=== PATIENT | female | born 1995 | race Caucasian/White ===

== ENCOUNTER 2016-06-20 08:19 | Outpatient (CLI) | payer OTHER ==
[2016-06-20 09:00] VITALS: BP 124/77; PULSE 93; RESP 18; TEMP 98
[2016-06-20 09:07] VITALS: BMI 24.0
--- NOTE | 2016-06-20 10:40 | US ---
EXAMINATION TYPE: US OB >= 14 wk fetus DATE OF EXAM: 06/20/2016 10:01 AM COMPARISON: None CLINICAL HISTORY: patient fell on her abdomen this morning at 6:30am TECHNIQUE: Transabdominal (TA) GESTATIONAL AGE / DATING Physician Established: (26 weeks/6 days) EDC: 09/20/2016 Dates by LMP: unknown Dates by First Scan: not available Dates by Current Scan: (23 weeks/6 days) EDC: 10/11/16 SURVEY IUP: Single PLACENTA: Posterior PREVIA: No Previa SANDEEP: 12.0 cm CERVICAL LENGTH (transabdominal: norm > 3.0cm): 3.2 cm Not well visualized, ok per Jannette DODD not to d o a transvag cervix BIOMETRY PRESENTATION: Vertex BPD: 5.9 cm 24weeks / 2 days HC: 22.3 cm 24 weeks / 2 days AC: 19.4 cm 24. weeks / 0 days FL: 4.4 cm 24 weeks / 2 days ESTIMATED WEIGHT IN GRAMS: 670 grams ESTIMATED WEIGHT IN LBS/OZS: 1 lbs. 8 oz. WEIGHT PERCENTAGE BASED ON ESTABLISHED DATES: 3% HC/AC: 1.2 FL/AC: 22.5 HEART RATE: 150 bpm RHYTHM: Normal TECHNOLOGIST IMPRESSION: the anterior portion of the placenta appears somewhat heterogenous, probabl e placental lakes. Dates 3 weeks behind, notified Jannette DODD of these preliminary findings. IMPRESSION: 1. Single intrauterine gestation estimated at 23 weeks 6 days gestation based on the current ultrasou nd measurements. This would have a calculated EDC of 10/11/2016. Correlate this with her physician est ablish EDC of 09/20/2016. There is a discrepancy between expected age and current estimates. 2. Cardiac activity measures 150 bpm. 3. No acute changes evident
== END 2016-06-20 10:40 | disposition home or self-care (01) ==
LOC: FBPOP 08:19
PROVIDERS: ATTEND Obstetrics & Gynecology
DX: O20.9 Hemorrhage in early pregnancy, unspecified (principal); M25.531 Pain in right wrist; Z3A.23 23 weeks gestation of pregnancy
CPT/HCPCS: 76805; G0463; 99213

== ENCOUNTER 2016-06-20 10:51 | Emergency (ER) | payer OTHER ==
--- NOTE | 2016-06-20 11:14 | ED ---
Upper Extremity HPI - General Chief Complaint: Extremity Injury, Upper Stated Complaint: wrist pain, cleared by mother/baby Time Seen by Provider: 06/20/16 11:07 Source: patient, RN notes reviewed Mode of arrival: ambulatory Limitations: no limitations - History of Present Illness Initial Comments: 20-year-old female who is currently presents to the emergency Department chief complaint of right wrist pain. Patient states she's been falling onto her right wrist. Patient points to the ulnar area of the wrist for pain. Patient states pain is moderate worsening movement. Patient states she has a history of breaking her wrist in the past. Patient states started with that mother baby and was down here. Patient states it hurts bad enough that she bruises is broken and she believes that she needs an x-ray. Patient denies any other injuries from the incident. Patient denies any abdominal pain at this time. Patient denies any recent fever, chills, shortness of breath, chest pain, back pain, abdominal pain, nausea vomiting, numbness or tingling, dysuria or hematuria, constipation or diarrhea, headaches or visual changes, or any other current symptoms. - Related Data Home Medications Medication Instructions Recorded Confirmed Acetaminophen Tab [Tylenol Tab] 1,000 mg PO Q6HR PRN 03/07/16 06/20/16 Pnv with Ca,No.72/Iron/FA 1 tab PO DAILY 06/20/16 06/20/16 [ Plus Tablet] Allergies Allergy/AdvReac Type Severity Reaction Status Date / Time No Known Allergies Allergy Verified 06/20/16 11:14 Review of Systems ROS Statement: Those systems with pertinent positive or pertinent negative responses have been documented in the HPI. ROS Other: All systems not noted in ROS Statement are negative. Past Medical History Past Medical History: No Reported History Additional Past Medical History / Comment(s): Obstetric history: She has had 2 previous vaginal deliveries. This is her third and she has had care with me since 10 weeks. O+, abs neg, Rub Imm, RPR NR, Hep B neg, HIV NR. This started as twins but there was a vanishing twin who passed at 8 weeks. Neg quad screen, normal anatomy US and normal echo. normal 1hr GTT and GBS neg. History of Any Multi-Drug Resistant Organisms: None Reported Past Surgical History: No Surgical Hx Reported Additional Past Anesthesia/Blood Transfusion Reaction / Comment(s): n o hx. Past Psychological History: No Psychological Hx Reported Smoking Status: Current every day smoker Past Alcohol Use History: None Reported Past Drug Use History: None Reported - Past Family History Brother(s) Additional Family Medical History / Comment(s): hemophilia Father Family Medical History: No Reported History General Exam - General Exam Comments Initial Comments: General: The patient is awake and alert, in no distress, and does not appear acutely ill. Neck: The neck is supple, there is no tenderness. Cardiovascular: There is a regular rate and rhythm. No murmur, rub or gallop is appreciated. Respiratory: Lungs are clear to auscultation, respirations are non-labored, breath sounds are equal. No wheezes, stridor, rales, or rhonchi. Musculoskeletal: Patient has 2+ pulses at the right lower extremity. Full range of motion of the right elbow on the right wrist with tenderness on full extension and flexion. Tenderness to palpation of the distal aspect of the ulna. No tenderness to palpation throughout the hand or digits. No anatomical snuffbox tenderness. No tenderness to palpation of the right elbow. Neurological: CN II-XII intact, There are no obvious motor or sensory deficits. Coordination appears grossly intact. Speech is normal. Skin: Skin is warm and dry and no rashes or lesions are noted. Psychiatric: Normal mood and affect. Limitations: no limitations Course Vital Signs 06/20/16 11:03 Temperature 98.6 F Pulse Rate 85 Respiratory 20 Rate Blood Pressure 141/64 O2 Sat by Pulse 99 Oximetry Medical Decision Making - Medical Decision Making 20-year-old female presents emergency Department chief complaint of right wrist pain. At this time we did discuss risk of getting an x-ray. We did discuss that she does have point tenderness however. Patient states she would like an x -ray she does believe that it is broken and is causing her some discomfort. Patient will undergo the x-ray the patient does state that she understands the risk. X-ray of the wrist is reviewed and does show a wrist contusion. We discussed Follow-Up. Discussed Return Parameters. We Discussed Tylenol for Pain Control. Patient States That She Understood All Questions Have Been Answered. Discharged Home. - Radiology Data Radiology results: report reviewed, image reviewed Disposition Clinical Impression: Contusion of right wrist, initial encounter Disposition: HOME SELF-CARE Condition: Stable Instructions: Contusion in Adults (ED) Additional Instructions: Please use medication as discussed. Please follow up with family doctor if symptoms have not improved over the next two days. Please return to the emergency room if your symptoms increase or worsen or for any other concerns. Referrals: Anjel El MD [Primary Care Provider] - 1-2 days Time of Disposition: 11:34
--- NOTE | 2016-06-20 11:26 | XR ---
EXAMINATION TYPE: XR wrist complete RT DATE OF EXAM: 06/20/2016 11:19 AM COMPARISON: NONE HISTORY: Pain, fall TECHNIQUE: 4 view right wrist FINDINGS: No acute fractures are evident. Joint spaces are preserved. Soft tissues are normal. If there is pain at the anatomic snuff box, nuclear medicine bone scan can be performed for additiona l evaluation. Follow-up examinations can be performed 7-10 days from acute trauma for continued pain. IMPRESSION: 1. Normal 4 view right wrist
[2016-06-20 12:06] VITALS: BP 126/62; PULSE 104; RESP 16; TEMP 98.1
== END 2016-06-20 12:05 | disposition home or self-care (01) ==
LOC: EC 10:51
DX: O26.899 Other specified pregnancy related conditions, unspecified trimester (principal); O99.330 Smoking (tobacco) complicating pregnancy, unspecified trimester; S60.211A Contusion of right wrist, initial encounter; W19.XXXA Unspecified fall, initial encounter
CPT/HCPCS: 76805; 99213; 99283

== ENCOUNTER → 2016-07-24 | Outpatient (CLI) | payer OTHER ==
[2016-07-24 10:43] LABS: CH 31.7; CHCM 33.6; HDW 2.77; HGB 11.1 gm/dL (11.4-16.0); MCHC 32.7 g/dL (31.0-37.0); MCV 94.7 fL (80.0-100.0); RBC 3.59 m/uL (3.80-5.40); RDW 12.7 % (11.5-15.5); WBC 7.8 k/uL (3.8-10.6)
[2016-07-24 10:59] LABS: Non-African American GFR(MDRD) >60 (>60 ml/min/1.73 sqM)
[2016-07-24 11:29] LABS: Hepatitis B Surface Ag Index 0.06
[2016-07-25 06:48] LABS: HIV-1/HIV-2 Ab Screen NONREAC (NON REAC)
== END | disposition home or self-care (01) ==
LOC: LABWHC1 09:24
PROVIDERS: ATTEND Obstetrics & Gynecology
DX: O26.812 Pregnancy related exhaustion and fatigue, second trimester (principal); Z3A.00 Weeks of gestation of pregnancy not specified
CPT/HCPCS: 36415; 82565; 82950; 85027; 86762; 86780; 86850; 86900; 86901; 87340; 87389

== ENCOUNTER → 2016-09-11 | Outpatient (CLI) | payer OTHER ==
--- NOTE | 2016-09-11 15:41 | US ---
EXAMINATION TYPE: US OB anatomy transabd DATE OF EXAM: 09/11/2016 2:49 PM COMPARISON: earlier scans in pacs HISTORY: lga, no complaints per pt TECHNIQUE: Transabdominal (TA) EXAM MEASUREMENTS: GESTATIONAL AGE / DATING Physician Established: (35 weeks/6 days) EDC: 10/10/16 Dates by LMP: uncertain lmp Dates by First Scan: (35 weeks/6 days) EDC: 10/10/16 Dates by Current Scan for: (36 weeks/4 days) EDC: 10/05/16 SURVEY IUP: Single PLACENTA: Fundal PREVIA: No previa SANDEEP: 11.3 cm Normal CERVICAL LENGTH (transabdominal: norm > 3.0cm): 4.8 cm BIOMETRY PRESENTATION: Vertex LIE: Longitudinal BPD: 8.9 cm 36 weeks / 1 days HC: 32.8 cm 37 weeks / 2 days AC: 32.5 cm 36 weeks / 3 days FL: 7.1 cm 36 weeks / 2 days ESTIMATED WEIGHT IN GRAMS: 2939 grams ESTIMATED WEIGHT IN LBS/OZS: 6 lbs. 8 oz. WEIGHT PERCENTAGE BASED ON ESTABLISHED DATE: 67 % HC/AC: 1.01 FL/AC: 21 HEART RATE: 129 bpm RHYTHM: Normal ANATOMY SEEN (within normal limits): * Lateral Vent (< 1 cm) 0.7 cm * Midline Falx Four Chamber Heart Stomach Situs Nose / Lips Diaphragm Kidneys (bilateral) Bladder Cord Insert Three Vessel Cord Longitudinal Spine Transverse Spine ANATOMY NOT SEEN: Arms (bilateral) Legs (bilateral) Outflow tracts: LVOT/RVOT Cavus Septi Pellucidi Choroid Plexus (bilateral) Cisterna Magna (< 1.1 cm) cm * Cerebellum (varies with age) cm Viable iup, growth congruent with established dates, no abnormality seen by ultrasound, exam limitati ons due to advanced age and lie. IMPRESSION: DEL RIO FETUS PRESENT IN A VERTEX LIE WITH A GESTATIONAL AGE OF 36 WEEKS 4 DAYS +/- 3 WEEKS. ESTIMA DONOVAN DATE OF CONFINEMENT BASED ON THIS EXAMINATION IS 10/05/2016. PLEASE NOTE THAT THE MORPHOLOGIC EXAMINATION IS QUITE LIMITED.
== END | disposition home or self-care (01) ==
LOC: RADUSWWP 14:07
PROVIDERS: ATTEND Obstetrics & Gynecology
DX: O36.63X0 Maternal care for excessive fetal growth, third trimester, not applicable or unspecified (principal); Z3A.36 36 weeks gestation of pregnancy
CPT/HCPCS: 76811

== ENCOUNTER 2016-09-24 00:22 | Outpatient (CLI) | payer OTHER ==
[2016-09-24 12:26] VITALS: BP 131/70; RESP 18; TEMP 97.6
[2016-09-24 12:31] LABS: Appearance,Urine Clear (Clear); Bilirubin,Urine Negative (Negative); Glucose,Urine (UA) Negative (Negative); Ketones,Urine Negative (Negative); Leukocyte Esterase,Urine Negative (Negative); Nitrite,Urine Negative (Negative); PH, Urine 6.5 (5.0-8.0); Protein,Urine Trace (Negative); Specific Gravity,Urine 1.021 (1.001-1.035); UA Billing (MACRO vs. MICRO) CHEM
[2016-09-24] MEDS ORDERED: ONDANSETRON 4 MG TAB PO ONE (13:00)
[2016-09-24 13:47] VITALS: PULSE 86
--- NOTE | 2016-09-24 20:18 | P.MSEPDOC ---
Presenting Problems - Arrival Data Date of Arrival on Unit: 09/24/16 Time of Arrival on Unit: 00:23 Mode of Transport: Wheelchair - Complaint OB-Reason for Admission/Chief Complaint: Possible Onset of Labor, Acute Nausea/ Vomiting Comment: n/v onset 4 hrs ago. multiple occasions. states unable to keep fluids down. Medical History - Information : 4 Para: 3 Term: 3 : 0 Abortions: Spontaneous or Elective: 0 Number of Living Children: 3 - Gestational Age Expected Date of Delivery: 10/10/16 Gestational Age by KELLY (wks/days): 37 Weeks and 5 Days - History Complications: Smoker Review of Systems - Review of Systems Constitutional: No problems Breast: No problems ENT: No problems Cardiovascular: No problems Respiratory: No problems Genitourinary: No problems Musculoskeletal: No problems Neurological: No problems Skin: No problems Comment: n/v Vital Signs - Temperature Temperature: 97.6 F Temperature Source: Oral - Pulse Right Pulse Rate: 86 Pulse Assessment Method: Automatic Cuff - Respirations Respiratory Rate: 18 Oxygen Delivery Method: Room Air - Blood Pressure Right Arm Blood Pressure: 131/70 Blood Pressure Mean: 90 Blood Pressure Source: Automatic Cuff Medical Screen Scoring (Pre) - Cervical Exam Dilation: 1-3 cm = 1 Membranes: Intact - Uterine Contractions Frequency: N/A Duration: N/A Intensity: N/A - Maternal Vital Signs Maternal Temperature: N/A Maternal Blood Pressure: N/A Signs of Preeclampsia: N/A Maternal Respirations: N/A - Maternal Trauma Maternal Trauma: N/A - Assessment Baseline FHR: 135 Heart Rate - NICHD Category: Category I (Normal) = 0 NST: Reactive Position: N/A Station: N/A - Total Score Total Score (Pre): 1 - Level of Risk Level of Risk: Low (0-5) Physician Notification (Pre) - Physician Notified Physician/Practitioner Notifed:: yes Spoke With: ezekiel - Notification Comment Comment: zofran 4 mg po. disch home. push fluids. advance diet slowly. keep appt with dr worrell on . if any worsening of symptoms call Medical Screen Scoring (Post) - Cervical Exam Dilation: Exam Deferred Effacement: Exam Deferred Membranes: Intact - Uterine Contractions Frequency: N/A Duration: N/A Intensity: N/A - Maternal Vital Signs Maternal Temperature: N/A Maternal Blood Pressure: N/A Signs of Preeclampsia: N/A Maternal Respirations: N/A - Maternal Trauma Maternal Trauma: N/A - Assessment Heart Rate: 135 Heart Rate - NICHD Category: Category I (Normal) = 0 NST: Reactive Position: N/A Station: N/A - Total Score Total Score (Post): 0 - Post Treatment Level of Risk Post Treatment Level of Risk: N/A Physician Notification (Post) - Physician Notified Physician Notified Date: 09/24/16 Physician Notified Time: 13:15 Physician/Practitioner Notified:: ezekiel Spoke With: ezekiel New Order Received: Yes - Notification Comment Comment: discharge home Disposition - Disposition OB Disposition: Discharge to home Discharge Date: 09/24/16 Discharge Time: 13:45 I agree with the RN Medical Screening Exam: Yes Risk & Benefit of care provided described in d/c instruction: Yes Diagnosis: LATE VOMITING OF
== END 2016-09-24 02:40 | disposition home or self-care (01) ==
LOC: FBPOP 00:22
PROVIDERS: ATTEND Obstetrics & Gynecology
DX: O21.2 Late vomiting of pregnancy (principal); Z3A.37 37 weeks gestation of pregnancy
CPT/HCPCS: 59025; 81003; G0463; 99213; 99214

== ENCOUNTER 2016-09-24 11:31 | Outpatient (CLI) | payer OTHER ==
[2016-09-24] MEDS ORDERED: ONDANSETRON 4 MG TAB PO ONE ×2 (13:24→13:33)
[2016-09-24 15:00] VITALS: BP 131/70; PULSE 90; RESP 18
[2016-09-24 15:29] VITALS: TEMP 97.6
--- NOTE | 2016-09-24 20:19 | P.MSEPDOC ---
Presenting Problems - Arrival Data Date of Arrival on Unit: 09/24/16 Time of Arrival on Unit: 11:40 Mode of Transport: Ambulatory - Complaint OB-Reason for Admission/Chief Complaint: Possible Onset of Labor, Acute Nausea/ Vomiting Medical History - Information : 4 Para: 3 Term: 3 : 0 Abortions: Spontaneous or Elective: 0 Number of Living Children: 0 - Gestational Age Expected Date of Delivery: 10/10/16 Gestational Age by KELLY (wks/days): 37 Weeks and 5 Days Review of Systems - Review of Systems Constitutional: No problems Breast: No problems ENT: No problems Cardiovascular: No problems Respiratory: No problems Genitourinary: No problems Musculoskeletal: No problems Neurological: No problems Skin: No problems Comment: n/v x 4 hrs Vital Signs - Temperature Temperature: 97.6 F Temperature Source: Oral - Pulse Right Brachial Pulse Rate: 90 Pulse Assessment Method: Automatic Cuff - Respirations Respiratory Rate: 18 Oxygen Delivery Method: Room Air O2 Sat by Pulse Oximetry: 98 - Blood Pressure Right Arm Blood Pressure: 131/70 Blood Pressure Mean: 90 Blood Pressure Source: Automatic Cuff Medical Screen Scoring (Pre) - Cervical Exam Dilation: 1-3 cm = 1 Effacement: Exam Deferred Membranes: Intact - Uterine Contractions Frequency: N/A Duration: N/A Intensity: N/A - Maternal Vital Signs Maternal Temperature: N/A Maternal Blood Pressure: N/A Signs of Preeclampsia: N/A Maternal Respirations: N/A - Maternal Trauma Maternal Trauma: N/A - Assessment Baseline FHR: 135 Heart Rate - NICHD Category: Category I (Normal) = 0 NST: Reactive Position: N/A Station: N/A - Total Score Total Score (Pre): 1 - Level of Risk Level of Risk: Low (0-5) Physician Notification (Pre) - Physician Notified Spoke With: ezekiel - Notification Comment Comment: zofran 4 mg po x 1 and dis ch home. to keep next sched appt Medical Screen Scoring (Post) - Cervical Exam Dilation: 1-3 cm = 1 Effacement: Exam Deferred Membranes: Intact - Uterine Contractions Frequency: N/A Duration: N/A Intensity: N/A - Maternal Vital Signs Maternal Temperature: N/A Maternal Blood Pressure: N/A Signs of Preeclampsia: N/A Maternal Respirations: N/A - Maternal Trauma Maternal Trauma: N/A - Assessment Heart Rate: 135 Heart Rate - NICHD Category: Category I (Normal) = 0 NST: Reactive Position: N/A Station: N/A - Total Score Total Score (Post): 1 - Post Treatment Level of Risk Post Treatment Level of Risk: Low (0-5) Physician Notification (Post) - Physician Notified Physician Notified Date: 09/24/16 Physician Notified Time: 13:15 Physician/Practitioner Notified:: ezekiel New Order Received: Yes - Notification Comment Comment: disch prder received Disposition - Disposition OB Disposition: Discharge to home Discharge Date: 09/24/16 Discharge Time: 13:45 I agree with the RN Medical Screening Exam: Yes Risk & Benefit of care provided described in d/c instruction: Yes Diagnosis: LATE VOMITING OF
== END 2016-09-24 13:45 | disposition home or self-care (01) ==
LOC: FBPOP 11:31
PROVIDERS: ATTEND Obstetrics & Gynecology
DX: O21.2 Late vomiting of pregnancy (principal); Z3A.37 37 weeks gestation of pregnancy
CPT/HCPCS: 59025; G0463; 99214

== ENCOUNTER 2016-10-02 14:43 | Inpatient (IN) | payer OTHER ==
[2016-10-02] MEDS ORDERED: TERBUTALINE 1 MG/ML VIAL SQ PRN (17:16)
[2016-10-02] MEDS ORDERED: OXYTOCIN 10 UNIT/ML 1 ML VIAL IM PRN (17:16)
[2016-10-02] MEDS ORDERED: LIDOCAINE 1% (PF) 10 MG/ML (30 ML SDV) SQ PRN (17:16)
[2016-10-02] MEDS ORDERED: METHYLERGONOVINE 0.2 MG/ML 1 ML AMP IM PRN (17:16)
[2016-10-02] MEDS ORDERED: CARBOPROST TROMETHAMINE 250 MCG/ML 1 ML AMP IM PRN (17:16)
[2016-10-02] MEDS ORDERED: AMPICILLIN 2,000 MG in SODIUM CHLORIDE 0.9% 100 ML IVPB STA (17:19)
[2016-10-02] MEDS: LACTATED RINGERS 1,000 ML IV SCH ×2 (17:28→19:07)
[2016-10-02 17:43] LABS: Basophils % (A) 0 %; CHCM 33.3; Eosinophils # (A) 0.1 k/uL (0-0.7); Eosinophils % (A) 1 %; HCT 34.9 % (34.0-46.0); HDW 3.29; HGB 11.4 gm/dL (11.4-16.0); Luc # (Auto) 0.21; Luc % (Auto) 2; Lymphocytes # (A) 1.8 k/uL (1.0-4.8); Lymphocytes % (A) 15 %; MCH 29.7 pg (25.0-35.0); MCHC 32.8 g/dL (31.0-37.0); MCV 90.7 fL (80.0-100.0); Mean Platelet Volume 8.7; Monocytes # (A) 0.6 k/uL (0-1.0); Monocytes % (A) 5 %; Neutrophils # (A) 9.4 k/uL (1.3-7.7); Neutrophils % (A) 78 %; RBC 3.85 m/uL (3.80-5.40); RDW 14.3 % (11.5-15.5); WBC 12.2 k/uL (3.8-10.6); WBC (Perox) 12.39
[2016-10-02 17:47] VITALS: BMI 29.1
--- NOTE | 2016-10-02 18:24 | P.HPOB ---
History of Present Illness H&P Date: 10/02/16 Chief Complaint: Contractions This patient is a 21-year-old 4 para 3 female estimated date of confinement 10/10/2016 estimated gestational age 38-6/7 weeks who presents to labor and delivery with regular painful contractions. Patient most recently was seen in the office per Dr. Alejandro and was 2 cm dilated and is now 4 cm dilated thought to be in active labor. care is per Dr. Alejandro appears to be uncomplicated although she did have a urine culture positive for group B strep. Vaginal culture was negative. Review of Systems Constitutional: Denies chills, Denies fever Ears, nose, mouth and throat: Denies headache, Denies sore throat Cardiovascular: Denies chest pain, Denies shortness of breath Respiratory: Denies cough Gastrointestinal: Reports heartburn Genitourinary: Reports Menstruation: Reports amenorrhea Past Medical History Past Medical History: No Reported History Additional Past Medical History / Comment(s): Patient has had 3 spontaneous vaginal deliveries ranging from 8 lbs. 9 oz.-9 lbs. 6 oz. History of Any Multi-Drug Resistant Organisms: None Reported Past Surgical History: No Surgical Hx Reported Past Anesthesia/Blood Transfusion Reactions: No Reported Reaction Additional Past Anesthesia/Blood Transfusion Reaction / Comment(s): n o hx. Past Psychological History: No Psychological Hx Reported Smoking Status: Current every day smoker Past Alcohol Use History: None Reported Past Drug Use History: None Reported - Past Family History Brother(s) Additional Family Medical History / Comment(s): hemophilia Father Family Medical History: No Reported History Medications and Allergies Home Medications Medication Instructions Recorded Confirmed Type Acetaminophen Tab [Tylenol Tab] 650 mg PO DIRECTED PRN 03/07/16 09/24/16 History Allergies Allergy/AdvReac Type Severity Reaction Status Date / Time No Known Allergies Allergy Verified 10/02/16 14:55 Exam - Vital Signs Vital signs: Vital Signs Temp Pulse Resp BP 10/02/16 17:34 97.6 F 93 16 129/71 10/02/16 16:50 97.6 F 93 16 129/71 Intake and Output 10/02/16 10/02/16 10/02/16 06:59 14:59 22:59 Other: Weight 97.522 kg 97.522 kg Patient Weight 10/03/16 06:59 Weight 97.522 kg - OBG Physical Exam Abdomen: bowel sounds normal, no diffuse tenderness, no bruit present, no guarding noted, no hepatomegaly, no splenomegaly, no mass Vulva: both: normal Vagina: normal moisture, no discharge Cervix: no lesion (Cervix is 4 cm dilated and 50% effaced.), no discharge Uterus: enlarged (Fundal height is consistent with a term .) Results blood work shows she is O positive, rubella nonimmune, RPR nonreactive , HIV nonreactive, hepatitis B negative, group B strep vaginal culture was negative, ultrasounds have been normal. Result Diagrams: 10/02/16 17:26 Abnormal Lab Results - Last 24 Hours (Table) 10/02/16 Range/Units 17:26 WBC 12.2 H (3.8-10.6) k/uL Neutrophils # 9.4 H (1.3-7.7) k/uL Assessment and Plan (1) Normal labor Narrative/Plan: This is a pleasant 21-year-old 4 para 3 female 38-6/7 weeks' gestation in early active labor. Patient has a history of positive group B strep urine culture. Plan is antibiotic prophylaxis due to suspected colonization and anticipate vaginal delivery. Status: Acute (2) H/O group B Streptococcus urinary tract infection, currently Status: Acute
[2016-10-02] MEDS ORDERED: fentaNYL (PF) 50 MCG/ML 5 ML AMP ONE (18:45)
[2016-10-02] MEDS ORDERED: SODIUM CHLORIDE 0.9% 100 ML BAG ONE (18:45)
[2016-10-02] MEDS ORDERED: OXYTOCIN 30 UNITS/500 ML NS 30 UNIT in SALINE 1 500ML.BAG IV SCH (18:45)
[2016-10-02] MEDS ORDERED: BUPIVACAINE (PF) 0.25% 30 ML VIAL ONE (18:45)
[2016-10-02] MEDS ORDERED: BUPIVACAINE (PF) 0.25% 25 ML, fentaNYL (PF) 200 MCG in SODIUM CHLORIDE 0.9% 71 ML EPIDURAL ONE (21:27)
[2016-10-02] MEDS ORDERED: AMPICILLIN 1,000 MG in SODIUM CHLORIDE 0.9% 50 ML IVPB SCH (21:30)
[2016-10-02] MEDS ORDERED: WITCH HAZEL 1 EACH MED..PAD TOPICAL PRN (21:56)
[2016-10-02] MEDS ORDERED: Acetaminophen-Codeine 300-30mg TAB PO PRN (21:56)
[2016-10-02] MEDS ORDERED: LANOLIN CREAM 5 GM TUBE TOPICAL PRN (21:56)
[2016-10-02] MEDS ORDERED: diphenhydrAMINE 25 MG CAP PO PRN (21:56)
[2016-10-02] MEDS ORDERED: ACETAMINOPHEN TAB 325 MG TAB PO PRN (21:56)
[2016-10-02] MEDS ORDERED: ZOLPIDEM 5 MG TAB PO PRN (21:56)
[2016-10-02] MEDS ORDERED: BENZOCAINE/MENTHOL SPRAY 1 GM/SPRAY AEROSOL TOPICAL PRN (21:56)
[2016-10-02] MEDS ORDERED: diphenhydrAMINE 50 MG/ML 1 ML VIAL IVP PRN (21:56)
[2016-10-02] MEDS ORDERED: HYDROCORTISONE 2.5% RECTAL CREAM 30 GM TUBE RECTAL PRN (21:56)
[2016-10-02] MEDS ORDERED: SIMETHICONE 80 MG CHEWABLE PO PRN (21:56)
[2016-10-02] MEDS ORDERED: MEASLES-MUMPS-RUBELLA VACC/PF 12,500 UNIT/0.5 ML VIAL SQ ONE (21:56)
[2016-10-02] MEDS ORDERED: BISACODYL 10 MG SUPP RECTAL PRN (21:56)
--- NOTE | 2016-10-02 22:02 | P.PROBDLV ---
Vaginal Delivery Note - . Vaginal Delivery Note: Normal vaginal delivery viable male Apgars 9 and 9 delivery time is 2144 hrs. Please see dictated H&P for intimate details of this patient's admission. Brief summary this is a 21-year-old 4 para 3 female 38-6/7 weeks gestation admitted to labor and delivery in early labor patient has artificial rupture membranes for clear fluid at 4 cm. Labor progresses and she does get an epidural for pain control. Patient progresses quickly thereafter to complete pushes the head to the perineum. The posterior perineum was supported and we have controlled delivery of 's head over the intact perineum. Mouth and nares are bulb suctioned. With gentle downward traction we have delivery the anterior and posterior shoulder and rest this infant's body. This is a vigorous viable male Apgars are 9 and 9 delivery time is 2144 hrs. After delivery of the the umbilical cords doubly clamped and cut the infant is laid on the mother's abdomen. The placenta is then spontaneously delivered intact. Estimated blood loss is 150 mL. There are no lacerations and no repair is necessary. and mother are stable in delivery room. All counts are correct 3. There are no complications.
[2016-10-02] MEDS: IBUPROFEN 600 MG TAB PO PRN (22:15)
[2016-10-03] MEDS: NICOTINE 14MG/24HR PATCH TRANSDERM SCH ×2 (00:32→02:04)
[2016-10-03] MEDS: Acetaminophen-Codeine 300-30mg TAB PO PRN ×4 (00:33→18:09)
[2016-10-03] MEDS: IBUPROFEN 600 MG TAB PO PRN ×4 (04:09→22:50)
--- NOTE | 2016-10-03 06:21 | P.PNOBGVD ---
Subjective - Subjective Patient reports: Reports appetite normal, Reports voiding normally, Reports pain well controlled, Reports ambulating normally : doing well Objective - Latest Vital Signs Latest vital signs: Vital Signs Temp Pulse Resp BP 10/03/16 04:00 98.2 F 79 16 124/76 10/02/16 23:56 98.6 F 81 16 123/62 10/02/16 23:26 76 16 130/62 10/02/16 22:56 78 16 140/70 10/02/16 22:41 73 16 119/64 10/02/16 22:26 78 16 131/70 10/02/16 22:12 73 16 132/72 10/02/16 21:57 97.5 F L 78 16 140/67 10/02/16 17:34 97.6 F 93 16 129/71 10/02/16 16:50 97.6 F 93 16 129/71 Intake and Output 10/02/16 10/02/16 10/03/16 14:59 22:59 06:59 Intake Total 1003.317 Output Total 150 Balance 853.317 Intake: Intake, IV Titration 1003.317 Amount Lactated Ringers 1,000 ml 1000 @ 125 mls/hr IV .Q8H BREEZY Rx#:[id number] Oxytocin 30 Units/500 ml 3.317 Ns 30 unit In Saline 1 500ml.bag @ 1 MILLIUNIT/ MIN 1 mls/hr IV .Q24H BREEZY Rx#:[id number] Output: Estimated Blood Loss 150 Other: # Voids 1 Weight 97.522 kg 97.522 kg Patient Weight 10/03/16 06:59 Weight 97.522 kg - Exam Lungs: bilateral: normal Chest: Normal S1, Normal S2 Extremities: Present: normal Abdomen: Present: normal appearance, soft Uterus: Present: normal, firm - Labs Labs: Abnormal Lab Results - Last 24 Hours (Table) 10/02/16 Range/Units 17:26 WBC 12.2 H (3.8-10.6) k/uL Neutrophils # 9.4 H (1.3-7.7) k/uL Assessment and Plan (1) Normal labor Narrative/Plan: day #1. Patient is resting without complaints. Vital signs are stable she is afebrile. Uterus is firm nontender she's having normal lochia. My impression is this is a normal course. Plan is to continue routine care discharge home tomorrow. Current Visit: Yes Status: Acute Code(s): O80 - ENCOUNTER FOR FULL-TERM UNCOMPLICATED DELIVERY; Z37.9 - OUTCOME OF DELIVERY, UNSPECIFIED SNOMED Code(s ): 04493117 (2) H/O group B Streptococcus urinary tract infection, currently Current Visit: Yes Status: Acute Code(s): O09.899 - SUPERVISION OF OTHER HIGH RISK PREGNANCIES, UNSP TRIMESTER; Z87.440 - PERSONAL HISTORY OF URINARY ( TRACT) INFECTIONS SNOMED Code(s): 56296800
[2016-10-03] MEDS: SENNOSIDES-DOCUSATE SODIUM 1 EACH TAB PO SCH ×2 (07:48→20:17)
[2016-10-03] MEDS ORDERED: NICOTINE 14MG/24HR PATCH TRANSDERM SCH (09:00)
[2016-10-04] MEDS: Acetaminophen-Codeine 300-30mg TAB PO PRN (03:02)
--- NOTE | 2016-10-04 06:08 | P.PNOBGVD ---
Subjective - Subjective Patient reports: Reports appetite normal, Reports voiding normally, Reports pain well controlled, Reports ambulating normally : doing well Objective - Latest Vital Signs Latest vital signs: Vital Signs Temp Pulse Resp BP 10/04/16 00:00 97.6 F 76 16 136/80 10/03/16 16:00 98.3 F 77 16 129/72 10/03/16 08:00 98.2 F 87 18 128/73 Intake and Output 10/03/16 10/03/16 10/04/16 14:59 22:59 06:59 Other: # Voids 1 - Exam Lungs: bilateral: normal Chest: Normal S1, Normal S2 Extremities: Present: normal Abdomen: Present: normal appearance, soft Uterus: Present: normal, firm Assessment and Plan (1) Normal labor Narrative/Plan: day #2. Patient is resting without complaints. Vital signs are stable she is afebrile. Uterus is firm nontender she's having normal lochia. My impression this is a normal course. Plan is to continue routine care discharge home today. Current Visit: Yes Status: Acute Code(s): O80 - ENCOUNTER FOR FULL-TERM UNCOMPLICATED DELIVERY; Z37.9 - OUTCOME OF DELIVERY, UNSPECIFIED SNOMED Code(s ): 44177877 (2) H/O group B Streptococcus urinary tract infection, currently Current Visit: Yes Status: Acute Code(s): O09.899 - SUPERVISION OF OTHER HIGH RISK PREGNANCIES, UNSP TRIMESTER; Z87.440 - PERSONAL HISTORY OF URINARY ( TRACT) INFECTIONS SNOMED Code(s): 59994247
--- NOTE | 2016-10-04 06:14 | P.DS ---
Providers Date of admission: 10/02/16 17:13 Expected date of discharge: 10/04/16 Attending physician: Oliver Eastman Primary care physician: Glory Alejandro - Discharge Diagnosis(es) (1) Normal labor Current Visit: Yes Status: Acute (2) H/O group B Streptococcus urinary tract infection, currently Current Visit: Yes Status: Acute Hospital Course: Please see dictated H&P for intimate details of this patient's admission. Brief summary this is a 21-year-old 4 para 3 female 38-6/7 weeks gestation who is admitted to labor and delivery in active labor. Patient goes on to have a vaginal delivery viable male . Please see dictated delivery note. day #2 patient is without complaints and wishes to go home. Patient's felt be stable for discharge home follow up with Dr. Alejandro and 6 weeks. Procedures: Normal vaginal delivery. Patient Condition at Discharge: Good Plan - Discharge Summary New Discharge Prescriptions: Acetaminophen-Codeine 300-30mg [Tylenol w/codeine #3] 1 - 2 each PO Q4HR PRN # 30 tab PRN Reason: Mild Pain exceeding Tylenol Ibuprofen [Motrin] 600 mg PO Q6HR PRN #40 tab PRN Reason: Mild Pain Or Fever >= 100.5 Discharge Medication List Acetaminophen Tab [Tylenol Tab] 650 mg PO DIRECTED PRN 03/07/16 [History] Acetaminophen-Codeine 300-30mg [Tylenol w/codeine #3] 1 - 2 each PO Q4HR PRN # 30 tab 10/04/16 [Rx] Ibuprofen [Motrin] 600 mg PO Q6HR PRN #40 tab 10/04/16 [Rx] Follow up Appointment(s)/Referral(s): Glory Alejandro DO [Primary Care Provider] - 11/09/16 11:15 am Patient Instructions/Handouts: Vaginal Delivery (DC) Activity/Diet/Wound Care/Special Instructions: No intercourse or anything per vagina for 6 weeks. Please call if any fever, chills, excessive vaginal bleeding, and/or abdominal pain. Discharge Disposition: HOME SELF-CARE
[2016-10-04] MEDS: IBUPROFEN 600 MG TAB PO PRN (07:44)
[2016-10-04] MEDS: SENNOSIDES-DOCUSATE SODIUM 1 EACH TAB PO SCH (07:54)
[2016-10-04 08:09] VITALS: BP 125/80; PULSE 69; RESP 18; TEMP 98.3
== END 2016-10-04 09:27 | disposition home or self-care (01) | DRG 775 ==
LOC: FBPOP 14:43 → 4FBP 17:13
PROVIDERS: ADMIT Obstetrics & Gynecology; ATTEND Obstetrics & Gynecology
PROC: 10E0XZZ Delivery of Products of Conception, External Approach (ICD-10-PCS; principal; 2016-10-02)
PROC: 10907ZC Drainage of Amniotic Fluid, Therapeutic from Products of Conception, Via Natural or Artificial Opening (ICD-10-PCS; 2016-10-02)
PROC: 3E0134Z Introduction of Serum, Toxoid and Vaccine into Subcutaneous Tissue, Percutaneous Approach (ICD-10-PCS; 2016-10-02)
PROC: 3E0S3NZ Introduction of Analgesics, Hypnotics, Sedatives into Epidural Space, Percutaneous Approach (ICD-10-PCS; 2016-10-02)
DX: O99.334 Smoking (tobacco) complicating childbirth (principal); B95.1 Streptococcus, group B, as the cause of diseases classified elsewhere; O23.40 Unspecified infection of urinary tract in pregnancy, unspecified trimester; F17.200 Nicotine dependence, unspecified, uncomplicated; Z87.440 Personal history of urinary (tract) infections; Z37.0 Single live birth; Z3A.38 38 weeks gestation of pregnancy; Z23 Encounter for immunization; Z83.2 Family history of diseases of the blood and blood-forming organs and certain disorders involving the immune mechanism
CPT/HCPCS: 59025; 84112; 85025; 88307; 90471; 90707; 99213

== ENCOUNTER 2016-11-12 14:22 | Emergency (ER) | payer OTHER ==
[2016-11-12 14:43] VITALS: BP 136/69; PULSE 68; RESP 20; TEMP 98.4
[2016-11-12] MEDS ORDERED: IBUPROFEN 800 MG TAB PO STA (14:51)
--- NOTE | 2016-11-12 15:27 | XR ---
EXAMINATION TYPE: XR elbow complete LT DATE OF EXAM: 11/12/2016 3:21 PM COMPARISON: NONE HISTORY: Pain TECHNIQUE: 3 views FINDINGS: I see no fracture nor dislocation. Joint spaces are normal. There is no sign of elbow joint effusion. IMPRESSION: Negative left elbow exam.
--- NOTE | 2016-11-12 15:28 | XR ---
EXAMINATION TYPE: XR lumbosacral spine min 4V DATE OF EXAM: 11/12/2016 3:21 PM COMPARISON: NONE HISTORY: Back pain TECHNIQUE: 5 views FINDINGS: Vertebra have normal spacing and alignment. Posterior elements are intact. Sacroiliac joint s are normal. There is no evidence of a compression fracture. IMPRESSION: Negative lumbar spine exam.
--- NOTE | 2016-11-12 15:41 | ED ---
Upper Extremity HPI - General Chief Complaint: Extremity Injury, Upper Stated Complaint: L arm injury Time Seen by Provider: 11/12/16 14:45 Source: patient Mode of arrival: ambulatory Limitations: no limitations - History of Present Illness Initial Comments: Patient is 21-year-old female presenting to the emergency department with complaints of left elbow pain and left lumbar sacral back pain. Patient states she was sitting on a camping chair last night when she fell off and hit a bench. Patient states when she woke up this morning her left elbow and left lower back was aching. Patient denies recent illness, chills, fevers, nausea, vomiting, shortness of breath, chest pain, abdominal pain, numbness or tingling. Patient denies dysuria, hematuria, or urgency. Patient denies constipation or diarrhea. Patient states she took some Tylenol at 8 AM this morning. Patient currently rates pain 6 out of 10, described as aching. Exacerbated with movement, relieved with rest. - Related Data Home Medications Medication Instructions Recorded Confirmed Acetaminophen Tab [Tylenol Tab] 650 mg PO DIRECTED PRN 03/07/16 09/24/16 Previous Rx's Medication Instructions Recorded Acetaminophen-Codeine 300-30mg 1 - 2 each PO Q4HR PRN #30 tab 10/04/16 [Tylenol w/codeine #3] Ibuprofen [Motrin] 600 mg PO Q6HR PRN #40 tab 10/04/16 Ibuprofen [Motrin] 800 mg PO Q8H PRN #20 tab 11/12/16 Allergies Allergy/AdvReac Type Severity Reaction Status Date / Time No Known Allergies Allergy Verified 11/12/16 14:43 Review of Systems ROS Statement: Those systems with pertinent positive or pertinent negative responses have been documented in the HPI. ROS Other: All systems not noted in ROS Statement are negative. Past Medical History Past Medical History: No Reported History Additional Past Medical History / Comment(s): Patient has had 3 spontaneous vaginal deliveries ranging from 8 lbs. 9 oz.-9 lbs. 6 oz. History of Any Multi-Drug Resistant Organisms: None Reported Past Surgical History: No Surgical Hx Reported Past Anesthesia/Blood Transfusion Reactions: No Reported Reaction Additional Past Anesthesia/Blood Transfusion Reaction / Comment(s): n o hx. Past Psychological History: No Psychological Hx Reported Smoking Status: Current every day smoker Past Alcohol Use History: None Reported Past Drug Use History: None Reported - Past Family History Brother(s) Additional Family Medical History / Comment(s): hemophilia Father Family Medical History: No Reported History General Exam - General Exam Comments Initial Comments: GENERAL: Pt awake and alert, well-appearing, well-nourished, and in no acute distress. HEAD: Atraumatic, normocephalic. EYES: Pupils equal, round, and reactive to light, sclera anicteric, conjunctiva are normal. ENT: Moist mucous membranes. NECK:Normal range of motion, supple without lymphadenopathy. LUNGS: Breath sounds clear to auscultation bilaterally. No wheezes, rales, or rhonchi. HEART: Heart S1, S2, no S3 or S4. Regular rate and rhythm. No murmurs, rubs or gallops. ABDOMEN: Soft, nontender, nondistended, normoactive bowel sounds. No guarding, no rebound. No masses or organomegaly appreciated. EXTREMITIES: 2+ peripheral pulses. No edema. No calf tenderness. Full range of motion of all extremities. Tenderness to palpation of lateral left elbow. Tenderness to palpation of lumbar sacral region of left back. NEUROLOGICAL: Pt oriented x 3. No focal deficits noted. Strength and sensation grossly intact. PSYCH: Normal mood, normal affect. SKIN: Warm, dry, intact. No rashes or lesions. Limitations: no limitations Course Vital Signs 11/12/16 14:41 Temperature 98.4 F Pulse Rate 68 Respiratory 20 Rate Blood Pressure 136/69 O2 Sat by Pulse 100 Oximetry Medical Decision Making - Medical Decision Making Left lumbar sacral back pain and left lateral elbow pain status post fall without evidence of fracture or dislocation. Patient instructed to continue Motrin and Tylenol for pain as needed. Apply warm compresses and ice. Patient instructed to follow-up with orthopedic services if pain persists. Patient instructed to return to the emergency department with any new or worsening symptoms. Discharge instructions and return parameters reviewed. - Radiology Data Radiology results: report reviewed No acute fracture or dislocation of left elbow or lumbosacral spine. Disposition Clinical Impression: Back pain due to injury, Pain in left elbow Disposition: HOME SELF-CARE Condition: Good Instructions: Arthralgia (ED) Additional Instructions: Continue Motrin or Tylenol for pain. May apply ice or heat as needed. Follow- up with orthopedic service if pain persist. Please return to the emergency department if symptoms do not improve or get worse. Prescriptions: Ibuprofen [Motrin] 800 mg PO Q8H PRN #20 tab PRN Reason: Pain Referrals: Anjel El MD [Primary Care Provider] - 1-2 days Clark Newton PAC [PHYSICIAN [employer]] - 1-2 days Time of Disposition: 15:40
== END 2016-11-12 15:50 | disposition home or self-care (01) ==
LOC: EC 14:22
DX: S39.92XA Unspecified injury of lower back, initial encounter (principal); M25.522 Pain in left elbow; F17.200 Nicotine dependence, unspecified, uncomplicated; W07.XXXA Fall from chair, initial encounter
CPT/HCPCS: 72110; 99283

== ENCOUNTER → 2016-11-21 | Outpatient (CLI) | payer OTHER ==
[2016-11-21 12:17] LABS: Basophils % (A) 0 %; CH 29.3; CHCM 33.1; Eosinophils # (A) 0.1 k/uL (0-0.7); Eosinophils % (A) 2 %; HCT 38.4 % (34.0-46.0); HDW 2.52; HGB 12.8 gm/dL (11.4-16.0); Luc # (Auto) 0.13; Luc % (Auto) 2; Lymphocytes # (A) 1.7 k/uL (1.0-4.8); Lymphocytes % (A) 29 %; MCH 29.5 pg (25.0-35.0); MCHC 33.3 g/dL (31.0-37.0); MCV 88.7 fL (80.0-100.0); Mean Platelet Volume 8.1; Monocytes # (A) 0.3 k/uL (0-1.0); Monocytes % (A) 5 %; Neutrophils # (A) 3.7 k/uL (1.3-7.7); Neutrophils % (A) 62 %; RBC 4.34 m/uL (3.80-5.40); RDW 14.2 % (11.5-15.5); WBC (Perox) 6.26
== END | disposition home or self-care (01) ==
LOC: LABPAT 11:46
PROVIDERS: ATTEND Obstetrics & Gynecology
DX: Z01.812 Encounter for preprocedural laboratory examination (principal)
CPT/HCPCS: 85025

== ENCOUNTER 2016-11-24 11:03 | Day surgery (SDC) | payer OTHER ==
[2016-11-21 08:47] VITALS: BMI 23.0
--- NOTE | 2016-11-24 08:47 | P.HPOB ---
History of Present Illness H&P Date: 11/24/16 Chief Complaint: Family planning 21-year-old presents for laparoscopic tubal ligation. All risks, benefits , alternatives were discussed with the patient including that this is not a reversible procedure. Review of Systems All systems: negative Constitutional: Denies chills, Denies fever Eyes: denies blurred vision, denies pain Ears, nose, mouth and throat: Denies headache, Denies sore throat Cardiovascular: Denies chest pain, Denies shortness of breath Respiratory: Denies cough Gastrointestinal: Denies abdominal pain, Denies diarrhea, Denies nausea, Denies vomiting Genitourinary: Denies dysuria, Denies hematuria Musculoskeletal: Denies myalgias Integumentary: Denies pruritus, Denies rash Neurological: Denies numbness, Denies weakness Psychiatric: Denies anxiety, Denies depression Endocrine: Denies fatigue, Denies weight change Past Medical History Past Medical History: No Reported History Additional Past Medical History / Comment(s): Patient has had 4 spontaneous vaginal deliveries ranging from 8 lbs. 9 oz.-9 lbs. 6 oz. History of Any Multi-Drug Resistant Organisms: None Reported Past Surgical History: No Surgical Hx Reported Past Anesthesia/Blood Transfusion Reactions: No Reported Reaction Additional Past Anesthesia/Blood Transfusion Reaction / Comment(s): no hx of anesthesia other than epidurals for pain control during childbirth Past Psychological History: No Psychological Hx Reported Smoking Status: Current every day smoker Past Alcohol Use History: None Reported Additional Past Alcohol Use History / Comment(s): has smoked 6 years, 10 cigarettes/day Past Drug Use History: None Reported - Past Family History Brother(s) Additional Family Medical History / Comment(s): hemophilia Father Family Medical History: No Reported History Medications and Allergies Home Medications Medication Instructions Recorded Confirmed Type Acetaminophen Tab [Tylenol Tab] 650 mg PO DIRECTED PRN 03/07/16 11/21/16 History Allergies Allergy/AdvReac Type Severity Reaction Status Date / Time No Known Allergies Allergy Verified 11/21/16 08:20 Exam Osteopathic Statement: *. No significant issues noted on an osteopathic structural exam other than those noted in the History and Physical/Consult. Heart: Regular rate and rhythm Lungs: Clear to auscultation bilaterally Abdomen: Soft, nontender Extremities: Negative Homans sign Assessment and Plan (1) Family planning Status: Acute Plan: 1. Laparoscopic tubal ligation
[~2016-11-24 11:03] MED LIST: DEXAMETHASONE SOD PHOSPHATE 10 MG/ML 1 ML VIAL IV ONE; LACTATED RINGERS 1,000 ML IV SCH; LIDOCAINE 1% 20 ML VIAL (10MG/ML) FOR IV START INTRADERMA PRN; MIDAZOLAM 2 MG/2 ML VIAL IV PRN; Pre Op ABX Message 1 EACH MISC MISCELLANE ONE; SCOPOLAMINE 1.5MG/72HR PATCH TRANSDERM ONE
[2016-11-24] MEDS: ONDANSETRON 4 MG/2 ML VIAL IVP ONE ×2 (12:01→13:27)
[2016-11-24] MEDS ORDERED: KETOROLAC 30 MG/ML 1 ML VIAL ONE (12:27)
[2016-11-24] MEDS ORDERED: LIDOCAINE 1% INJ 10MG/ML (20 ML MDV) ONE (12:27)
[2016-11-24] MEDS ORDERED: NEOSTIGMINE 1 MG/ML 10 ML VIAL ONE (12:27)
[2016-11-24] MEDS ORDERED: PROPOFOL 10 MG/ML 20 ML VIAL IV ONE (12:27)
[2016-11-24] MEDS ORDERED: fentaNYL (PF) 50 MCG/ML 2 ML AMP ONE (12:27)
[2016-11-24] MEDS ORDERED: MIDAZOLAM 2 MG/2 ML VIAL ONE (12:27)
[2016-11-24] MEDS ORDERED: GLYCOPYRROLATE 0.2 MG/ML 2 ML VIAL ONE (12:27)
[2016-11-24] MEDS ORDERED: SUCCINYLCHOLINE CHLORIDE 100 MG/5 ML SYR IV ONE (12:27)
[2016-11-24] MEDS ORDERED: ROCURONIUM BROMIDE 10 MG/ML 10 ML VIAL IV ONE (12:27)
[2016-11-24] MEDS ORDERED: BUPIVACAINE (PF) 0.25% 30 ML VIAL SQ ONE ×2 (12:44)
--- NOTE | 2016-11-24 12:56 | P.OP ---
Date of Procedure: 11/24/16 Preoperative Diagnosis: 1. family planning Postoperative Diagnosis: 1. family planning Procedure(s) Performed: laparoscopic tubal ligation Implants: Anesthesia: BIJALA Surgeon: Glory Alejandro Estimated Blood Loss (ml): 5 IV fluids (ml): 400 Urine output (ml): 10 Pathology: none sent Condition: stable Disposition: PACU Indications for Procedure: Operative Findings: Uterus, tubes, ovaries Description of Procedure: Patient was taken to the operating room where general anesthesia was obtained without difficulty. She was prepped and draped in normal sterile fashion in the dorsal lithotomy position, legs placed in the Jake stirrups. Bladder drained of all urine. [place] speculum placed in the vagina and the anterior lip the cervix was grasped with single-tooth tenaculum. The uterus is sounded to 10 cm and the kroner manipulator was placed. Attention was then turned to the abdomen and gloves were changed. A 10 mm infraumbilical incision was made the scalpel and 10 mm optical trocar was placed under direct visualization. A 5 mm suprapubic Incision was made and a 5 mm optical trocar was placed under direct visualization. Survey of the pelvis revealed normal uterus tubes and ovaries. The left fallopian tube was grasped with a Kleppinger and fulgurated 2 -3 cm on this side in the ampullar portion. The right fallopian tube was grasped with a Kleppinger and fulgurated 2-3 cm in the ampullar portion. All instruments were then removed from the abdomen and vagina. The 10 mm infraumbilical incision was closed with 0 Vicryl and the fascial layer and then 4-0 Vicryl in a subcuticular fashion. The 5 mm incision was closed with 4-0 Vicryl in a subcuticular fashion. Patient tolerated procedure well, sponge and instrument counts correct 2 and she was taken to recovery room in stable condition.
[2016-11-24 13:10] VITALS: TEMP 97
[2016-11-24] MEDS: HYDROmorphone 1 MG/ML 1 ML SYRINGE IVP PRN ×4 (13:13→13:22)
[2016-11-24] MEDS: MEPERIDINE 50 MG/ML SYRINGE IVP ONE ×2 (13:27→13:37)
[2016-11-24] MEDS: fentaNYL (PF) 50 MCG/ML 2 ML AMP IV ONE ×2 (13:43→13:56)
[2016-11-24 15:01] VITALS: RESP 18
[2016-11-24 15:21] VITALS: BP 148/91; PULSE 59
== END 2016-11-24 15:58 | disposition home or self-care (01) ==
LOC: OR 11:03
PROVIDERS: ATTEND Obstetrics & Gynecology
DX: Z30.2 Encounter for sterilization (principal); F17.210 Nicotine dependence, cigarettes, uncomplicated; Z79.1 Long term (current) use of non-steroidal anti-inflammatories (NSAID)
CPT/HCPCS: 58670; 81025; J1100; J2175; J2405; J3010; J1170

== ENCOUNTER 2016-12-03 11:14 | Emergency (ER) | payer OTHER ==
[2016-12-03] MEDS ORDERED: KETOROLAC 30 MG/ML 1 ML VIAL IM STA (12:50)
[2016-12-03] MEDS ORDERED: MORPHINE SULFATE 4 MG/ML SYRINGE IM STA (12:50)
[2016-12-03] MEDS ORDERED: METHOCARBAMOL 500 MG TAB PO STA (12:50)
--- NOTE | 2016-12-03 12:54 | ED ---
Back Pain HPI - General Chief Complaint: Back Pain/Injury Stated Complaint: back pain Time Seen by Provider: 12/03/16 12:30 Source: patient Limitations: no limitations - History of Present Illness Initial Comments: Patient's a 21-year-old 2 months presenting with right flank pain. Patient states this started this morning and worse with movement. Right flank is better when she is completely still. Patient had tried Tylenol No. 3 and Motrin without relief. Last dosed at midnight. Patient denies trauma, saddle numbness, dysuria, hematuria, fever, chills. Patient has a 3-year-old and a 2- month-old she is taking care of now. - Related Data Previous Rx's Medication Instructions Recorded Acetaminophen-Codeine 300-30mg 2 tab PO Q6H PRN #30 tablet 11/24/16 [Tylenol #3] Ibuprofen [Motrin] 600 mg PO Q6HR PRN #30 tab 11/24/16 HYDROcodone/APAP 5-325MG [[place] 5] 1 each PO Q6HR PRN #12 tab 12/03/16 Ibuprofen [Motrin] 600 mg PO Q6H PRN #20 tab 12/03/16 Methocarbamol [Robaxin] 1,000 mg PO TID #21 tab 12/03/16 Allergies Allergy/AdvReac Type Severity Reaction Status Date / Time No Known Allergies Allergy Verified 12/03/16 12:28 Review of Systems ROS Statement: Those systems with pertinent positive or pertinent negative responses have been documented in the HPI. Constitutional: No fever and no chills. HENT: No congestion, no rhinorrhea and no sore throat. Eyes: No discharge and no redness. Respiratory: No cough and no shortness of breath. Cardiovascular: No chest pain and no palpitations. Gastrointestinal: No nausea, no vomiting, no abdominal pain and no diarrhea. Genitourinary: No dysuria and no hematuria. Musculoskeletal: +back pain and no arthralgias. Skin: No pallor and no rash. Neurological: No dizziness and No headaches. ROS Other: All systems not noted in ROS Statement are negative. Past Medical History Past Medical History: No Reported History Additional Past Medical History / Comment(s): Patient has had 3 spontaneous vaginal deliveries ranging from 8 lbs. 9 oz.-9 lbs. 6 oz. History of Any Multi-Drug Resistant Organisms: None Reported Past Surgical History: Tubal Ligation Past Anesthesia/Blood Transfusion Reactions: No Reported Reaction Additional Past Anesthesia/Blood Transfusion Reaction / Comment(s): n o hx. Past Psychological History: No Psychological Hx Reported Smoking Status: Current every day smoker Past Alcohol Use History: None Reported Past Drug Use History: None Reported - Past Family History Brother(s) Additional Family Medical History / Comment(s): hemophilia Father Family Medical History: No Reported History General Exam - General Exam Comments Initial Comments: Constitutional: Patient appears well-developed and well-nourished. No distress sitting still. Uncomfortable appearing with movement. Head: Normocephalic and atraumatic. Eyes: Conjunctivae and EOM are normal. Right eye exhibits no discharge. Left eye exhibits no discharge. No scleral icterus. Neck: Normal range of motion. Neck supple. Cardiovascular: Normal rate and regular rhythm. No murmur heard. Pulmonary/Chest: Effort normal and breath sounds normal. No respiratory distress. No wheezes. Abdominal: Soft. No distension. There is no tenderness. There is no rebound and no guarding. Musculoskeletal: Normal range of motion. Superficial muscular tenderness of right back. No midline tenderness. No CVA tenderness. Neurological: Patient alert and oriented to person, place, and time. Skin: Skin is warm and dry. Not diaphoretic. Nursing notes and vitals reviewed. Limitations: no limitations Course Vital Signs 12/03/16 12/03/16 11:34 15:14 Temperature 98.2 F 98.3 F Pulse Rate 74 62 Respiratory 20 18 Rate Blood Pressure 142/84 148/90 O2 Sat by Pulse 99 100 Oximetry - Reevaluation(s) Reevaluation #1: 12/03/16 15:53 Patient with mild improvement of symptoms after morphine, Toradol, Robaxin. Patient is not breast feeding. Lidocaine patch ordered. Medical Decision Making - Medical Decision Making Patient is a 21-year-old female presenting with right back myalgias. Physical exam reproduces back pain with light palpation of muscles. UA without concern for hematuria. No concern for trauma. Patient was given morphine, Toradol, Robaxin and lidocaine patch. She was educated to use heat. Patient was given prescription for home including [place], Robaxin and Motrin. Prior to discharge, patient was resting comfortably in bed. Course of stay improved and stable for outpatient management. Tolerable pain. Discussed physical exam and diagnostic tests with patient. Questions answered and patient is agreeable to discharge with close follow up with Primary Care Physician. Instructed to return to Emergency Department if symptoms worsen. - Lab Data Lab Results 12/03/16 Range/Units 13:14 Urine Color Yellow Urine Appearance Cloudy H (Clear) Urine pH 7.5 (5.0-8.0) Ur Specific [place] 1.018 (1.001-1.035) Urine Protein Trace H (Negative) Urine Glucose (UA) Negative (Negative) Urine Ketones Negative (Negative) Urine Blood Negative (Negative) Urine Nitrite Negative (Negative) Urine Bilirubin Negative (Negative) Urine Urobilinogen <2.0 (<2.0) mg/dL Ur Leukocyte Esterase Negative (Negative) Urine RBC <1 (0-5) /hpf Urine WBC 2 (0-5) /hpf Ur Squamous Epith Cells 11 H (0-4) /hpf Urine Mucus Rare H (None) /hpf Disposition Clinical Impression: Myalgia, Mechanical back pain Disposition: HOME SELF-CARE Condition: Good Instructions: Musculoskeletal Pain (ED) Prescriptions: HYDROcodone/APAP 5-325MG [[place] 5] 1 each PO Q6HR PRN #12 tab PRN Reason: Severe Pain Ibuprofen [Motrin] 600 mg PO Q6H PRN #20 tab PRN Reason: Pain Methocarbamol [Robaxin] 1,000 mg PO TID #21 tab Referrals: Anjel El MD [Primary Care Provider] - 1-2 days
[2016-12-03 13:27] LABS: Appearance,Urine Cloudy (Clear); Bilirubin,Urine Negative (Negative); Glucose,Urine (UA) Negative (Negative); Ketones,Urine Negative (Negative); Leukocyte Esterase,Urine Negative (Negative); Mucus,Urine Rare /hpf; Nitrite,Urine Negative (Negative); PH, Urine 7.5 (5.0-8.0); Particle Count 6139; Protein,Urine Trace (Negative); RBC,Urine <1 /hpf (0-5); Specific Gravity,Urine 1.018 (1.001-1.035); Squamous Epithelial Cell,Urine 11 /hpf (0-4); UA Billing (MACRO vs. MICRO) MICRO; Urobilinogen,Urine <2.0 mg/dL (<2.0); WBC,Urine 2 /hpf (0-5)
[2016-12-03] MEDS ORDERED: LIDOCAINE 5% PATCH TOPICAL STA (14:41)
[2016-12-03 15:15] VITALS: BP 148/90; PULSE 62; RESP 18; TEMP 98.3
== END 2016-12-03 15:15 | disposition home or self-care (01) ==
LOC: EC 11:14
DX: M79.1 Myalgia (principal); M54.9 Dorsalgia, unspecified; R10.9 Unspecified abdominal pain; F17.200 Nicotine dependence, unspecified, uncomplicated
CPT/HCPCS: 81001; 87086; 99283; 96372 ×2; J2270; J1885

== ENCOUNTER 2016-12-31 16:12 | Emergency (ER) | payer OTHER ==
--- NOTE | 2016-12-31 16:55 | XR ---
EXAMINATION TYPE: XR foot complete RT DATE OF EXAM: 12/31/2016 COMPARISON: NONE HISTORY: Pain TECHNIQUE: 3 views FINDINGS: I see no fracture nor dislocation. Joint spaces are normal. Metatarsals are intact. IMPRESSION: Normal right foot
--- NOTE | 2016-12-31 17:00 | ED ---
Lower Extremity Injury HPI - General Chief Complaint: Extremity Injury, Lower Stated Complaint: Right Foot Injury Time Seen by Provider: 12/31/16 16:17 Source: patient, RN notes reviewed Mode of arrival: ambulatory Limitations: no limitations - History of Present Illness Initial Comments: Patient is a 21-year-old female presents to the emergency room for evaluation of right ankle/foot pain. Patient states yesterday she twisted her ankle. Patient states when having pain in the lateral portion of her foot and ankle. Patient states having 10 out of 10 pain every time she walks. Patient denies taking anything for her symptoms. Patient states she has been icing and elevating her foot. Patient states she noticed swelling and bruising on the lateral side of her foot. Patient denies numbness or tingling in her toes. Patient denies any previous injuries to her ankle/foot. Patient denies any other injuries or complaints at this time. - Related Data Previous Rx's Medication Instructions Recorded Ibuprofen [Motrin] 600 mg PO Q6HR PRN #20 tab 12/31/16 Allergies Allergy/AdvReac Type Severity Reaction Status Date / Time No Known Allergies Allergy Verified 12/31/16 16:27 Review of Systems ROS Statement: Those systems with pertinent positive or pertinent negative responses have been documented in the HPI. ROS Other: All systems not noted in ROS Statement are negative. Past Medical History Past Medical History: No Reported History Additional Past Medical History / Comment(s): Patient has had 3 spontaneous vaginal deliveries ranging from 8 lbs. 9 oz.-9 lbs. 6 oz. History of Any Multi-Drug Resistant Organisms: None Reported Past Surgical History: Tubal Ligation Past Anesthesia/Blood Transfusion Reactions: No Reported Reaction Additional Past Anesthesia/Blood Transfusion Reaction / Comment(s): n o hx. Past Psychological History: No Psychological Hx Reported Smoking Status: Current every day smoker Past Alcohol Use History: None Reported Past Drug Use History: None Reported - Past Family History Brother(s) Additional Family Medical History / Comment(s): hemophilia Father Family Medical History: No Reported History General Exam - General Exam Comments Initial Comments: sitting in exam room, no acute distress. Limitations: no limitations General appearance: alert, in no apparent distress Head exam: Present: atraumatic, normocephalic, normal inspection Eye exam: Present: normal appearance ENT exam: Present: normal exam Neck exam: Present: normal inspection Respiratory exam: Present: normal lung sounds bilaterally. Absent: respiratory distress Cardiovascular Exam: Present: regular rate, normal rhythm, normal heart sounds Right Ankle exam: Present: full ROM, tenderness (lateral malleolus) Foot/Toe exam: Present: tenderness (tenderness on palpating over the distal and mid fifth metatarsal area) Neurovascular tendon exam: Present: no vascular compromise. Absent: pulse deficit (2+ dorsal pedal and posterior tibial pulses), abnormal cap refill ( capillary refill less than 2 seconds) Back exam: Present: normal inspection Neurological exam: Present: alert, oriented X3, CN II-XII intact Psychiatric exam: Present: normal affect, normal mood Skin exam: Present: warm, dry, intact, normal color. Absent: rash Course Vital Signs 12/31/16 16:15 Temperature 97.6 F Pulse Rate 93 Respiratory 20 Rate Blood Pressure 147/92 O2 Sat by Pulse 100 Oximetry Medical Decision Making - Medical Decision Making patient is a 18-year-old female presents emergency room for reevaluation of her ankle/foot pain. Ankle/foot x-ray is negative for any acute fractures or dislocations. Patient placed in an [place]yer wrap and ankle stirrup advised to follow -up with primary care provider symptoms are improving in 7-10 days. Patient states she understands everything that was discussed with her. Return parameters discussed. Case discussed Dr. Wall. - Radiology Data Radiology results: report reviewed, image reviewed Disposition Clinical Impression: Right ankle sprain Disposition: HOME SELF-CARE Condition: Good Instructions: Ankle Sprain (ED) Additional Instructions: Rest, elevate and ice on and off for 10-15 minutes for the next 24-48 hours. Take Tylenol or Motrin as needed for pain. Nonweightbearing for the next 1-2 days. Please follow-up with primary care provider if symptoms do not improve in 7-10 days. If new symptoms develop or symptoms worsen, please return to the ER. Prescriptions: Ibuprofen [Motrin] 600 mg PO Q6HR PRN #20 tab PRN Reason: Pain Referrals: Anjel El MD [Primary Care Provider] - 1-2 days Time of Disposition: 17:27
--- NOTE | 2016-12-31 17:23 | XR ---
EXAMINATION TYPE: XR ankle complete RT DATE OF EXAM: 12/31/2016 COMPARISON: NONE HISTORY: Pain TECHNIQUE: 3 views FINDINGS: Ankle mortise is anatomic. I see no fracture nor dislocation. Joint spaces are normal. IMPRESSION: No fracture.
[2016-12-31] MEDS ORDERED: IBUPROFEN 600 MG TAB PO STA (17:29)
[2016-12-31 18:05] VITALS: BP 136/86; PULSE 72; RESP 18; TEMP 97.8
== END 2016-12-31 18:05 | disposition home or self-care (01) ==
LOC: EC 16:12
DX: S93.401A Sprain of unspecified ligament of right ankle, initial encounter (principal); F17.200 Nicotine dependence, unspecified, uncomplicated; X50.0XXA Overexertion from strenuous movement or load, initial encounter
CPT/HCPCS: 99283; 73610; 73630; L4350

== ENCOUNTER 2017-01-26 09:13 | Emergency (ER) | payer OTHER ==
[2017-01-26] MEDS ORDERED: methylPREDNISolone SOD SUCCI 125 MG/2 ML VIAL IV STA (09:22)
[2017-01-26] MEDS ORDERED: FAMOTIDINE 20 MG/2 ML VIAL IV STA (09:22)
--- NOTE | 2017-01-26 09:31 | ED ---
General Adult HPI - General Chief complaint: Allergic Reaction Stated complaint: allergic reaction Time Seen by Provider: 01/26/17 09:19 Source: patient, RN notes reviewed Mode of arrival: ambulatory Limitations: no limitations - History of Present Illness Initial comments: Patient 21-year-old female who presents emergency room today with a chief complaint of ALLERGIC reaction. Patient does admit that symptoms started approximately an hour ago. She states she began having some swelling to her hands and face round. Lips. She states she drank a bottle of half bottle of liquid Benadryl. Does admit that symptoms have improved. States still feeling some itching and scratching-type symptoms. She denies any other complaints or symptoms at this time. Patient denies any recent fever, chills, shortness of breath, chest pain, back pain, abdominal pain, nausea or vomiting, numbness or tingling, dysuria or hematuria, constipation or diarrhea, headaches or visual changes, or any other complaints. - Related Data Previous Rx's Medication Instructions Recorded predniSONE 50 mg PO DAILY #5 tab 01/26/17 Allergies Allergy/AdvReac Type Severity Reaction Status Date / Time No Known Allergies Allergy Verified 01/26/17 09:30 Review of Systems ROS Statement: Those systems with pertinent positive or pertinent negative responses have been documented in the HPI. ROS Other: All systems not noted in ROS Statement are negative. Past Medical History Past Medical History: No Reported History Additional Past Medical History / Comment(s): Patient has had 3 spontaneous vaginal deliveries ranging from 8 lbs. 9 oz.-9 lbs. 6 oz. History of Any Multi-Drug Resistant Organisms: None Reported Past Surgical History: Tubal Ligation Past Anesthesia/Blood Transfusion Reactions: No Reported Reaction Additional Past Anesthesia/Blood Transfusion Reaction / Comment(s): n o hx. Past Psychological History: No Psychological Hx Reported Smoking Status: Current every day smoker Past Alcohol Use History: None Reported Past Drug Use History: None Reported - Past Family History Brother(s) Additional Family Medical History / Comment(s): hemophilia Father Family Medical History: No Reported History General Exam - General Exam Comments Initial Comments: General: The patient is awake and alert, in no distress, and does not appear acutely ill. Eye: Pupils are equal, round and reactive to light, extra-ocular movements are intact. No nystagmus. There is normal conjunctiva bilaterally. No signs of icterus. Ears, nose, mouth and throat: There are moist mucous membranes and no oral lesions. Neck: The neck is supple, there is no tenderness or JVD. Cardiovascular: There is a regular rate and rhythm. No murmur, rub or gallop is appreciated. Respiratory: Lungs are clear to auscultation, respirations are non-labored, breath sounds are equal. No wheezes, stridor, rales, or rhonchi. Musculoskeletal: Normal ROM, no tenderness. Strength 5/5. Sensation intact. Pulses equal bilaterally 2+. Neurological: A&O x 3. CN II-XII intact, There are no obvious motor or sensory deficits. Coordination appears grossly intact. Speech is normal. Skin: Skin is warm and dry and no rashes or lesions are noted. Psychiatric: Cooperative, appropriate mood & affect, normal judgment. Limitations: no limitations Course Vital Signs 01/26/17 09:15 Temperature 98.5 F Pulse Rate 65 Respiratory 18 Rate Blood Pressure 153/87 O2 Sat by Pulse 100 Oximetry Medical Decision Making - Medical Decision Making Patient reexamined at this time shows no signs of distress. Does admit to feeling better. She was given IV Pepcid and steroids here in the emergency room. Patient took Benadryl prior to arrival. At this time vital signs stable. Patient doing well. Will be discharged home advised continue Benadryl one to 2 tabs every 6 hours. Advised to use steroids if any symptoms return. respiratory the emergency room for any other concerns. Disposition Clinical Impression: Allergic reaction Disposition: HOME SELF-CARE Condition: Good Instructions: Urticaria (ED) Additional Instructions: Please use Benadryl one to 2 tabs every 6 hours as discussed. Please use steroids as prescribed. Please return to emergency room if any symptoms increase or worsen or for any other concerns. Prescriptions: predniSONE 50 mg PO DAILY #5 tab Referrals: Anjel El MD [Primary Care Provider] - 1-2 days Time of Disposition: 10:22
[2017-01-26 10:30] VITALS: BP 129/87; PULSE 56; RESP 16; TEMP 98.1
== END 2017-01-26 10:32 | disposition home or self-care (01) ==
LOC: EC 09:13
DX: T78.40XA Allergy, unspecified, initial encounter (principal); F17.200 Nicotine dependence, unspecified, uncomplicated
CPT/HCPCS: 99283; 96374; 96375; J2930

== ENCOUNTER 2017-07-18 11:26 | Emergency (ER) | payer OTHER ==
[2017-07-18 11:57] VITALS: PULSE 78
[2017-07-18] MEDS ORDERED: ACETAMINOPHEN IV (For NPO) 1,000 MG in EMPTY BAG 1 BAG IVPB STA (12:37)
--- NOTE | 2017-07-18 12:39 | ED ---
General Adult HPI - General Chief complaint: Abdominal Pain Stated complaint: Right side pain Time Seen by Provider: 07/18/17 12:32 Source: patient, RN notes reviewed Mode of arrival: ambulatory Limitations: no limitations - History of Present Illness Initial comments: Patient 21-year-old female who presents emergency room today with chief complaint of abdominal pain that started yesterday. She does admit that she began feeling some pain in the right side and lower abdomen last night. She does describe pain as being sharp at times it's worse with certain movements. Patient denies any other associated symptoms or complaints. Denies any similar symptoms in the past. Patient denies any recent fever, chills, shortness of breath, chest pain, back pain, nausea or vomiting, numbness or tingling, dysuria or hematuria, constipation or diarrhea, headaches or visual changes, or any other complaints. - Related Data Previous Rx's Medication Instructions Recorded Ibuprofen [Motrin] 600 mg PO Q6HR PRN #40 day 07/18/17 traMADol HCl [Ultram] 50 mg PO Q6H PRN #15 tab 07/18/17 Allergies Allergy/AdvReac Type Severity Reaction Status Date / Time No Known Allergies Allergy Verified 07/18/17 13:10 Review of Systems ROS Statement: Those systems with pertinent positive or pertinent negative responses have been documented in the HPI. ROS Other: All systems not noted in ROS Statement are negative. Past Medical History Past Medical History: No Reported History Additional Past Medical History / Comment(s): Patient has had 4 spontaneous vaginal deliveries ranging from 8 lbs. 9 oz.-9 lbs. 6 oz. History of Any Multi-Drug Resistant Organisms: None Reported Past Surgical History: Tubal Ligation Past Anesthesia/Blood Transfusion Reactions: No Reported Reaction Additional Past Anesthesia/Blood Transfusion Reaction / Comment(s): n o hx. Past Psychological History: No Psychological Hx Reported Smoking Status: Current every day smoker Past Alcohol Use History: None Reported Past Drug Use History: None Reported - Past Family History Brother(s) Additional Family Medical History / Comment(s): hemophilia Father Family Medical History: No Reported History General Exam - General Exam Comments Initial Comments: General: The patient is awake and alert, in no distress, and does not appear acutely ill. Eye: Pupils are equal, round and reactive to light, extra-ocular movements are intact. No nystagmus. There is normal conjunctiva bilaterally. No signs of icterus. Ears, nose, mouth and throat: There are moist mucous membranes and no oral lesions. Neck: The neck is supple, there is no tenderness or JVD. Cardiovascular: There is a regular rate and rhythm. No murmur, rub or gallop is appreciated. Respiratory: Lungs are clear to auscultation, respirations are non-labored, breath sounds are equal. No wheezes, stridor, rales, or rhonchi. Gastrointestinal: Soft, non-distended. Mild tenderness right lower quadrant. There is no rebound or guarding present. No CVA tenderness. Bowel sounds are unremarkable. Musculoskeletal: Normal ROM, no tenderness. Strength 5/5. Sensation intact. Pulses equal bilaterally 2+. Neurological: A&O x 3. CN II-XII intact, There are no obvious motor or sensory deficits. Coordination appears grossly intact. Speech is normal. Skin: Skin is warm and dry and no rashes or lesions are noted. Psychiatric: Cooperative, appropriate mood & affect, normal judgment. Limitations: no limitations Course Vital Signs 07/18/17 11:54 Temperature 98.2 F Pulse Rate 78 Respiratory 18 Rate Blood Pressure 122/72 O2 Sat by Pulse 100 Oximetry Medical Decision Making - Medical Decision Making Case discussed in detail with attending physician Dr. Blackwood. Patient reexamined at this time shows no signs of distress resting comfortably. Patient did well at this time. Labs been reviewed and are unremarkable. Negative Yohana test. No elevated white count. No fever. Vital stable. Patient's CT abdomen pelvis reviewed show no evidence of appendicitis. Does show possible small right-sided tiny calculus. Patient will be discharged home with a short prescription for pain medication. Otherwise follow-up the family doctor tomorrow. Advised return here to the emergency room symptoms increase or worsen or for new concerns. Patient states her stated and is in agreement. - Lab Data Result diagrams: 07/18/17 12:45 07/18/17 12:45 Lab Results 07/18/17 07/18/17 07/18/17 Range/Units 12:45 12:45 12:45 WBC 7.9 (3.8-10.6) k/uL RBC 4.60 (3.80-5.40) m/uL Hgb 14.0 (11.4-16.0) gm/dL Hct 42.6 (34.0-46.0) % MCV 92.6 (80.0-100.0) fL MCH 30.3 (25.0-35.0) pg MCHC 32.8 (31.0-37.0) g/dL RDW 12.9 (11.5-15.5) % Plt Count 183 (150-450) k/uL Neutrophils % 76 % Lymphocytes % 17 % Monocytes % 4 % Eosinophils % 1 % Basophils % 0 % Neutrophils # 6.0 (1.3-7.7) k/uL Lymphocytes # 1.3 (1.0-4.8) k/uL Monocytes # 0.3 (0-1.0) k/uL Eosinophils # 0.1 (0-0.7) k/uL Basophils # 0.0 (0-0.2) k/uL Sodium 145 (137-145) mmol/L Potassium 4.8 (3.5-5.1) mmol/L Chloride 106 (98-107) mmol/L Carbon Dioxide 26 (22-30) mmol/L Anion Gap 13 mmol/L BUN 14 (7-17) mg/dL Creatinine 0.90 (0.52-1.04) mg/dL Est GFR (MDRD) Af Amer >60 (>60 ml/min/1.73 sqM) Est GFR (MDRD) Non-Af >60 (>60 ml/min/1.73 sqM) Glucose 76 (74-99) mg/dL Plasma Lactic Acid Bob (0.7-2.0) mmol/L Calcium 10.2 (8.4-10.2) mg/dL Total Bilirubin 0.5 (0.2-1.3) mg/dL AST 20 (14-36) U/L ALT 25 (9-52) U/L Alkaline Phosphatase 67 (38-126) U/L Total Protein 7.8 (6.3-8.2) g/dL Albumin 4.7 (3.5-5.0) g/dL Amylase 47 (30-110) U/L Lipase 63 (23-300) U/L Urine Color Urine Appearance (Clear) Urine pH (5.0-8.0) Ur Specific [place] (1.001-1.035) Urine Protein (Negative) Urine Glucose (UA) (Negative) Urine Ketones (Negative) Urine Blood (Negative) Urine Nitrite (Negative) Urine Bilirubin (Negative) Urine Urobilinogen (<2.0) mg/dL Ur Leukocyte Esterase (Negative) Ur Squamous Epith Cells (0-4) /hpf Amorphous Sediment (None) /hpf Urine Mucus (None) /hpf Urine HCG, Qual Not Detected (Not Detectd) 07/18/17 07/18/17 Range/Units 12:45 12:45 WBC (3.8-10.6) k/uL RBC (3.80-5.40) m/uL Hgb (11.4-16.0) gm/dL Hct (34.0-46.0) % MCV (80.0-100.0) fL MCH (25.0-35.0) pg MCHC (31.0-37.0) g/dL RDW (11.5-15.5) % Plt Count (150-450) k/uL Neutrophils % % Lymphocytes % % Monocytes % % Eosinophils % % Basophils % % Neutrophils # (1.3-7.7) k/uL Lymphocytes # (1.0-4.8) k/uL Monocytes # (0-1.0) k/uL Eosinophils # (0-0.7) k/uL Basophils # (0-0.2) k/uL Sodium (137-145) mmol/L Potassium (3.5-5.1) mmol/L Chloride (98-107) mmol/L Carbon Dioxide (22-30) mmol/L Anion Gap mmol/L BUN (7-17) mg/dL Creatinine (0.52-1.04) mg/dL Est GFR (MDRD) Af Amer (>60 ml/min/1.73 sqM) Est GFR (MDRD) Non-Af (>60 ml/min/1.73 sqM) Glucose (74-99) mg/dL Plasma Lactic Acid Bob 1.1 (0.7-2.0) mmol/L Calcium (8.4-10.2) mg/dL Total Bilirubin (0.2-1.3) mg/dL AST (14-36) U/L ALT (9-52) U/L Alkaline Phosphatase (38-126) U/L Total Protein (6.3-8.2) g/dL Albumin (3.5-5.0) g/dL Amylase (30-110) U/L Lipase (23-300) U/L Urine Color Yellow Urine Appearance Turbid H (Clear) Urine pH 8.0 (5.0-8.0) Ur Specific [place] 1.022 (1.001-1.035) Urine Protein Trace H (Negative) Urine Glucose (UA) Negative (Negative) Urine Ketones Negative (Negative) Urine Blood Negative (Negative) Urine Nitrite Negative (Negative) Urine Bilirubin Negative (Negative) Urine Urobilinogen <2.0 (<2.0) mg/dL Ur Leukocyte Esterase Small H (Negative) Ur Squamous Epith Cells 18 H (0-4) /hpf Amorphous Sediment Rare H (None) /hpf Urine Mucus Rare H (None) /hpf Urine HCG, Qual (Not Detectd) Disposition Clinical Impression: Abdominal pain Disposition: HOME SELF-CARE Condition: Good Instructions: Abdominal Pain (ED) Additional Instructions: Please use medication as discussed. Please follow-up with family doctor in the next 1-2 days. Please return to emergency room if the symptoms increase or worsen or for any other concerns. Prescriptions: Ibuprofen [Motrin] 600 mg PO Q6HR PRN #40 day PRN Reason: Pain traMADol HCl [Ultram] 50 mg PO Q6H PRN #15 tab PRN Reason: Pain Referrals: Anjel El MD [Primary Care Provider] - 1-2 days Time of Disposition: 15:28
--- NOTE | 2017-07-18 13:36 | XR ---
EXAMINATION TYPE: XR KUB DATE OF EXAM: 07/18/2017 1:12 PM CLINICAL HISTORY: Right lower quadrant pain TECHNIQUE: Two Upright KUB images of the abdomen are obtained. COMPARISON: Abdominal x-ray and CT abdomen and pelvis January 25, 2010 FINDINGS: Scattered gas is seen in non-distended stomach and small bowel loops. Gas and fecal materia l is seen in non-distended colon. There is no pneumoperitoneum or suspicious calcification appreciate d. The lung bases are clear and the osseous structures are intact. IMPRESSION: Overall nonobstructive bowel gas pattern.
[2017-07-18 13:45] LABS: Basophils % (A) 0 %; Eosinophils # (A) 0.1 k/uL (0-0.7); Eosinophils % (A) 1 %; HCT 42.6 % (34.0-46.0); Lymphocytes # (A) 1.3 k/uL (1.0-4.8); Lymphocytes % (A) 17 %; MCH 30.3 pg (25.0-35.0); MCHC 32.8 g/dL (31.0-37.0); MCV 92.6 fL (80.0-100.0); Mean Platelet Volume 8.2; Monocytes # (A) 0.3 k/uL (0-1.0); Monocytes % (A) 4 %; Neutrophils % (A) 76 %; Platelet Count 183 k/uL (150-450); RDW 12.9 % (11.5-15.5); WBC 7.9 k/uL (3.8-10.6)
[2017-07-18 13:51] LABS: Amorphous Sediment,Urine Rare /hpf; Appearance,Urine Turbid (Clear); Bilirubin,Urine Negative (Negative); Blood,Urine Negative (Negative); Color,Urine Yellow; Glucose,Urine (UA) Negative (Negative); Ketones,Urine Negative (Negative); Leukocyte Esterase,Urine Small (Negative); Mucus,Urine Rare /hpf; Nitrite,Urine Negative (Negative); Protein,Urine Trace (Negative); Specific Gravity,Urine 1.022 (1.001-1.035); Squamous Epithelial Cell,Urine 18 /hpf (0-4); Urobilinogen,Urine <2.0 mg/dL (<2.0)
[2017-07-18 13:56] LABS: Albumin 4.7 g/dL (3.5-5.0); Amylase 47 U/L (30-110); Anion Gap 13 mmol/L; Calcium 10.2 mg/dL (8.4-10.2); Carbon Dioxide 26 mmol/L (22-30); Chloride 106 mmol/L (98-107); Glucose 76 mg/dL (74-99); Lipase 63 U/L (23-300); Sodium 145 mmol/L (137-145); Total Bilirubin 0.5 mg/dL (0.2-1.3); Total Protein 7.8 g/dL (6.3-8.2)
[2017-07-18 13:57] LABS: ALT 25 U/L (9-52); AST 20 U/L (14-36); Alkaline Phosphatase 67 U/L (38-126); Blood Urea Nitrogen 14 mg/dL (7-17); Potassium 4.8 mmol/L (3.5-5.1)
[2017-07-18] MEDS ORDERED: RX INFO: IV CONTRAST WAS GIVEN 1 EACH MISC MISCELLANE PRN (13:57)
[2017-07-18] MEDS ORDERED: ONDANSETRON 4 MG/2 ML VIAL IVP STA (13:57)
[2017-07-18] MEDS ORDERED: HYDROmorphone 2 MG/ML 1 ML SYRINGE IVP STA (13:58)
--- NOTE | 2017-07-18 15:04 | CT ---
EXAMINATION TYPE: CT abdomen pelvis w con DATE OF EXAM: 07/18/2017 HISTORY: RLQ pain since yesterday. CT DLP: 1008mGycm Automated Exposure Control for Dose Reduction was Utilized. CONTRAST: CT scan of the abdomen and pelvis is performed without oral but with IV Contrast, patient injected wi th 100ml mL of Omnipaque 300. COMPARISON: CT abdomen pelvis January 25, 2010. FINDINGS: LUNG BASES: No significant abnormality is appreciated. LIVER/GB: No significant abnormality is appreciated. PANCREAS: No significant abnormality is seen. SPLEEN: There is 1.3 cm splenule in the splenic hilum axial image 23. ADRENALS: No significant abnormality is seen. KIDNEYS: There is 2 mm calculus lower pole level left kidney seen on axial image 35. BOWEL: Evaluation bowel is slightly suboptimal as patient has very little intra-abdominal fat and due to lack of enteric contrast. There is no suspicious small or large bowel dilatation identified. Ther e is low lying cecum into the right pelvis. Appendix is not definitively seen with certainty but I peralta spect there is portions of normal-appearing appendix in the right pelvis is noted on coronal images 2 6 through 33. No suspicious dilatation or inflammatory changes seen. No inflammatory change at base o f cecum is noted. Terminal ileum is not well visualized. UTERUS/ADNEXA: There is retroverted uterus seen. There is tiny amount of free fluid in pelvic cul-de- sac right of midline axial image 71. There is 1.2 cm rounded low dense lesion right adnexa or ovary l ikely reflecting prominent follicle axial image 73. There are pelvic phleboliths bilaterally noted. I ncreased in number from prior. LYMPH NODES: No greater than 1cm abdominal or pelvic lymph nodes are appreciated. OSSEOUS STRUCTURES: Small posterior disc herniations L3-L4 and L4-L5 levels are noted on sagittal tamar ge 32 confirmed on axial images 43 and more prominent on axial image 50. OTHER: No significant additional abnormality is seen. IMPRESSION: No convincing CT evidence for acute appendicitis as detailed above. There is 2 mm left re nal nonobstructing calculus noted. Rounded densities in pelvis favor bilateral pelvic phleboliths as there is symmetric excretion from both kidneys without hydronephrosis. Cannot entirely exclude nonobs tructing small distal ureter calculus, correlate with urine lab values and clinically.
[2017-07-18 15:43] VITALS: BP 118/80; RESP 17; TEMP 98.3
== END 2017-07-18 15:42 | disposition home or self-care (01) ==
LOC: EC 11:26
DX: R10.31 Right lower quadrant pain (principal); F17.200 Nicotine dependence, unspecified, uncomplicated; Z98.51 Tubal ligation status
CPT/HCPCS: 36415; 80053; 82150; 83605; 83690; 85025; 81001; 81025; 74018; 74177; 99284; 96365; 96375 ×2; J1170; J2405; Q9967; J0131

== ENCOUNTER 2017-08-14 08:18 | Emergency (ER) | payer OTHER ==
[2017-08-14 08:32] VITALS: BP 142/93; PULSE 83; RESP 18; TEMP 97.5
[2017-08-14] MEDS ORDERED: HYDROcodone/APAP 5-325MG 1 EACH TAB PO STA (08:44)
[2017-08-14] MEDS ORDERED: PENICILLIN V POTASSIUM 250 MG TAB PO STA (08:46)
--- NOTE | 2017-08-14 08:49 | ED ---
General Adult HPI - General Chief complaint: Dental/Oral Stated complaint: Dental pain Time Seen by Provider: 08/14/17 08:34 Source: patient, RN notes reviewed Mode of arrival: ambulatory Limitations: no limitations - History of Present Illness Initial comments: 21-year-old female presents emergency Department with chief complaint of dental pain. She states that she woke up with pain on the right upper side. She has a known broken tooth but states it's ever bother her up until today. She's tried some hoqj-oht-hummacm benzocaine with no relief. Patient denies fever, chills, headache, dizziness, difficulty swallowing or any neck discomfort. Patient states that she has not seen a dentist recently. - Related Data Previous Rx's Medication Instructions Recorded Ibuprofen [Motrin] 600 mg PO Q6HR PRN #40 day 07/18/17 traMADol HCl [Ultram] 50 mg PO Q6H PRN #15 tab 07/18/17 Hydrocodone/Acetaminophen [[place] 1 tab PO Q6HR PRN #15 tab 08/14/17 5-325] Penicillin V Potassium [Pen Vee K] 500 mg PO QID #40 tablet 08/14/17 Allergies Allergy/AdvReac Type Severity Reaction Status Date / Time No Known Allergies Allergy Verified 08/14/17 08:32 Review of Systems ROS Statement: Those systems with pertinent positive or pertinent negative responses have been documented in the HPI. ROS Other: All systems not noted in ROS Statement are negative. Past Medical History Past Medical History: No Reported History Additional Past Medical History / Comment(s): Patient has had 4 spontaneous vaginal deliveries ranging from 8 lbs. 9 oz.-9 lbs. 6 oz. History of Any Multi-Drug Resistant Organisms: None Reported Past Surgical History: Tubal Ligation Past Anesthesia/Blood Transfusion Reactions: No Reported Reaction Additional Past Anesthesia/Blood Transfusion Reaction / Comment(s): n o hx. Past Psychological History: No Psychological Hx Reported Smoking Status: Current every day smoker Past Alcohol Use History: None Reported Past Drug Use History: None Reported - Past Family History Brother(s) Additional Family Medical History / Comment(s): hemophilia Father Family Medical History: No Reported History General Exam Limitations: no limitations General appearance: alert, in no apparent distress Head exam: Present: atraumatic, normocephalic, normal inspection Eye exam: Present: normal appearance, PERRL, EOMI. Absent: scleral icterus, conjunctival injection, periorbital swelling ENT exam: Present: mucous membranes moist, TM's normal bilaterally, normal external ear exam. Absent: normal oropharynx (Dental fracture #16 no drainable abscess minimal erythema) Neck exam: Present: normal inspection, full ROM. Absent: tenderness, meningismus, lymphadenopathy Respiratory exam: Present: normal lung sounds bilaterally. Absent: respiratory distress, wheezes, rales, rhonchi, stridor Cardiovascular Exam: Present: regular rate, normal rhythm, normal heart sounds. Absent: systolic murmur, diastolic murmur, rubs, gallop, clicks Course Vital Signs 08/14/17 08:29 Temperature 97.5 F L Pulse Rate 83 Respiratory 18 Rate Blood Pressure 142/93 O2 Sat by Pulse 100 Oximetry Medical Decision Making - Medical Decision Making 21-year-old female presented emergency department for right upper dental pain. Patient has a dental fracture of she'll be given antibiotics for suspected infection. She is advised to follow-up with dental clinic, personal tenderness or oral surgeon. Disposition Clinical Impression: Fracture of tooth, Pain, dental Disposition: HOME SELF-CARE Condition: Stable Instructions: Dental Caries (ED) Additional Instructions: Please return to the Emergency Department if symptoms worsen or any other concerns. Prescriptions: Hydrocodone/Acetaminophen [[place]iler 5-325] 1 tab PO Q6HR PRN #15 tab PRN Reason: Pain Penicillin V Potassium [Pen Vee K] 500 mg PO QID #40 tablet Referrals: Adalberto Ruano DO [Primary Care Provider] - 1-2 days Time of Disposition: 08:48
== END 2017-08-14 09:03 | disposition home or self-care (01) ==
LOC: EC 08:18
DX: S02.5XXA Fracture of tooth (traumatic), initial encounter for closed fracture (principal); F17.200 Nicotine dependence, unspecified, uncomplicated; X58.XXXA Exposure to other specified factors, initial encounter
CPT/HCPCS: 99282

== ENCOUNTER 2017-11-22 11:20 | Emergency (ER) | payer OTHER ==
[2017-11-22] MEDS ORDERED: KETOROLAC 30 MG/ML 1 ML VIAL IVP STA (12:14)
--- NOTE | 2017-11-22 12:19 | ED ---
Abdominal Pain HPI - General Chief Complaint: Abdominal Pain Stated Complaint: left side pain Time Seen by Provider: 11/22/17 11:59 Source: patient Mode of arrival: ambulatory Limitations: no limitations - History of Present Illness Initial Comments: This is a 22-year-old female who presents emergent department for left-sided abdominal pain. She states it started this morning. She describes it as a sharp sensation that is worse with movement. She states is located in her left upper quadrant and radiates around to her left flank area and she has no associated nausea, vomiting, or diarrhea. No dysuria hematuria. No vaginal bleeding or discharge. No fevers or chills. No soreness of breath or cough. She states that she has not been overexerting herself over the last few days. He has not had anything like this previously. No other acute complaints. - Related Data Home Medications Medication Instructions Recorded Confirmed Clindamycin [Cleocin] 150 mg PO TID 11/22/17 11/22/17 HYDROcodone/APAP 5-325MG [[place] 1 tab PO TID PRN 11/22/17 11/22/17 5-325] Ibuprofen [Motrin] 800 mg PO Q6H PRN 11/22/17 11/22/17 Previous Rx's Medication Instructions Recorded Sulfamethox-Tmp 800-160Mg [Bactrim 1 tab PO Q12HR 10 Days #20 tab 11/22/17 DS 800-160 mg] Allergies Allergy/AdvReac Type Severity Reaction Status Date / Time No Known Allergies Allergy Verified 11/22/17 11:59 Review of Systems ROS Statement: Those systems with pertinent positive or pertinent negative responses have been documented in the HPI. ROS Other: All systems not noted in ROS Statement are negative. Past Medical History Past Medical History: No Reported History Additional Past Medical History / Comment(s): Patient has had 4 spontaneous vaginal deliveries ranging from 8 lbs. 9 oz.-9 lbs. 6 oz. History of Any Multi-Drug Resistant Organisms: None Reported Past Surgical History: Tubal Ligation Past Anesthesia/Blood Transfusion Reactions: No Reported Reaction Additional Past Anesthesia/Blood Transfusion Reaction / Comment(s): n o hx. Past Psychological History: No Psychological Hx Reported Smoking Status: Current every day smoker Past Alcohol Use History: None Reported Past Drug Use History: None Reported - Past Family History Brother(s) Additional Family Medical History / Comment(s): hemophilia Father Family Medical History: No Reported History General Exam - General Exam Comments Initial Comments: Constitutional: Awake alert Appears comfortable Head: Normocephalic atraumatic Eyes: no conjunctival injection No scleral icterus EOMI Neck: No JVD Supple Heart: Regular rate rhythm normal S1-S2 no murmurs Lungs: Clear to auscultation bilaterally No wheezing No rales Abdomen: Soft nondistended to palpation along the left costal margin, no rebound or guarding, there is tenderness to palpation along the left 10th rib in the left flank Extremities: Non edematous DP pulses intact Radial pulses intact Neuro: A&Ox3 No focal neurologic deficits Psych: Appropriate mood and affect Limitations: no limitations Course Vital Signs 11/22/17 11/22/17 11/22/17 11:24 12:29 13:28 Temperature 98.4 F 97.8 F Pulse Rate 90 65 78 Respiratory 16 18 16 Rate Blood Pressure 152/92 133/60 128/70 O2 Sat by Pulse 100 99 99 Oximetry Medical Decision Making - Medical Decision Making This is a 22-year-old female who came in for left-sided abdominal pain and flank pain. UA did show what appears to be a urinary tract infection. There is concern for possible pyelonephritis however labwork was unremarkable. The patient is afebrile. I do not feel that she needs IV antibiotics at this point. I'm going to start her on Bactrim twice a day for 10 days. Told to follow up closely with her primary doctor. Return if she has any worsening pain or develops fevers, chills, or any worsening symptoms or questions answered. - Lab Data Result diagrams: 11/22/17 12:26 11/22/17 12:26 Lab Results 11/22/17 11/22/17 11/22/17 Range/Units 12:26 12:26 12:26 WBC 10.1 (3.8-10.6) k/uL RBC 4.12 (3.80-5.40) m/uL Hgb 11.6 (11.4-16.0) gm/dL Hct 35.9 (34.0-46.0) % MCV 87.2 (80.0-100.0) fL MCH 28.3 (25.0-35.0) pg MCHC 32.5 (31.0-37.0) g/dL RDW 15.6 H (11.5-15.5) % Plt Count 183 (150-450) k/uL Neutrophils % 78 % Lymphocytes % 14 % Monocytes % 6 % Eosinophils % 1 % Basophils % 0 % Neutrophils # 7.9 H (1.3-7.7) k/uL Lymphocytes # 1.4 (1.0-4.8) k/uL Monocytes # 0.6 (0-1.0) k/uL Eosinophils # 0.1 (0-0.7) k/uL Basophils # 0.0 (0-0.2) k/uL Sodium 144 (137-145) mmol/L Potassium 3.9 (3.5-5.1) mmol/L Chloride 106 (98-107) mmol/L Carbon Dioxide 26 (22-30) mmol/L Anion Gap 12 mmol/L BUN 16 (7-17) mg/dL Creatinine 0.65 (0.52-1.04) mg/dL Est GFR (CKD-EPI)AfAm >90 (>60 ml/min/1.73 sqM) Est GFR (CKD-EPI)NonAf >90 (>60 ml/min/1.73 sqM) Glucose 81 (74-99) mg/dL Calcium 9.5 (8.4-10.2) mg/dL Total Bilirubin 0.4 (0.2-1.3) mg/dL AST 15 (14-36) U/L ALT 30 (9-52) U/L Alkaline Phosphatase 73 (38-126) U/L Total Protein 6.9 (6.3-8.2) g/dL Albumin 4.4 (3.5-5.0) g/dL Urine Color Urine Appearance (Clear) Urine pH (5.0-8.0) Ur Specific [place] (1.001-1.035) Urine Protein (Negative) Urine Glucose (UA) (Negative) Urine Ketones (Negative) Urine Blood (Negative) Urine Nitrite (Negative) Urine Bilirubin (Negative) Urine Urobilinogen (<2.0) mg/dL Ur Leukocyte Esterase (Negative) Urine RBC (0-5) /hpf Urine WBC (0-5) /hpf Urine WBC Clumps (None) /hpf Ur Squamous Epith Cells (0-4) /hpf Urine Bacteria (None) /hpf Urine Mucus (None) /hpf Urine HCG, Qual Not Detected (Not Detectd) 11/22/17 Range/Units 12:26 WBC (3.8-10.6) k/uL RBC (3.80-5.40) m/uL Hgb (11.4-16.0) gm/dL Hct (34.0-46.0) % MCV (80.0-100.0) fL MCH (25.0-35.0) pg MCHC (31.0-37.0) g/dL RDW (11.5-15.5) % Plt Count (150-450) k/uL Neutrophils % % Lymphocytes % % Monocytes % % Eosinophils % % Basophils % % Neutrophils # (1.3-7.7) k/uL Lymphocytes # (1.0-4.8) k/uL Monocytes # (0-1.0) k/uL Eosinophils # (0-0.7) k/uL Basophils # (0-0.2) k/uL Sodium (137-145) mmol/L Potassium (3.5-5.1) mmol/L Chloride (98-107) mmol/L Carbon Dioxide (22-30) mmol/L Anion Gap mmol/L BUN (7-17) mg/dL Creatinine (0.52-1.04) mg/dL Est GFR (CKD-EPI)AfAm (>60 ml/min/1.73 sqM) Est GFR (CKD-EPI)NonAf (>60 ml/min/1.73 sqM) Glucose (74-99) mg/dL Calcium (8.4-10.2) mg/dL Total Bilirubin (0.2-1.3) mg/dL AST (14-36) U/L ALT (9-52) U/L Alkaline Phosphatase (38-126) U/L Total Protein (6.3-8.2) g/dL Albumin (3.5-5.0) g/dL Urine Color Yellow Urine Appearance Cloudy H (Clear) Urine pH 6.5 (5.0-8.0) Ur Specific [place] 1.017 (1.001-1.035) Urine Protein 1+ H (Negative) Urine Glucose (UA) Negative (Negative) Urine Ketones Negative (Negative) Urine Blood Small H (Negative) Urine Nitrite Positive H (Negative) Urine Bilirubin Negative (Negative) Urine Urobilinogen <2.0 (<2.0) mg/dL Ur Leukocyte Esterase Large H (Negative) Urine RBC 11 H (0-5) /hpf Urine WBC 150 H (0-5) /hpf Urine WBC Clumps Occasional H (None) /hpf Ur Squamous Epith Cells 3 (0-4) /hpf Urine Bacteria Occasional H (None) /hpf Urine Mucus Few H (None) /hpf Urine HCG, Qual (Not Detectd) Disposition Clinical Impression: UTI (urinary tract infection) Disposition: HOME SELF-CARE Condition: Stable Instructions: Urinary Tract Infection in Women (ED) Prescriptions: Sulfamethox-Tmp 800-160Mg [Bactrim DS 800-160 mg] 1 tab PO Q12HR 10 Days #20 tab Is patient prescribed a controlled substance at d/c from ED?: No Referrals: Anjel El MD [Primary Care Provider] - 1-2 days
[2017-11-22 12:46] LABS: Basophils % (A) 0 %; Eosinophils # (A) 0.1 k/uL (0-0.7); Eosinophils % (A) 1 %; HCT 35.9 % (34.0-46.0); HGB 11.6 gm/dL (11.4-16.0); Lymphocytes # (A) 1.4 k/uL (1.0-4.8); Lymphocytes % (A) 14 %; MCH 28.3 pg (25.0-35.0); MCHC 32.5 g/dL (31.0-37.0); MCV 87.2 fL (80.0-100.0); Mean Platelet Volume 9.3; Monocytes # (A) 0.6 k/uL (0-1.0); Monocytes % (A) 6 %; Neutrophils # (A) 7.9 k/uL (1.3-7.7); Neutrophils % (A) 78 %; Platelet Count 183 k/uL (150-450); RBC 4.12 m/uL (3.80-5.40); RDW 15.6 % (11.5-15.5); WBC 10.1 k/uL (3.8-10.6)
[2017-11-22 12:58] LABS: Appearance,Urine Cloudy (Clear); Bacteria,Urine Occasional /hpf; Bilirubin,Urine Negative (Negative); Blood,Urine Small (Negative); Color,Urine Yellow; Glucose,Urine (UA) Negative (Negative); Ketones,Urine Negative (Negative); Leukocyte Esterase,Urine Large (Negative); Mucus,Urine Few /hpf; Nitrite,Urine Positive (Negative); PH, Urine 6.5 (5.0-8.0); Protein,Urine 1+ (Negative); RBC,Urine 11 /hpf (0-5); Specific Gravity,Urine 1.017 (1.001-1.035); Squamous Epithelial Cell,Urine 3 /hpf (0-4); Urobilinogen,Urine <2.0 mg/dL (<2.0); WBC,Urine 150 /hpf (0-5)
--- NOTE | 2017-11-22 13:01 | XR ---
EXAMINATION TYPE: XR KUB DATE OF EXAM: 11/22/2017 COMPARISON: NONE HISTORY: Pain TECHNIQUE: Single supine KUB image of the abdomen is obtained FINDINGS: Small bowel demonstrates no evidence for dilatation or air fluid levels. Gas and fecal material is seen in non-distended colon. No convincing evidence for pneumoperitoneum. No unusual calcifications. The lung bases are clear. The osseous structures are intact. IMPRESSION: 1. Overall nonobstructive bowel gas pattern.
[2017-11-22 13:03] LABS: ALT 30 U/L (9-52); AST 15 U/L (14-36); Albumin 4.4 g/dL (3.5-5.0); Alkaline Phosphatase 73 U/L (38-126); Anion Gap 12 mmol/L; Blood Urea Nitrogen 16 mg/dL (7-17); Calcium 9.5 mg/dL (8.4-10.2); Carbon Dioxide 26 mmol/L (22-30); Chloride 106 mmol/L (98-107); Glucose 81 mg/dL (74-99); Potassium 3.9 mmol/L (3.5-5.1); Sodium 144 mmol/L (137-145); Total Bilirubin 0.4 mg/dL (0.2-1.3); Total Protein 6.9 g/dL (6.3-8.2)
[2017-11-22 13:29] VITALS: BP 128/70; PULSE 78; RESP 16; TEMP 97.8
== END 2017-11-22 13:28 | disposition home or self-care (01) ==
LOC: EC 11:20
DX: N39.0 Urinary tract infection, site not specified (principal); F17.200 Nicotine dependence, unspecified, uncomplicated
CPT/HCPCS: 36415; 80053; 85025; 81001; 81025; 74018; 99284; 96374; J1885

== ENCOUNTER 2017-12-30 06:37 | Emergency (ER) | payer OTHER ==
[2017-12-30] MEDS ORDERED: DIPH,PERTUS(ACELL)TETVAC-LF 0.5 ML VIAL IM ONE (06:49)
--- NOTE | 2017-12-30 06:51 | ED ---
General Adult HPI - General Chief complaint: Fall Stated complaint: Fall, head/arm/hand pain Time Seen by Provider: 12/30/17 06:44 Source: patient, RN notes reviewed Mode of arrival: ambulatory Limitations: no limitations - History of Present Illness Initial comments: Patient's 22-year-old female presenting to the emergency room today with a chief complaint of a fall that occurred approximately 2 hours ago. She does admit that she was drinking last night. She states she fell down a hill. She states she struck the right side of her islam. She states she does not believe that she lost consciousness. Does admit to headache some pain locally to the area on the right side. Patient denies any visual changes. She denies any nausea or vomiting. Denies any neck back pain. Patient does admit to pain to the right elbow also to the right index finger. She states she has a laceration over the posterior aspect of the right index finger. She states she' s unsure of tetanus status. Patient denies any other complaints or symptoms at this time. Patient denies any recent fever, chills, shortness of breath, chest pain, back pain, abdominal pain, nausea or vomiting, numbness or tingling, dysuria or hematuria, constipation or diarrhea, visual changes, or any other complaints. - Related Data Home Medications Medication Instructions Recorded Confirmed Clindamycin [Cleocin] 150 mg PO TID 11/22/17 11/22/17 HYDROcodone/APAP 5-325MG [[place] 1 tab PO TID PRN 11/22/17 11/22/17 5-325] Ibuprofen [Motrin] 800 mg PO Q6H PRN 11/22/17 11/22/17 Previous Rx's Medication Instructions Recorded Sulfamethox-Tmp 800-160Mg [Bactrim 1 tab PO Q12HR 10 Days #20 tab 11/22/17 DS 800-160 mg] Allergies Allergy/AdvReac Type Severity Reaction Status Date / Time No Known Allergies Allergy Verified 12/30/17 06:43 Review of Systems ROS Statement: Those systems with pertinent positive or pertinent negative responses have been documented in the HPI. ROS Other: All systems not noted in ROS Statement are negative. Past Medical History Past Medical History: No Reported History Additional Past Medical History / Comment(s): Patient has had 4 spontaneous vaginal deliveries ranging from 8 lbs. 9 oz.-9 lbs. 6 oz. History of Any Multi-Drug Resistant Organisms: None Reported Past Surgical History: Tubal Ligation Past Anesthesia/Blood Transfusion Reactions: No Reported Reaction Additional Past Anesthesia/Blood Transfusion Reaction / Comment(s): n o hx. Past Psychological History: No Psychological Hx Reported Smoking Status: Current every day smoker Past Alcohol Use History: Occasional Past Drug Use History: None Reported - Past Family History Brother(s) Additional Family Medical History / Comment(s): hemophilia Father Family Medical History: No Reported History General Exam - General Exam Comments Initial Comments: General: The patient is awake and alert, in no distress, and does not appear acutely ill. Eye: Pupils are equal, round and reactive to light, extra-ocular movements are intact. No nystagmus. There is normal conjunctiva bilaterally. No signs of icterus. Ears, nose, mouth and throat: There are moist mucous membranes and no oral lesions. Neck: The neck is supple, there is no tenderness or JVD. Cardiovascular: There is a regular rate and rhythm. No murmur, rub or gallop is appreciated. Respiratory: Lungs are clear to auscultation, respirations are non-labored, breath sounds are equal. No wheezes, stridor, rales, or rhonchi. Musculoskeletal: Normal appearance of the cervical, thoracic, lumbar spine. No step-off or deformity. Patient does have tenderness and some mild swelling to the right elbow. Locally tender over the lateral epicondyle and posterior aspect of the right elbow. Shows good range of motion with flexion and extension. Able to supinate and pronate. No tenderness to the right wrist, right shoulder. Mild tenderness down to the right index finger. Strength 5/5. Sensation intact. Pulses equal bilaterally 2+. Neurological: A&O x 3. CN II-XII intact, There are no obvious motor or sensory deficits. Coordination appears grossly intact. Speech is normal. Skin: Approximately 1 cm linear laceration running vertically over the right index finger PIP joint. Psychiatric: Cooperative, appropriate mood & affect, normal judgment. Limitations: no limitations Course Vital Signs 12/30/17 12/30/17 06:40 07:40 Temperature 98.6 F Pulse Rate 107 H 91 Respiratory 19 18 Rate Blood Pressure 143/94 114/77 O2 Sat by Pulse 99 100 Oximetry Procedures - Procedures Initial comment: 1 cm linear laceration to the left index finger.The skin was anesthetized at the head of metacarpal of the second digit of the left hand with 1% lidocaine. The laceration was then cleansed with and irrigated with normal saline. The wound was inspected, and there was no evidence of injury to deep structures. No foreign body was noted in the wound. A total of 1 skin sutures were placed utilizing 4-0 nylon. Patient did have second and third laceration to the proximal phalanx of the fifth digit of the right hand each measuring approximately a half centimeter. Superficial skin flap type laceration. No suturing required was closed with Dermabond after being irrigated with saline. Medical Decision Making - Medical Decision Making Patient's CT of the head and neck negative for any acute abnormality. X-rays of the shoulder and hand are negative for any fracture dislocation. Results were discussed with patient. Sinuses symptoms concussion discussed in detail. Advised patient follow-up in 7-10 days for repeat x-rays of the elbow for repeat x-rays if symptoms persist. Advised Tylenol Motrin for pain and ice elevate affected areas. Advise having suture removed in 7-10 days. Advised watching for any signs of infection. Disposition Clinical Impression: Fall, Elbow contusion, Hand laceration Disposition: HOME SELF-CARE Condition: Good Instructions: Laceration (ED) Additional Instructions: Please have sutures removed in 7-10 days. Please allow the glue to follow up on its own over the next 3-5 days. Please watch presents infection which may include increased pain as well as some redness, fever or chills. Please follow- up in 7-10 days for repeat x-rays if symptoms persist as discussed. Please return for any other concerns. Is patient prescribed a controlled substance at d/c from ED?: No Referrals: Anjel El MD [Primary Care Provider] - 1-2 days Time of Disposition: 08:26
--- NOTE | 2017-12-30 07:35 | CT ---
EXAMINATION TYPE: CT brain swetha wo con DATE OF EXAM: 12/30/2017 COMPARISON: Previous CT scan of the brain dated 11/14/2011 HISTORY: Fall, Head, arm and neck pain CT DLP: Brain (1047.10) and C-spine (314.30) mGycm Automated exposure control for dose reduction was used. TECHNIQUE: CT scan of the head and cervical spine are performed without contrast. FINDINGS: BRAIN: Central structures are midline. There is no evidence of hydrocephalus. No acute focal lesion, mass effect or midline shift is seen. I do not see evidence of intracranial blood. There is metallic jewelry adjacent to the right orbit. Visualized portions of the paranasal sinuses and mastoids are clear. The bony calvarium is intact. IMPRESSION: NORMAL CT SCAN OF THE BRAIN. CERVICAL SPINE: There are emphysematous changes within the lungs. Prevertebral soft tissues are sparkle l. There is a mild reversal of the cervical lordosis. Alignment is maintained. Atlantoaxial relationship s are normal. There is no significant degenerative change. There is no evidence of discal protrusion. No fracture is seen. IMPRESSION: 1. NO ACUTE OSSEOUS LESION. 2. EMPHYSEMATOUS CHANGE.
[2017-12-30 07:42] VITALS: RESP 18
[2017-12-30] MEDS ORDERED: LIDOCAINE 1% INJ 10MG/ML (20 ML MDV) SQ STA (07:49)
[2017-12-30] MEDS ORDERED: TOPICAL SKIN ADHESIVE 1 EACH AMP TOPICAL ONE (07:56)
--- NOTE | 2017-12-30 08:00 | XR ---
EXAMINATION TYPE: XR hand complete RT , 3 VIEWS DATE OF EXAM ORDERED: 12/30/2017 HISTORY: Pain. COMPARISON: None. FINDINGS: No fracture, dislocation or other acute osseous lesion is seen. IMPRESSION: NORMAL RIGHT HAND.
--- NOTE | 2017-12-30 08:00 | XR ---
EXAMINATION TYPE: XR elbow complete RT , 3 VIEWS DATE OF EXAM ORDERED: 12/30/2017 HISTORY: Pain. COMPARISON: None. FINDINGS: No fracture, dislocation or elbow joint effusion is identified. IMPRESSION: NORMAL RIGHT ELBOW.
[2017-12-30 08:42] VITALS: BP 116/65; PULSE 82; TEMP 97.7
== END 2017-12-30 08:44 | disposition home or self-care (01) ==
LOC: EC 06:37
DX: S61.210A Laceration without foreign body of right index finger without damage to nail, initial encounter (principal); S61.216A Laceration without foreign body of right little finger without damage to nail, initial encounter; S50.01XA Contusion of right elbow, initial encounter; R51 Headache; F17.200 Nicotine dependence, unspecified, uncomplicated; Z23 Encounter for immunization; W17.81XA Fall down embankment (hill), initial encounter; Y93.89 Activity, other specified; Y92.832 Beach as the place of occurrence of the external cause
CPT/HCPCS: 73080; 73130; 72125; 70450; 90715; 99284; 12001; 90471; J2001

== ENCOUNTER 2018-06-13 20:10 | Emergency (ER) | payer OTHER ==
[2018-06-13 20:19] VITALS: BP 128/80; PULSE 97; RESP 16; TEMP 98.2
--- NOTE | 2018-06-13 22:02 | ED ---
General Adult HPI - General Chief complaint: Skin/Abscess/Foreign Body Stated complaint: Allergic reaction Source: patient, RN notes reviewed, old records reviewed Mode of arrival: ambulatory Limitations: no limitations - History of Present Illness Initial comments: for approximately 2 days. Patient complains of small 1mm erythematous flat papules that are spread out and no discernible pattern on her arms, abdomen, back. The rash spares the soles. Patient states that they're very pruritic. Patient states that she had a low grade fever one day that has resolved, patient also reports a mild sore throat last 3 days. Patient denies other complaints. Systemic: Pt denies fatigue, myalgia, chills. Pt denies weakness, night sweats, weight loss. Neuro: Pt denies headache, visual disturbances, syncope or pre-syncope. HEENT: Pt denies ocular discharge or irritation, otalgia, rhinorrhea, pharyngitis or notable lymphadenopathy. Cardiopulmonary: Pt denies chest pain, SOB, heart palpitations, dyspnea on exertion. Abdominal/GI: Pt denies abdominal pain, n/v/d. : Pt denies dysuria, burning w/ urination, frequency/urgency. Denies new onset urinary or bowel incontinence. MSK: Pt denies myalgia, loss of strength or function in extremities. Neuro: Pt denies new onset weakness, paresthesias. - Related Data Home Medications Medication Instructions Recorded Confirmed Clindamycin [Cleocin] 150 mg PO TID 11/22/17 11/22/17 HYDROcodone/APAP 5-325MG [[place] 1 tab PO TID PRN 11/22/17 11/22/17 5-325] Ibuprofen [Motrin] 800 mg PO Q6H PRN 11/22/17 11/22/17 Previous Rx's Medication Instructions Recorded Sulfamethox-Tmp 800-160Mg [Bactrim 1 tab PO Q12HR 10 Days #20 tab 11/22/17 DS 800-160 mg] Allergies Allergy/AdvReac Type Severity Reaction Status Date / Time No Known Allergies Allergy Verified 06/13/18 20:19 Review of Systems ROS Statement: Those systems with pertinent positive or pertinent negative responses have been documented in the HPI. ROS Other: All systems not noted in ROS Statement are negative. Past Medical History Past Medical History: No Reported History Additional Past Medical History / Comment(s): Patient has had 4 spontaneous vaginal deliveries ranging from 8 lbs. 9 oz.-9 lbs. 6 oz. History of Any Multi-Drug Resistant Organisms: None Reported Past Surgical History: Tubal Ligation Past Anesthesia/Blood Transfusion Reactions: No Reported Reaction Additional Past Anesthesia/Blood Transfusion Reaction / Comment(s): n o hx. Past Psychological History: No Psychological Hx Reported Smoking Status: Current every day smoker Past Alcohol Use History: Occasional Past Drug Use History: None Reported - Past Family History Brother(s) Additional Family Medical History / Comment(s): hemophilia Father Family Medical History: No Reported History General Exam - General Exam Comments Initial Comments: Constitutional: NAD, AOX3, Pt has pleasant affect. HEENT: NC/AT, trachea midline, neck supple, no lymphadenopathy. Posterior pharynx non erythematous, without exudates. External ears appear normal, without discharge. Mucous membranes moist. Eyes PERRLA, EOM intact. There is no scleral icterus. No pallor noted. Cardiopulmonary: RRR, no murmurs, rubs or gallops, no JVD noted. Lungs CTAB in anterior and posterior morgan. No peripheral edema. Abdominal exam: Abdomen soft and non-distended. Abdomen non-tender to palpation in all 4 quadrants. Bowel sounds active in LLQ. No hepatosplenomegaly. No ecchymosis Neuro: CN II-XII grossly intact. No nuchal rigidity. MSK: No posterior calf tenderness bilaterally, homans sign negative bilaterally. Posterior tibialis and radial pulse +2 bilaterally. Sensation intact in upper and lower extremities. Full active ROM in upper and lower extremities, 5/5 stregnth. Derm: small 1mm erythematous flat papules that are spread out and no discernible pattern on her arms, abdomen, back. The rash spares the soles. Limitations: no limitations Course Vital Signs 06/13/18 20:17 Temperature 98.2 F Pulse Rate 97 Respiratory 16 Rate Blood Pressure 128/80 O2 Sat by Pulse 100 Oximetry Medical Decision Making - Medical Decision Making 22 year old female patient with no pertinent past medical history presents to ED with 2 days of erythematous pruritic Rash. Vital signs stable. Physical exam revealed small 1mm erythematous flat papules that are spread out and no discernible pattern on her arms, abdomen, back. The rash spares the soles. Pt diagnosed with mild dermatitis. Pt to continue using benadryl at home as needed. Patient to continue to monitor sore throat, supportive treatment, follow-up with PCP. Pt to f/u with PCP in 1-2 days. Pt to return to ED if new s /sx develop or if sx worsen in anyway. Case discussed and pt seen by Dr. Alvarez. Disposition Clinical Impression: Dermatitis Disposition: HOME SELF-CARE Condition: Good Instructions: Contact Dermatitis (ED) Additional Instructions: Patient to adhere to previously discussed treatment plan and will take medication(s) as directed. Patient to follow up with PCP in 1-2 days. Patient to return to ED if symptoms do not improve. Is patient prescribed a controlled substance at d/c from ED?: No Referrals: Anjel El MD [Primary Care Provider] - 1-2 days
== END 2018-06-13 22:13 | disposition home or self-care (01) ==
LOC: EC 20:10
DX: L30.9 Dermatitis, unspecified (principal); F17.200 Nicotine dependence, unspecified, uncomplicated
CPT/HCPCS: 99283

== ENCOUNTER 2018-09-07 09:51 | Emergency (ER) | payer OTHER ==
[2018-09-07 09:55] VITALS: TEMP 98.7
[2018-09-07] MEDS ORDERED: KETOROLAC 30 MG/ML 1 ML VIAL IVP STA (10:45)
[2018-09-07] MEDS ORDERED: MAG HYDROX/AL HYDROX/SIMETH 30 ML, HYOSCYAMINE ELIXIR 10 ML, CIMETIDINE HCL 300 MG, LID... PO STA ×4 (10:45)
--- NOTE | 2018-09-07 10:48 | ED ---
General Adult HPI - General Chief complaint: Abdominal Pain Stated complaint: Side pain Time Seen by Provider: 09/07/18 10:25 Source: patient Mode of arrival: ambulatory Limitations: no limitations - History of Present Illness Initial comments: Dictation was produced using [employer] dictation software. please excuse any grammatical, word or spelling errors. Chief Complaint: 23-year-old female presents with left lower chest pain and left upper quadrant abdominal pain one week History of Present Illness: Is a 23-year-old female she reports 1 week of left- sided abdominal pain left-sided lower chest pain. She is in the emergency department today because she feels like her pain is getting slowly worse. She does report worsening symptoms with deep inspiration and coughing. Patient denies any urinary type symptoms today or recently. No nausea vomiting diarrhea. Patient tolerating by mouth. Denies any history of blood clots. Denies any current medications. Patient states that she feels like she is having really bad heartburn. However she denies any worsening symptoms with by mouth intake. She reports not being able to lie left lateral, position secondary to pain. She reports that pain is not reproduced with palpation to the external chest. The ROS documented in this emergency department record has been reviewed and confirmed by me. Those systems with pertinent positive or negative responses have been documented in the HPI. All other systems are other negative and/or noncontributory. PHYSICAL EXAM: General Impression: Alert and oriented x3, not in acute distress HEENT: Normocephalic atraumatic, extra-ocular movements intact, pupils equal and reactive to light bilaterally, mucous membranes moist. Cardiovascular: Heart regular rate and rhythm, S1&S2 audible, no murmurs, rubs or gallops Chest: Lungs clear to auscultation bilaterally, no rhonchi, no wheeze, no rales Abdomen: Bowel sounds present, abdomen soft, non-tender, non-distended, no organomegaly Musculoskeletal: Pulses present and equal in all extremities, no peripheral edema Motor: no focal deficits noted Neurological: CN II-XII grossly intact, no focal motor or sensory deficits noted Skin: Intact with no visualized rashes Psych: Normal affect and mood ED course: 23-year-old female presents with atypical chest pain. Vital signs upon arrival are within normal limits.Laboratory evaluation obtained. CBC, metabolic panel is unremarkable. Urinalysis is negative. Chest and abdominal x-ray shows no acute processes. Patient given GI cocktail with no improvement of symptoms. She is given some Toradol with some improvement of symptoms. Patient denies any cardiac history. Patient has no risk factors. She is not on any oral contraceptive medications. At this point no clinical suspicion of acute emergent cardiopulmonary disease including acute coronary syndrome, pulmonary embolus or acute aortic dissection. Patient reevaluated found to be in stable medical condition. She is smiling and in no acute distress. Patient clear for discharge. Given prescription for by mouth analgesics. Patient told to rest and take pain medications. Patient told to return to the emergency Department with any worsening symptoms especially worsening chest pain, shortness of breath. Patient understandable agreeable to plan. I doubt any serious process at this time however patient does report that her symptoms are severe. Patient is offered definitive testing for acute coronary syndrome, pulmonary embolus and acute aortic dissection. She refuses and would rather come back if symptoms acutely worsen. This is reasonable disposition given that patient's symptoms likely reflect atypical chest pain. Patient satisfied with disposition. EKG interpretation: Ventricular rate 65, normal sinus rhythm,. PT, care is 80, QTc 397. No MO prolongation, no QTC prolongation, no ST or T-wave changes noted. Overall, this EKG is unremarkable - Related Data Home Medications Medication Instructions Recorded Confirmed Acetaminophen Tab [Tylenol Tab] 650 mg PO Q6H PRN 09/07/18 09/07/18 Calcium Carbonate [Tums] 500 mg PO TID PRN 09/07/18 09/07/18 Ibuprofen [Motrin Ib] 400 mg PO Q6HR PRN 09/07/18 09/07/18 Previous Rx's Medication Instructions Recorded Ketorolac [Toradol] 10 mg PO Q6HR PRN #12 tab 09/07/18 Allergies Allergy/AdvReac Type Severity Reaction Status Date / Time No Known Allergies Allergy Verified 09/07/18 11:09 Review of Systems ROS Statement: Those systems with pertinent positive or pertinent negative responses have been documented in the HPI. ROS Other: All systems not noted in ROS Statement are negative. Past Medical History Past Medical History: No Reported History Additional Past Medical History / Comment(s): Patient has had 4 spontaneous va ginal deliveries ranging from 8 lbs. 9 oz.-9 lbs. 6 oz. History of Any Multi-Drug Resistant Organisms: None Reported Past Surgical History: Tubal Ligation Past Anesthesia/Blood Transfusion Reactions: No Reported Reaction Additional Past Anesthesia/Blood Transfusion Reaction / Comment(s): n o hx. Past Psychological History: No Psychological Hx Reported Smoking Status: Current every day smoker Past Alcohol Use History: Occasional Past Drug Use History: None Reported - Past Family History Brother(s) Additional Family Medical History / Comment(s): hemophilia Father Family Medical History: No Reported History General Exam Limitations: no limitations Course Vital Signs 09/07/18 09:53 Temperature 98.7 F Pulse Rate 86 Respiratory 18 Rate Blood Pressure 124/77 O2 Sat by Pulse 99 Oximetry Medical Decision Making - Lab Data Result diagrams: 09/07/18 10:58 09/07/18 10:58 Lab Results 09/07/18 09/07/18 09/07/18 Range/Units 10:58 10:58 10:58 WBC (3.8-10.6) k/uL RBC (3.80-5.40) m/uL Hgb (11.4-16.0) gm/dL Hct (34.0-46.0) % MCV (80.0-100.0) fL MCH (25.0-35.0) pg MCHC (31.0-37.0) g/dL RDW (11.5-15.5) % Plt Count (150-450) k/uL Neutrophils % % Lymphocytes % % Monocytes % % Eosinophils % % Basophils % % Neutrophils # (1.3-7.7) k/uL Lymphocytes # (1.0-4.8) k/uL Monocytes # (0-1.0) k/uL Eosinophils # (0-0.7) k/uL Basophils # (0-0.2) k/uL Hypochromasia Sodium 141 (137-145) mmol/L Potassium 4.3 (3.5-5.1) mmol/L Chloride 108 H (98-107) mmol/L Carbon Dioxide 25 (22-30) mmol/L Anion Gap 8 mmol/L BUN 13 (7-17) mg/dL Creatinine 0.56 (0.52-1.04) mg/dL Est GFR (CKD-EPI)AfAm >90 (>60 ml/min/1.73 sqM) Est GFR (CKD-EPI)NonAf >90 (>60 ml/min/1.73 sqM) Glucose 88 (74-99) mg/dL Calcium 9.6 (8.4-10.2) mg/dL Total Bilirubin 0.3 (0.2-1.3) mg/dL AST 14 (14-36) U/L ALT 27 (9-52) U/L Alkaline Phosphatase 81 (38-126) U/L Total Protein 6.9 (6.3-8.2) g/dL Albumin 4.1 (3.5-5.0) g/dL Lipase 48 (23-300) U/L Urine Color Yellow Urine Appearance Clear (Clear) Urine pH 6.5 (5.0-8.0) Ur Specific Whiteside 1.019 (1.001-1.035) Urine Protein Negative (Negative) Urine Glucose (UA) Negative (Negative) Urine Ketones Negative (Negative) Urine Blood Negative (Negative) Urine Nitrite Negative (Negative) Urine Bilirubin Negative (Negative) Urine Urobilinogen <2.0 (<2.0) mg/dL Ur Leukocyte Esterase Negative (Negative) Urine HCG, Qual Not Detected (Not Detectd) 09/07/18 Range/Units 10:58 WBC 8.4 (3.8-10.6) k/uL RBC 3.98 (3.80-5.40) m/uL Hgb 10.4 L (11.4-16.0) gm/dL Hct 33.5 L (34.0-46.0) % MCV 84.2 (80.0-100.0) fL MCH 26.1 (25.0-35.0) pg MCHC 30.9 L (31.0-37.0) g/dL RDW 15.9 H (11.5-15.5) % Plt Count 178 (150-450) k/uL Neutrophils % 79 % Lymphocytes % 12 % Monocytes % 5 % Eosinophils % 1 % Basophils % 0 % Neutrophils # 6.7 (1.3-7.7) k/uL Lymphocytes # 1.0 (1.0-4.8) k/uL Monocytes # 0.4 (0-1.0) k/uL Eosinophils # 0.1 (0-0.7) k/uL Basophils # 0.0 (0-0.2) k/uL Hypochromasia Slight Sodium (137-145) mmol/L Potassium (3.5-5.1) mmol/L Chloride (98-107) mmol/L Carbon Dioxide (22-30) mmol/L Anion Gap mmol/L BUN (7-17) mg/dL Creatinine (0.52-1.04) mg/dL Est GFR (CKD-EPI)AfAm (>60 ml/min/1.73 sqM) Est GFR (CKD-EPI)NonAf (>60 ml/min/1.73 sqM) Glucose (74-99) mg/dL Calcium (8.4-10.2) mg/dL Total Bilirubin (0.2-1.3) mg/dL AST (14-36) U/L ALT (9-52) U/L Alkaline Phosphatase (38-126) U/L Total Protein (6.3-8.2) g/dL Albumin (3.5-5.0) g/dL Lipase (23-300) U/L Urine Color Urine Appearance (Clear) Urine pH (5.0-8.0) Ur Specific Whiteside (1.001-1.035) Urine Protein (Negative) Urine Glucose (UA) (Negative) Urine Ketones (Negative) Urine Blood (Negative) Urine Nitrite (Negative) Urine Bilirubin (Negative) Urine Urobilinogen (<2.0) mg/dL Ur Leukocyte Esterase (Negative) Urine HCG, Qual (Not Detectd) Disposition Clinical Impression: Chest pain Disposition: HOME SELF-CARE Condition: Good Instructions (If sedation given, give patient instructions): Chest Pain (ED) Prescriptions: Ketorolac [Toradol] 10 mg PO Q6HR PRN #12 tab PRN Reason: Pain Is patient prescribed a controlled substance at d/c from ED?: No Referrals: Anjel El MD [Primary Care Provider] - 1-2 days Time of Disposition: 13:02
[2018-09-07 11:47] LABS: Basophils % (A) 0 %; Eosinophils # (A) 0.1 k/uL (0-0.7); Eosinophils % (A) 1 %; HCT 33.5 % (34.0-46.0); HGB 10.4 gm/dL (11.4-16.0); Hypochromasia Slight; Lymphocytes % (A) 12 %; MCH 26.1 pg (25.0-35.0); MCHC 30.9 g/dL (31.0-37.0); MCV 84.2 fL (80.0-100.0); Mean Platelet Volume 8.1; Monocytes # (A) 0.4 k/uL (0-1.0); Monocytes % (A) 5 %; Neutrophils # (A) 6.7 k/uL (1.3-7.7); Neutrophils % (A) 79 %; Platelet Count 178 k/uL (150-450); RBC 3.98 m/uL (3.80-5.40); RDW 15.9 % (11.5-15.5); WBC 8.4 k/uL (3.8-10.6)
[2018-09-07 11:56] LABS: Appearance,Urine Clear (Clear); Bilirubin,Urine Negative (Negative); Blood,Urine Negative (Negative); Color,Urine Yellow; Glucose,Urine (UA) Negative (Negative); Ketones,Urine Negative (Negative); Leukocyte Esterase,Urine Negative (Negative); Nitrite,Urine Negative (Negative); PH, Urine 6.5 (5.0-8.0); Protein,Urine Negative (Negative); Specific Gravity,Urine 1.019 (1.001-1.035); Urobilinogen,Urine <2.0 mg/dL (<2.0)
[2018-09-07 11:59] LABS: ALT 27 U/L (9-52); AST 14 U/L (14-36); Albumin 4.1 g/dL (3.5-5.0); Alkaline Phosphatase 81 U/L (38-126); Anion Gap 8 mmol/L; Blood Urea Nitrogen 13 mg/dL (7-17); Calcium 9.6 mg/dL (8.4-10.2); Carbon Dioxide 25 mmol/L (22-30); Chloride 108 mmol/L (98-107); Glucose 88 mg/dL (74-99); Lipase 48 U/L (23-300); Potassium 4.3 mmol/L (3.5-5.1); Sodium 141 mmol/L (137-145); Total Bilirubin 0.3 mg/dL (0.2-1.3); Total Protein 6.9 g/dL (6.3-8.2)
--- NOTE | 2018-09-07 13:07 | XR ---
EXAMINATION TYPE: XR abdomen acute w cxr , 4 VIEWS DATE OF EXAM ORDERED: 09/07/2018 HISTORY: Pain. COMPARISON: None. FINDINGS: The lungs are clear. Pleural space are clear. The heart is not enlarged. Within the abdomen, the abdominal gas pattern is normal. There is no evidence of obstruction or free air. There are multiple phleboliths within the pelvis. IMPRESSION: NO ACUTE ABDOMINAL OR THORACIC ABNORMALITY.
[2018-09-07 13:11] VITALS: BP 129/83; PULSE 67; RESP 16
== END 2018-09-07 13:12 | disposition home or self-care (01) ==
LOC: EC 09:51
DX: R07.89 Other chest pain (principal); R10.12 Left upper quadrant pain; F17.200 Nicotine dependence, unspecified, uncomplicated; Z53.29 Procedure and treatment not carried out because of patient's decision for other reasons; Z98.51 Tubal ligation status
CPT/HCPCS: 36415; 93005; 80053; 83690; 85025; 81003; 81025; 74022; 99284; 96374; J1885

== ENCOUNTER 2019-04-09 14:58 | Emergency (ER) | payer OTHER ==
[2019-04-09 15:03] VITALS: BP 140/63; PULSE 89; RESP 20; TEMP 98.1
--- NOTE | 2019-04-09 15:30 | XR ---
Left foot and left ankle HISTORY: Trauma and pain 3 views of the left foot and 3 views of the left ankle are submitted. There is a flake-like calcification present at the level of the distal lateral malleolus which may re present a small avulsion injury or chip fracture. There is no dislocation. Alignment is maintained. T here is mild soft tissue swelling present. Bone mineralization is normal. IMPRESSION: Correlate for point tenderness at the distal fibula.
--- NOTE | 2019-04-09 15:36 | ED ---
Lower Extremity Injury HPI - General Chief Complaint: Extremity Injury, Lower Stated Complaint: ankle pain Time Seen by Provider: 04/09/19 15:04 Source: patient Mode of arrival: wheelchair Limitations: no limitations - History of Present Illness Initial Comments: 23-year-old female presenting today for chief complaint left ankle pain. Patient states that she tripped and fell rolling her left ankle inward. Patient states she has had pain with ambulation since. Patient was concerned as fracture given the pain and soft tissue swelling. Patient denies. Knee injury to head neck back or abdomen. Patient denies any injuries of the right lower extremity or upper extremity. Remaining review of system negative. Including denial of numbness tingling loss sensation, coolnesspr pallor of the extremity. - Related Data Home Medications Medication Instructions Recorded Confirmed Acetaminophen Tab [Tylenol Tab] 650 mg PO Q6H PRN 09/07/18 09/07/18 Calcium Carbonate [Tums] 500 mg PO TID PRN 09/07/18 09/07/18 Ibuprofen [Motrin Ib] 400 mg PO Q6HR PRN 09/07/18 09/07/18 Previous Rx's Medication Instructions Recorded Ketorolac [Toradol] 10 mg PO Q6HR PRN #12 tab 09/07/18 Allergies Allergy/AdvReac Type Severity Reaction Status Date / Time No Known Allergies Allergy Verified 04/09/19 15:03 Review of Systems ROS Statement: Those systems with pertinent positive or pertinent negative responses have been documented in the HPI. ROS Other: All systems not noted in ROS Statement are negative. Past Medical History Past Medical History: No Reported History Additional Past Medical History / Comment(s): Patient has had 4 spontaneous vaginal deliveries ranging from 8 lbs. 9 oz.-9 lbs. 6 oz. History of Any Multi-Drug Resistant Organisms: None Reported Past Surgical History: Tubal Ligation Past Anesthesia/Blood Transfusion Reactions: No Reported Reaction Additional Past Anesthesia/Blood Transfusion Reaction / Comment(s): n o hx. Past Psychological History: No Psychological Hx Reported Smoking Status: Current every day smoker Past Alcohol Use History: Occasional Past Drug Use History: None Reported - Past Family History Brother(s) Additional Family Medical History / Comment(s): hemophilia Father Family Medical History: No Reported History General Exam - General Exam Comments Initial Comments: General: The patient is awake and alert, in no distress, and does not appear acutely ill. Cardiovascular: There is a regular rate and rhythm. No murmur, rub or gallop is appreciated. Respiratory: Lungs are clear to auscultation, respirations are non-labored, breath sounds are equal. No wheezes, stridor, rales, or rhonchi. Musculoskeletal: Upon inspection of the legs bilaterally there is soft tissue swelling of the lateral malleolus of the right ankle. Point localized tenderness. No tenderness to palpation of the forefoot there is mild tenderness to palpation over the foot most proximal to the ankle mortise. Compartments soft and compressible. No pain to palpation of the proximal tibia and fibula. Strength 5/5. Sensation intact. DP pulses equal bilaterally 2+. Neurological: A&O x 3. CN II-XII intact grossly, There are no obvious motor or sensory deficits. Coordination appears grossly intact. Speech is normal. Skin: Skin is warm and dry and no rashes or lesions are noted. Psychiatric: Cooperative, appropriate mood & affect, normal judgment. Limitations: no limitations Course Vital Signs 04/09/19 15:00 Temperature 98.1 F Pulse Rate 89 Respiratory 20 Rate Blood Pressure 140/63 O2 Sat by Pulse 100 Oximetry Medical Decision Making - Medical Decision Making 23-year-old female presented for ankle pain. imaging studies concerning for avulsion fracture of lateral malleolus. There is point localized tenderness. Patient is placed in a posterior splint. Rest. Neurovascular exam both prior and after splint placement intact. Patient instructed to use crutches for ambulation follow-up with orthopedic surgery. Return parameters were discussed as well as Rice treatment. Patient verbalized understanding and was discharged appearing well Disposition Clinical Impression: Avulsion fracture of lateral malleolus of left fibula, Ankle pain, Fall Disposition: HOME SELF-CARE Condition: Good Instructions (If sedation given, give patient instructions): Ankle Fracture (ED) Additional Instructions: Please use medication as discussed. Please follow-up with orthopedics or family doctor within next 1-2 days. Please return to emergency room if the symptoms increase or worsen or for any other concerns. Is patient prescribed a controlled substance at d/c from ED?: No Referrals: Anjel El MD [Primary Care Provider] - 1-2 days Chaim Pavon MD [STAFF PHYSICIAN] - 1-2 days Time of Disposition: 15:35
== END 2019-04-09 15:44 | disposition home or self-care (01) ==
LOC: EC 14:58
DX: S82.62XA Displaced fracture of lateral malleolus of left fibula, initial encounter for closed fracture (principal); F17.200 Nicotine dependence, unspecified, uncomplicated; W01.0XXA Fall on same level from slipping, tripping and stumbling without subsequent striking against object, initial encounter; X50.1XXA Overexertion from prolonged static or awkward postures, initial encounter; Y92.89 Other specified places as the place of occurrence of the external cause
CPT/HCPCS: 29515; 99283

== ENCOUNTER 2019-05-04 15:10 | Emergency (ER) | payer OTHER ==
[2019-05-04 15:33] VITALS: BP 154/95; PULSE 84; RESP 18; TEMP 98.3
[2019-05-04] MEDS ORDERED: DIPH,PERTUS(ACELL)TETVAC-LF 0.5 ML VIAL IM ONE (15:51)
[2019-05-04] MEDS ORDERED: LIDOCAINE 1% INJ 10MG/ML (20 ML MDV) SQ ONE (15:51)
--- NOTE | 2019-05-04 16:09 | XR ---
EXAMINATION TYPE: XR hand complete RT DATE OF EXAM: 05/04/2019 COMPARISON: NONE HISTORY: Laceration TECHNIQUE: 3 views FINDINGS: I see no fracture nor dislocation. Joint spaces appear normal. There is no sign of a foreig n body. There are no pathologic calcifications. IMPRESSION: Negative right hand exam.
--- NOTE | 2019-05-04 16:40 | ED ---
Wound/Laceration HPI - General Chief Complaint: Wound/Laceration Stated Complaint: Hand lac Time Seen by Provider: 05/04/19 15:37 Source: patient, RN notes reviewed, old records reviewed Mode of arrival: ambulatory Limitations: no limitations - History of Present Illness Initial Comments: Patient is a 23 year old female, with laceration in webspace of R 2nd and 3rd digit from knife. She reports she was cleaning a drawer with knives and her hand hit the knife. PAtient has full sensation and range of motion of fingers. She complains of pain of second knuckle. PAtient is right handed. - Related Data Home Medications Medication Instructions Recorded Confirmed Acetaminophen Tab [Tylenol Tab] 650 mg PO Q6H PRN 09/07/18 09/07/18 Calcium Carbonate [Tums] 500 mg PO TID PRN 09/07/18 09/07/18 Ibuprofen [Motrin Ib] 400 mg PO Q6HR PRN 09/07/18 09/07/18 Previous Rx's Medication Instructions Recorded Ketorolac [Toradol] 10 mg PO Q6HR PRN #12 tab 09/07/18 Allergies Allergy/AdvReac Type Severity Reaction Status Date / Time No Known Allergies Allergy Verified 04/09/19 15:03 Review of Systems ROS Statement: Those systems with pertinent positive or pertinent negative responses have been documented in the HPI. ROS Other: All systems not noted in ROS Statement are negative. Past Medical History Past Medical History: No Reported History Additional Past Medical History / Comment(s): Patient has had 4 spontaneous vaginal deliveries ranging from 8 lbs. 9 oz.-9 lbs. 6 oz. History of Any Multi-Drug Resistant Organisms: None Reported Past Surgical History: Tubal Ligation Past Anesthesia/Blood Transfusion Reactions: No Reported Reaction Additional Past Anesthesia/Blood Transfusion Reaction / Comment(s): n o hx. Past Psychological History: No Psychological Hx Reported Smoking Status: Current every day smoker Past Alcohol Use History: Occasional Past Drug Use History: None Reported - Past Family History Brother(s) Additional Family Medical History / Comment(s): hemophilia Father Family Medical History: No Reported History General Exam - General Exam Comments Initial Comments: 23 year old female, anxious. Limitations: no limitations General appearance: alert, in no apparent distress Head exam: Present: atraumatic, normocephalic, normal inspection Eye exam: Present: normal appearance, PERRL, EOMI. Absent: scleral icterus, conjunctival injection, periorbital swelling ENT exam: Present: normal exam, mucous membranes moist Neck exam: Present: normal inspection. Absent: tenderness, meningismus, lymphadenopathy Respiratory exam: Present: normal lung sounds bilaterally. Absent: respiratory distress, wheezes, rales, rhonchi, stridor Cardiovascular Exam: Present: regular rate, normal rhythm, normal heart sounds. Absent: systolic murmur, diastolic murmur, rubs, gallop, clicks GI/Abdominal exam: Present: soft, normal bowel sounds. Absent: distended, tenderness, guarding, rebound, rigid Extremities exam: Present: normal inspection, full ROM, normal capillary refill. Absent: tenderness, pedal edema, joint swelling, calf tenderness Right Hand Wrist exam: Present: full ROM, laceration. Absent: normal inspection Hand L/R Front: 1 - laceration (4cm laceration) Neuro motor exam: Present: wrist extension intact, thumb opposition intact, thumb IP flexion intact, thumb adduction intact, fingers 2-5 abduction intact Vascular: Present: normal capillary refill Neurological exam: Present: alert, oriented X3, CN II-XII intact Psychiatric exam: Present: normal affect, normal mood Course Vital Signs 05/04/19 15:29 Temperature 98.3 F Pulse Rate 84 Respiratory 18 Rate Blood Pressure 154/95 O2 Sat by Pulse 97 Oximetry Procedures - Laceration Laceration #1 Indication: laceration Site: hand (between 2nd and 3rd digit. ) Size (cm): 4 Description: linear Depth: simple, single layer Anesthetic Used: lidocaine 1% Anesthesia Technique: local infiltration Amount (mls): 4 Pre-repair: wound explored, irrigated extensively Type of Sutures: nylon Size of Sutures: 5-0 Number of Sutures: 6 Technique: simple, interrupted Patient Tolerated Procedure: well, no complications Medical Decision Making - Medical Decision Making Patient is a 23 year old female, patient has laceration between 2nd and 3rd digit. PAtient wound was caused by a knife. Laceration was cleaned and closed with 6 sutures. Full range of motion noted of finger and hand. No tendon involvement. Given TDAP. Discussed close PCP follow up. - Radiology Data Radiology results: report reviewed Normal hand xray, no fracture. Disposition Clinical Impression: Hand laceration Disposition: HOME SELF-CARE Condition: Good Instructions (If sedation given, give patient instructions): Care For Your Stitches (DC) Additional Instructions: Please return to the emergency room in 8-10 days to have sutures removed. Please leave wound covered for the first 24-48 hours and then leave open to air after that time. Please use clean soap and water to clean the suture area to prevent scabbing over the top of your sutures. Please watch for any signs of infection which may include but not limited to increased pain, swelling, redness, fever or chills. Please return to the emergency room if any signs of infection do occur. Please return to the emergency room for any other concerns or complications. Is patient prescribed a controlled substance at d/c from ED?: No Referrals: Anjel El MD [Primary Care Provider] - 1-2 days Time of Disposition: 16:40
== END 2019-05-04 16:51 | disposition home or self-care (01) ==
LOC: EC 15:10
DX: S61.411A Laceration without foreign body of right hand, initial encounter (principal); F17.200 Nicotine dependence, unspecified, uncomplicated; Z23 Encounter for immunization; W26.0XXA Contact with knife, initial encounter; Y93.E9 Activity, other interior property and clothing maintenance; Y92.009 Unspecified place in unspecified non-institutional (private) residence as the place of occurrence of the external cause
CPT/HCPCS: 73130; 90715; 99283; 12002; 90471; J2001

== ENCOUNTER 2020-07-05 23:04 | Inpatient (IN) | payer OTHER ==
[2020-07-05] MEDS ORDERED: KETOROLAC 15 MG/ML 1 ML VIAL IVP STA (23:31)
[2020-07-05] MEDS ORDERED: SODIUM CHLORIDE 0.9% 1,000 ML IV STA (23:31)
[2020-07-05] MEDS ORDERED: ONDANSETRON 4 MG/2 ML VIAL IVP STA (23:31)
[2020-07-05] MEDS ORDERED: SODIUM CHLORIDE 0.9% 500 ML 500 ML IV STA (23:31)
--- NOTE | 2020-07-05 23:37 | ED ---
General Adult HPI - General Chief complaint: Fever Stated complaint: Fever, JAMAR Time Seen by Provider: 07/05/20 23:09 Source: patient Mode of arrival: wheelchair Limitations: no limitations - History of Present Illness Initial comments: 24-year-old female patient presents to the emergency department today for evaluation of fever and vomiting. Patient states symptoms of the present for the last 2 days. States she is having generalized body aches. States her abdominal muscles are sore from vomiting so much. States she is unable to keep down any food or fluids. Denies any hematuria, dysuria, urinary frequency, urinary urgency Denies chance of , states she has had tubal ligation. Denies alcohol or drug use. Denies any history of chronic medical conditions. Did take Tylenol roughly 3-4 hours ago. Patient denies any recent rash, cough, shortness of breath, chest pain, diarrhea, constipation, back pain, numbness, tingling, dizziness, weakness, headache, visual changes, or any other complaints. - Related Data Home Medications Medication Instructions Recorded Confirmed Acetaminophen Tab [Tylenol Tab] 650 mg PO Q6H PRN 09/07/18 09/07/18 Calcium Carbonate [Tums] 500 mg PO TID PRN 09/07/18 09/07/18 Ibuprofen [Motrin Ib] 400 mg PO Q6HR PRN 09/07/18 09/07/18 Previous Rx's Medication Instructions Recorded Ketorolac [Toradol] 10 mg PO Q6HR PRN #12 tab 09/07/18 Allergies Allergy/AdvReac Type Severity Reaction Status Date / Time No Known Allergies Allergy Verified 07/05/20 23:09 Review of Systems ROS Statement: Those systems with pertinent positive or pertinent negative responses have been documented in the HPI. ROS Other: All systems not noted in ROS Statement are negative. Past Medical History Past Medical History: No Reported History Additional Past Medical History / Comment(s): Patient has had 4 spontaneous vaginal deliveries ranging from 8 lbs. 9 oz.-9 lbs. 6 oz. History of Any Multi-Drug Resistant Organisms: None Reported Past Surgical History: Tubal Ligation Past Anesthesia/Blood Transfusion Reactions: No Reported Reaction Additional Past Anesthesia/Blood Transfusion Reaction / Comment(s): n o hx. Past Psychological History: No Psychological Hx Reported Smoking Status: Current every day smoker Past Alcohol Use History: None Reported Past Drug Use History: None Reported - Past Family History Brother(s) Additional Family Medical History / Comment(s): hemophilia Father Family Medical History: No Reported History General Exam Limitations: no limitations General appearance: alert, in no apparent distress, other (This is a well- developed, well-nourished adult female patient in no acute distress. Vital signs upon presentation are temperature 98.8F, pulse 116, respirations 16, blood pressure 97/60, pulse ox 97% on room air.) ENT exam: Present: normal exam, normal oropharynx, mucous membranes moist Respiratory exam: Present: normal lung sounds bilaterally. Absent: respiratory distress, wheezes, rales, rhonchi, stridor Cardiovascular Exam: Present: normal rhythm, tachycardia, normal heart sounds. Absent: systolic murmur, diastolic murmur, rubs, gallop, clicks GI/Abdominal exam: Present: soft, normal bowel sounds. Absent: distended, tenderness, guarding, rebound, rigid Back exam: Present: normal inspection. Absent: CVA tenderness (R), CVA tenderness (L) Neurological exam: Present: alert, oriented X3, CN II-XII intact Psychiatric exam: Present: normal affect, normal mood Skin exam: Present: warm, dry, intact, normal color. Absent: rash Course Vital Signs 07/05/20 07/06/20 07/06/20 23:06 00:22 01:17 Temperature 98.8 F 97.7 F Pulse Rate 116 H 77 78 Respiratory 16 18 18 Rate Blood Pressure 97/60 115/67 111/60 O2 Sat by Pulse 97 97 98 Oximetry Medical Decision Making - Medical Decision Making 24 year-old female patient presents to the emergency department today for evaluation of vomiting, fever, body aches with pain worse over her left side of her abdomen. Physical examination did reveal left-sided abdominal tenderness. Labs reviewed and did reveal white blood cell count of 15.7 with a neutrophil count of 14.2. Urinalysis did show evidence for urinary tract infection with positive nitrites and greater than [address] abdomen and pelvis was obtained and show evidence for a distal left ureter stone measuring 2 mm, mild left sided hydronephrosis and hydroureter. There is also multiple calcifications in the pelvis. Given CT and lab findings are limited to the hospital with IV antibiotics. Consult urology. Dr. Mullally is accepting. - Lab Data Result diagrams: 07/05/20 23:50 07/05/20 23:50 Lab Results 07/05/20 07/05/20 07/05/20 Range/Units 23:50 23:50 23:50 WBC 15.7 H (3.8-10.6) k/uL RBC 4.26 (3.80-5.40) m/uL Hgb 13.4 (11.4-16.0) gm/dL Hct 39.0 (34.0-46.0) % MCV 91.4 (80.0-100.0) fL MCH 31.4 (25.0-35.0) pg MCHC 34.4 (31.0-37.0) g/dL RDW 12.2 (11.5-15.5) % Plt Count 120 L (150-450) k/uL MPV 9.1 Neutrophils % 91 % Lymphocytes % 3 % Monocytes % 6 % Eosinophils % 0 % Basophils % 0 % Neutrophils # 14.2 H (1.3-7.7) k/uL Lymphocytes # 0.5 L (1.0-4.8) k/uL Monocytes # 0.9 (0-1.0) k/uL Eosinophils # 0.1 (0-0.7) k/uL Basophils # 0.0 (0-0.2) k/uL Sodium 136 L (137-145) mmol/L Potassium 3.5 (3.5-5.1) mmol/L Chloride 103 (98-107) mmol/L Carbon Dioxide 24 (22-30) mmol/L Anion Gap 9 mmol/L BUN 16 (7-17) mg/dL Creatinine 0.79 (0.52-1.04) mg/dL Est GFR (CKD-EPI)AfAm >90 (>60 ml/min/1.73 sqM) Est GFR (CKD-EPI)NonAf >90 (>60 ml/min/1.73 sqM) Glucose 121 H (74-99) mg/dL Plasma Lactic Acid Bob (0.7-2.0) mmol/L Calcium 9.4 (8.4-10.2) mg/dL Total Bilirubin 0.7 (0.2-1.3) mg/dL AST 29 (14-36) U/L ALT 33 (4-34) U/L Alkaline Phosphatase 70 (38-126) U/L Total Protein 7.2 (6.3-8.2) g/dL Albumin 4.2 (3.5-5.0) g/dL Lipase 19 L (23-300) U/L Urine Color Yellow Urine Appearance Turbid H (Clear) Urine pH 5.5 (5.0-8.0) Ur Specific [place] 1.023 (1.001-1.035) Urine Protein 2+ H (Negative) Urine Glucose (UA) Negative (Negative) Urine Ketones Negative (Negative) Urine Blood Moderate H (Negative) Urine Nitrite Positive H (Negative) Urine Bilirubin Negative (Negative) Urine Urobilinogen <2.0 (<2.0) mg/dL Ur Leukocyte Esterase Large H (Negative) Urine RBC 20 H (0-5) /hpf Urine WBC >182 H (0-5) /hpf Urine WBC Clumps Many H (None) /hpf Ur Squamous Epith Cells 5 H (0-4) /hpf Urine Bacteria Moderate H (None) /hpf Hyaline Casts 8 H (0-2) /lpf Urine Mucus Many H (None) /hpf Coronavirus (PCR) (Not Detectd) 07/05/20 07/05/20 Range/Units 23:50 23:50 WBC (3.8-10.6) k/uL RBC (3.80-5.40) m/uL Hgb (11.4-16.0) gm/dL Hct (34.0-46.0) % MCV (80.0-100.0) fL MCH (25.0-35.0) pg MCHC (31.0-37.0) g/dL RDW (11.5-15.5) % Plt Count (150-450) k/uL MPV Neutrophils % % Lymphocytes % % Monocytes % % Eosinophils % % Basophils % % Neutrophils # (1.3-7.7) k/uL Lymphocytes # (1.0-4.8) k/uL Monocytes # (0-1.0) k/uL Eosinophils # (0-0.7) k/uL Basophils # (0-0.2) k/uL Sodium (137-145) mmol/L Potassium (3.5-5.1) mmol/L Chloride (98-107) mmol/L Carbon Dioxide (22-30) mmol/L Anion Gap mmol/L BUN (7-17) mg/dL Creatinine (0.52-1.04) mg/dL Est GFR (CKD-EPI)AfAm (>60 ml/min/1.73 sqM) Est GFR (CKD-EPI)NonAf (>60 ml/min/1.73 sqM) Glucose (74-99) mg/dL Plasma Lactic Acid Bob 1.3 (0.7-2.0) mmol/L Calcium (8.4-10.2) mg/dL Total Bilirubin (0.2-1.3) mg/dL AST (14-36) U/L ALT (4-34) U/L Alkaline Phosphatase (38-126) U/L Total Protein (6.3-8.2) g/dL Albumin (3.5-5.0) g/dL Lipase (23-300) U/L Urine Color Urine Appearance (Clear) Urine pH (5.0-8.0) Ur Specific [place] (1.001-1.035) Urine Protein (Negative) Urine Glucose (UA) (Negative) Urine Ketones (Negative) Urine Blood (Negative) Urine Nitrite (Negative) Urine Bilirubin (Negative) Urine Urobilinogen (<2.0) mg/dL Ur Leukocyte Esterase (Negative) Urine RBC (0-5) /hpf Urine WBC (0-5) /hpf Urine WBC Clumps (None) /hpf Ur Squamous Epith Cells (0-4) /hpf Urine Bacteria (None) /hpf Hyaline Casts (0-2) /lpf Urine Mucus (None) /hpf Coronavirus (PCR) Not Detected (Not Detectd) - Radiology Data Radiology results: report reviewed, image reviewed DT abdomen and pelvis is obtained without contrast. Report was reviewed in its entirety. Impression by Dr. Nma shows mild left hydroureter nephrosis which extends to multiple calcifications in the bilateral pelvis. A distal left ureteral stone is suspected. Nonobstructive 2 mm nephrolithiasis in the anterior pole of left kidney is also noted. Disposition Clinical Impression: Kidney stone on left side, UTI (urinary tract infection) Disposition: ADMITTED IP TO THIS [facility] Condition: Serious Referrals: None,Stated [Primary Care Provider] - 1-2 days Decision to Admit Reason: Admit from EC Decision Date: 07/06/20 Decision Time: 01:32
[2020-07-06 00:12] LABS: Appearance,Urine Turbid (Clear); Bacteria,Urine Moderate /hpf; Bilirubin,Urine Negative (Negative); Blood,Urine Moderate (Negative); Color,Urine Yellow; Glucose,Urine (UA) Negative (Negative); Hyaline Casts,Urine 8 /lpf (0-2); Ketones,Urine Negative (Negative); Leukocyte Esterase,Urine Large (Negative); Mucus,Urine Many /hpf; Nitrite,Urine Positive (Negative); PH, Urine 5.5 (5.0-8.0); Protein,Urine 2+ (Negative); RBC,Urine 20 /hpf (0-5); Specific Gravity,Urine 1.023 (1.001-1.035); Squamous Epithelial Cell,Urine 5 /hpf (0-4); Urobilinogen,Urine <2.0 mg/dL (<2.0); WBC,Urine >182 /hpf (0-5)
[2020-07-06 00:16] LABS: ALT 33 U/L (4-34); AST 29 U/L (14-36); African American GFR (CKD) >90 (>60 ml/min/1.73 sqM); Albumin 4.2 g/dL (3.5-5.0); Alkaline Phosphatase 70 U/L (38-126); Anion Gap 9 mmol/L; Blood Urea Nitrogen 16 mg/dL (7-17); Calcium 9.4 mg/dL (8.4-10.2); Carbon Dioxide 24 mmol/L (22-30); Chloride 103 mmol/L (98-107); Glucose 121 mg/dL (74-99); Lipase 19 U/L (23-300); Non-African American GFR(CKD) >90 (>60 ml/min/1.73 sqM); Potassium 3.5 mmol/L (3.5-5.1); Sodium 136 mmol/L (137-145); Total Bilirubin 0.7 mg/dL (0.2-1.3); Total Protein 7.2 g/dL (6.3-8.2)
[2020-07-06 00:24] LABS: Basophils % (A) 0 %; Eosinophils # (A) 0.1 k/uL (0-0.7); Eosinophils % (A) 0 %; HGB 13.4 gm/dL (11.4-16.0); Lymphocytes # (A) 0.5 k/uL (1.0-4.8); Lymphocytes % (A) 3 %; MCH 31.4 pg (25.0-35.0); MCHC 34.4 g/dL (31.0-37.0); MCV 91.4 fL (80.0-100.0); Mean Platelet Volume 9.1; Monocytes # (A) 0.9 k/uL (0-1.0); Monocytes % (A) 6 %; Neutrophils # (A) 14.2 k/uL (1.3-7.7); Neutrophils % (A) 91 %; Platelet Count 120 k/uL (150-450); RBC 4.26 m/uL (3.80-5.40); RDW 12.2 % (11.5-15.5); WBC 15.7 k/uL (3.8-10.6)
[2020-07-06] MEDS ORDERED: cefTRIAXone IN SWFI 1,000 MG/10 ML SYRINGE IVP STA ×2 (00:25→00:52)
[2020-07-06] MEDS ORDERED: diphenhydrAMINE 50 MG/ML 1 ML VIAL IVP STA (00:53)
[2020-07-06] MEDS ORDERED: METOCLOPRAMIDE 5 MG/ML 2 ML VIAL IVP STA (00:53)
[2020-07-06] MEDS ORDERED: HYDROmorphone 1 MG/ML 1 ML SYRINGE IVP STA (00:53)
--- NOTE | 2020-07-06 01:16 | CT ---
EXAM: CT Abdomen and Pelvis Without Intravenous Contrast CLINICAL HISTORY: ITS.REASON CT Reason: Flank pain; fever, vomiting TECHNIQUE: Axial computed tomography images of the abdomen and pelvis without intravenous contrast. CTDI is 8.4 mGy and DLP is 469.3 mGy-cm. This CT exam was performed using one or more of the following dose reduction techniques: automated exposure control, adjustment of the mA and/or kV according to patient size, and/or use of iterative reconstruction technique. COMPARISON: No relevant prior studies available. FINDINGS: Limitations: There is respiratory artifact which degrades image quality on multiple image slices. Lung bases: Unremarkable. No mass. No consolidation. ABDOMEN: Liver: Unremarkable. Gallbladder and bile ducts: Unremarkable. No calcified stones. No ductal dilation. Pancreas: Unremarkable. No ductal dilation. Spleen: Unremarkable. No splenomegaly. Adrenals: Unremarkable. No mass. Kidneys and ureters: There is mild left hydroureteronephrosis which extends to multiple calcifications in the bilateral pelvis. Subtle nephrocalcinosis suggested involving several right renal. Mins. A 2 mm nonobstructive nephrolithiasis is noted involving the inferior pole of the left kidney. Stomach and bowel: Evaluation of the bowel mucosa is slightly limited without contrast; however, no definite focal asymmetry suggested. No evidence for bowel obstruction. PELVIS: Appendix: No findings to suggest acute appendicitis. Bladder: Unremarkable. No stones. Reproductive: Questionable follicular changes involving the right adnexa. The unenhanced uterus is grossly unremarkable. ABDOMEN and PELVIS: Intraperitoneal space: Unremarkable. No free air. No significant fluid collection. Bones/joints: No acute fracture. No dislocation. Soft tissues: Unremarkable. Vasculature: There are multiple presumed phleboliths involving the pelvis bilaterally. The aorta is normal in caliber. No abdominal aortic aneurysm. Lymph nodes: Unremarkable. No enlarged lymph nodes. IMPRESSION: There is mild left hydroureteronephrosis which extends to multiple calcifications in the bilateral pelvis. A distal left ureteral stone is suspected. A nonobstructive 2 mm nephrolithiasis in the inferior pole the left kidney is also noted.
[2020-07-06] MEDS ORDERED: HYDROmorphone 0.5 MG/0.5 ML SYRINGE IVP PRN (01:34)
[2020-07-06] MEDS ORDERED: NALOXONE 0.4 MG/ML 1 ML VIAL IV PRN (01:34)
[2020-07-06] MEDS: KETOROLAC 15 MG/ML 1 ML VIAL IVP PRN ×3 (05:39→21:28)
[2020-07-06] MEDS: MORPHINE SULFATE 4 MG/ML SYRINGE IVP PRN ×4 (06:19→20:37)
[2020-07-06] MEDS: SODIUM CHLORIDE 0.9% 1,000 ML IV SCH ×2 (06:21→21:25)
--- NOTE | 2020-07-06 07:37 | P.GSCN ---
History of Present Illness Consult date: 07/06/20 Reason for Consult: Acute left pyelonephritis Requesting physician: eRmi Edwards History of present illness: The patient is a 24-year-old white female with no prior history of urolithiasis. She presents with a three-day history of severe left-sided abdominal and flank pain, associated with fever, chills, nausea, and vomiting. She has been treated for 2-3 UTIs annually, but has no prior history of pyelonephritis. Review of Systems - Constitutional Reports fever - Gastrointestinal Reports nausea, Reports vomiting - Genitourinary Genitourinary: Denies dysuria, Denies hematuria Past Medical History Past Medical History: Hypertension Additional Past Medical History / Comment(s): Patient has had 4 spontaneous vaginal deliveries ranging from 8 lbs. 9 oz.-9 lbs. 6 oz. History of HTN - states she took antihypertensives 3 years ago and just stopped taking them. History of Any Multi-Drug Resistant Organisms: None Reported Past Surgical History: Tubal Ligation Past Anesthesia/Blood Transfusion Reactions: No Reported Reaction Additional Past Anesthesia/Blood Transfusion Reaction / Comm: n o hx. Past Psychological History: No Psychological Hx Reported Smoking Status: Current every day smoker Past Alcohol Use History: None Reported Additional Past Alcohol Use History / Comment(s): Smokes 1/2 PPD. Past Drug Use History: None Reported - Past Family History Brother(s) Additional Family Medical History / Comment(s): Hemophilia Father Family Medical History: No Reported History Medications and Allergies Home Medications Medication Instructions Recorded Confirmed Type Acetaminophen Tab [Tylenol Tab] 650 mg PO Q6H PRN 09/07/18 09/07/18 History Calcium Carbonate [Tums] 500 mg PO TID PRN 09/07/18 09/07/18 History Ibuprofen [Motrin Ib] 400 mg PO Q6HR PRN 09/07/18 09/07/18 History Ketorolac [Toradol] 10 mg PO Q6HR PRN #12 tab 09/07/18 Rx Allergies Allergy/AdvReac Type Severity Reaction Status Date / Time No Known Allergies Allergy Verified 07/06/20 04:22 Surgical - Exam Vital Signs Temp Pulse Resp BP Pulse Ox 98.8 F 116 H 16 97/60 97 07/05/20 23:06 07/05/20 23:06 07/05/20 23:06 07/05/20 23:06 07/05/20 23:06 - General well developed, well nourished, moderate distress - Neck no masses, trachea midline - Respiratory normal respiratory effort - Abdomen Abdomen: soft, tender (Left-sided tenderness to palpation), no masses, no guard ing, no rigid, no rebound, no distended - Psychiatric oriented to time, oriented to person, oriented to place, speech is normal, memory intact Results - Labs 07/05/20 23:50 07/05/20 23:50 Abnormal Lab Results - Last 24 Hours (Table) 07/05/20 07/05/20 07/05/20 Range/Units 23:50 23:50 23:50 WBC 15.7 H (3.8-10.6) k/uL Plt Count 120 L (150-450) k/uL Neutrophils # 14.2 H (1.3-7.7) k/uL Lymphocytes # 0.5 L (1.0-4.8) k/uL Sodium 136 L (137-145) mmol/L Glucose 121 H (74-99) mg/dL Lipase 19 L (23-300) U/L Urine Appearance Turbid H (Clear) Urine Protein 2+ H (Negative) Urine Blood Moderate H (Negative) Urine Nitrite Positive H (Negative) Ur Leukocyte Esterase Large H (Negative) Urine RBC 20 H (0-5) /hpf Urine WBC >182 H (0-5) /hpf Urine WBC Clumps Many H (None) /hpf Ur Squamous Epith Cells 5 H (0-4) /hpf Urine Bacteria Moderate H (None) /hpf Hyaline Casts 8 H (0-2) /lpf Urine Mucus Many H (None) /hpf Diabetes panel 07/05/20 Range/Units 23:50 Sodium 136 L (137-145) mmol/L Potassium 3.5 (3.5-5.1) mmol/L Chloride 103 (98-107) mmol/L Carbon Dioxide 24 (22-30) mmol/L BUN 16 (7-17) mg/dL Creatinine 0.79 (0.52-1.04) mg/dL Glucose 121 H (74-99) mg/dL Calcium 9.4 (8.4-10.2) mg/dL AST 29 (14-36) U/L ALT 33 (4-34) U/L Alkaline Phosphatase 70 (38-126) U/L Total Protein 7.2 (6.3-8.2) g/dL Albumin 4.2 (3.5-5.0) g/dL Calcium panel 07/05/20 Range/Units 23:50 Calcium 9.4 (8.4-10.2) mg/dL Albumin 4.2 (3.5-5.0) g/dL Pituitary panel 07/05/20 Range/Units 23:50 Sodium 136 L (137-145) mmol/L Potassium 3.5 (3.5-5.1) mmol/L Chloride 103 (98-107) mmol/L Carbon Dioxide 24 (22-30) mmol/L BUN 16 (7-17) mg/dL Creatinine 0.79 (0.52-1.04) mg/dL Glucose 121 H (74-99) mg/dL Calcium 9.4 (8.4-10.2) mg/dL Adrenal panel 07/05/20 Range/Units 23:50 Sodium 136 L (137-145) mmol/L Potassium 3.5 (3.5-5.1) mmol/L Chloride 103 (98-107) mmol/L Carbon Dioxide 24 (22-30) mmol/L BUN 16 (7-17) mg/dL Creatinine 0.79 (0.52-1.04) mg/dL Glucose 121 H (74-99) mg/dL Calcium 9.4 (8.4-10.2) mg/dL Total Bilirubin 0.7 (0.2-1.3) mg/dL AST 29 (14-36) U/L ALT 33 (4-34) U/L Alkaline Phosphatase 70 (38-126) U/L Total Protein 7.2 (6.3-8.2) g/dL Albumin 4.2 (3.5-5.0) g/dL - Imaging CT scan - abdomen: report reviewed, image reviewed Assessment and Plan (1) Acute pyelonephritis Current Visit: Yes Status: Acute Code(s): N10 - ACUTE PYELONEPHRITIS SNOMED Code(s): 02134854 Plan: The patient's clinical condition is consistent with acute left pyelonephritis. She is currently being treated with Rocephin but continues to experience pain which she states is greater than childbirth. Computed tomography scan shows evidence of left hydroureteronephrosis. She has multiple pelvic phleboliths, and it is just difficult to determine whether or not she has an obstructing left distal ureteral calculus. I have suggested she undergo cystoscopy with left retrograde pyelogram. If the presence of a ureteral calculus is confirmed, a ureteral stent will be placed. The rationale for this approach has been reviewed in detail. I have also explained potential risks, which include anesthesia, inability to successfully place a stent, and ureteral injury. Time with Patient: Greater than 30
--- NOTE | 2020-07-06 08:38 | HP ---
HISTORY AND PHYSICAL A 24-year-old white female came in with fever and vomiting x2 days with severe chills and body aches, abdominal muscles are so sore from vomiting. She is shaking due to severe pain and pain medicine is not working. Dilaudid did not work. She dysuria, frequency or urgency. Denies being . She has had a tubal ligation. Denies alcohol or drug use or chronic medications. Took some Tylenol at home. Came in with severe pain, nausea, vomiting. HOME MEDICATIONS: Home medications include: 1. Toradol. 2. Tums. 3. Tylenol. ALLERGIES: Negative. REVIEW OF SYSTEMS: Fourteen-point review of systems otherwise negative. She has had 4 spontaneous vaginal deliveries. PAST SURGICAL HISTORY: History of tubal ligation. FAMILY HISTORY: Brother hemophilia. Father unknown. PHYSICAL EXAMINATION: Well-developed, well-nourished white female in no acute distress. VITAL SIGNS: Temperature 98.8, pulse was near 100 to 120 in the ER, respiratory rate 14 to 16, blood pressure is 97/69 and 97% on room air. HEENT: Normocephalic, atraumatic. LUNGS: Clear. CARDIOVASCULAR: S1, S2. GI: She has normal bowel sounds. Tenderness to palpation with guarding diffusely in the lower abdomen. BACK: Normal inspection. Negative CVA tenderness. NEUROLOGIC: Cranial nerves are intact. PSYCH: Fair mood and affect. Appears in lot of pain on her facial grimacing. SKIN: Absent rashes. Currently temperature 97.7, pulse 77 to 78, respiratory rate 16, blood pressure 111/60, O2 of 98. ASSESSMENT: Acute abdominal pain, left side of her abdomen, suspect pyelonephritis. Elevated white count. Large amount of white cells over 182, positive nitrates. CT abdomen shows a distal ureteral stone 2 mm. Mild left hydronephrosis, hydroureter. Urology and Infectious Disease consults. Continue Rocephin. Await for urine cultures. MMODL / IJN: [id number] /
[2020-07-06] MEDS: ONDANSETRON 4 MG/2 ML VIAL IVP PRN (09:54)
[2020-07-06] MEDS ORDERED: IV FLUID CONTINUATION 300 ML IV ONE (11:06)
[2020-07-06] MEDS ORDERED: DEXAMETHASONE SOD PHOSPHATE 4 MG/ML 1 ML VIAL IVP ONE (11:15)
[2020-07-06] MEDS ORDERED: ACETAMINOPHEN IV (For NPO) 1,000 MG/100 ML VIAL IVPB ONE (11:15)
[2020-07-06] MEDS ORDERED: SCOPOLAMINE 1.5MG/72HR PATCH TRANSDERM ONE (11:15)
[2020-07-06] MEDS ORDERED: SODIUM CHLORIDE 0.9% 1,000 ML IV ONE (11:59)
[2020-07-06] MEDS ORDERED: SUCCINYLCHOLINE CHLORIDE 100 MG/5 ML SYR IV ONE (12:14)
[2020-07-06] MEDS ORDERED: PHENYLEPHRINE 10 MG/ML VIAL ONE (12:14)
[2020-07-06] MEDS ORDERED: LIDOCAINE 1% INJ 10MG/ML (20 ML MDV) ONE (12:14)
[2020-07-06] MEDS ORDERED: MIDAZOLAM 2 MG/2 ML VIAL ONE (12:14)
[2020-07-06] MEDS ORDERED: PROPOFOL 10 MG/ML 20 ML VIAL IV ONE (12:14)
[2020-07-06] MEDS ORDERED: ROCURONIUM 10 MG/ML (10 ML VIAL) IV ONE (12:14)
[2020-07-06] MEDS ORDERED: fentaNYL (PF) 50 MCG/ML 2 ML AMP ONE (12:14)
[2020-07-06] MEDS ORDERED: IOPAMIDOL-370 50ML BTL MISCELLANE ONE (12:37)
--- NOTE | 2020-07-06 13:18 | P.OP ---
Date of Procedure: 07/06/20 Preoperative Diagnosis: Left hydronephrosis, acute left pyelonephritis Postoperative Diagnosis: Same Procedure(s) Performed: Cystoscopy, left retrograde pyelogram, left ureteral stent insertion Anesthesia: BIJALA Surgeon: Isaac Perez Estimated Blood Loss (ml): 0 IV fluids (ml): 800 Pathology: none sent Condition: stable Disposition: PACU Indications for Procedure: The patient is a 24-year-old white female admitted for treatment of acute left pyelonephritis. CT scan shows evidence of left hydroureteronephrosis. She has multiple pelvic phleboliths, and it is thus impossible to determine whether or not she has a distal ureteral calculus. Operative Findings: Left hydroureteronephrosis. No calculi seen, but peristalsis appears limited. Description of Procedure: The patient was taken to the operating room and placed in the dorsolithotomy position, with legs supported in Jake stirrups. The external genitalia was prepped and draped sterilely. The 30 lens was used to introduce the 22-Macedonian Stortz cystoscopic sheath through the urethra and into the bladder under direct vision. The bladder was examined in its entirety. Both ureteral orifices were of normal anatomic location and configuration, but no urine was seen to efflux from them. No tumors or foreign bodies were seen. Patchy erythema consistent with cystitis was noted. Using an 8-Macedonian cone-tipped catheter, a left retrograde pyelogram was performed in standard fashion. The left distal ureter appeared normal in caliber. However, dilation of the proximal two thirds of the ureter was noted, along with mild left hydronephrosis. The system was observed on fluoroscopy. Although no calculi were seen, peristalsis was weak and there appeared to be stasis of contrast. It was thus decided that the patient would benefit from placement of a left ureteral stent. A 0.035 inch Glidewire was passed through the cystoscope. The left ureteral orifice was cannulated, and the Glidewire was slowly advanced up to the renal pelvis. A 26 cm, 6-Macedonian double-J ureteral stent was placed over the wire. Proper stent positioning was verified fluoroscopically and endoscopically. No urine was observed to drain through the stent. The bladder was emptied and the cystoscope removed. The patient tolerated the procedure well was taken to the recovery room in stable condition.
--- NOTE | 2020-07-06 13:32 | FL ---
Fluoroscopy INDICATION: Pain FINDINGS: Fluoroscopy time: 1 minute 54 seconds. Images obtained: 5. IMPRESSIONS: 1. Documentation of fluoroscopy.
[2020-07-06] MEDS ORDERED: SODIUM CHLORIDE 0.9% 500 ML 500 ML IV ONE (14:48)
[2020-07-06] MEDS: TAMSULOSIN 0.4 MG CAP.ER.24H PO SCH (15:03)
[2020-07-06] MEDS: CEFEPIME 2 GM in SODIUM CHLORIDE 0.9% 100 ML IVPB SCH (21:24)
--- NOTE | 2020-07-06 22:45 | CONS ---
CONSULTATION DATE OF SERVICE: 07/06/2020 REASON FOR CONSULTATION: Sepsis. HISTORY OF PRESENT ILLNESS: The patient is a 24-year-old female presenting to the ER last night for evaluation of left-sided flank and abdominal pain along with vomiting. The patient's symptoms had been going on for about 3 days before presentation to the hospital. The patient describes it starting initially with sudden onset of pain to the left flank area, sharp, excruciating, almost 10, and she did have multiple episodes of vomiting. The patient subsequently had some relief, but afterwards continued to have these symptoms, for which the patient presented to the hospital. The patient also started running a fever. Denies having any diarrhea. No chest pain or shortness of breath or cough. On presentation to the hospital the patient initially was afebrile; however, she did spike a fever of 102 degrees Fahrenheit this afternoon and morning. The patient also has a white count of 15.7 and did have significantly positive UA. Rodriguez PCR was negative. Patient's CT of abdomen and pelvis shows evidence of left-sided hydronephrosis. The patient was taken to the OR and the patient is status post cystoscopy with left retrograde pyelogram and left ureteral stent insertion. The patient was started on Rocephin with the fever and a concern for sepsis. Infectious Disease was consulted for further management of antibiotic therapy. REVIEW OF SYSTEMS: Positive points have been mentioned in the HPI. Rest of the systems are negative. PAST MEDICAL HISTORY: Hypertension. PAST SURGICAL HISTORY: Tubal ligation. SOCIAL HISTORY: Patient is a current everyday smoker. No drinking or drug use. FAMILY HISTORY: Brother with history of hemophilia. ALLERGIES: NO KNOWN DRUG ALLERGIES. MEDICATIONS: The patient is currently on Rocephin 1 gram q.12 hours, Toradol, morphine sulfate, Narcan, Zofran, saline and Flomax. PHYSICAL EXAMINATION: Blood pressure 93/56, pulse of 60, temperature 98.4. T-max is 101. She is 98% on room air. General description is a young female lying in bed in no distress. No tachypnea or accessory muscle of respiration use. HEENT: Examination shows no pallor or scleral icterus. Oral mucous membrane is dry. No pharyngeal erythema or thrush. NECK: Trachea is central. No thyromegaly. LUNGS: Unlabored breathing. Clear to auscultation anteriorly. No wheeze or crackle. HEART: S1, S2. Regular rate and rhythm. ABDOMEN: Soft. Mild left flank tenderness. No guarding or rigidity. No organomegaly. EXTREMITIES: No edema of the feet. SKIN EXAMINATION: No rash or mass palpable. Neurologically the patient is awake and alert, oriented x3. Mood and affect normal. LABS: Hemoglobin is 13.4, white count 15.7, BUN of 16, creatinine 0.79. Liver enzymes are normal. Urine is positive. Rodriguez PCR was negative. Cultures are currently pending. DIAGNOSTIC IMPRESSION AND PLAN: Patient admitted to hospital with sepsis in this patient who did have a fever, elevated white count. Source is likely left-sided pyelonephritis/complicated UTI in this patient who is status post cystoscopy and ureteral stent placement. Will need to cover for a Gram-negative as the likely pathogen. PLAN: 1. Discontinue Rocephin. 2. Start the patient on cefepime 2 grams q.12 hours. 3. IV fluids. 4. Will follow clinical condition and culture to further adjust medication if needed. Thank you for this consultation. Will follow this patient along with you. MMODL / IJN: [id number] /
[2020-07-07] MEDS: MORPHINE SULFATE 4 MG/ML SYRINGE IVP PRN ×2 (00:36→05:25)
[2020-07-07] MEDS: KETOROLAC 15 MG/ML 1 ML VIAL IVP PRN ×4 (03:41→22:23)
[2020-07-07 06:24] LABS: Basophils % (A) 0 %; Eosinophils % (A) 0 %; HCT 30.2 % (34.0-46.0); Lymphocytes # (A) 0.8 k/uL (1.0-4.8); Lymphocytes % (A) 8 %; MCH 31.4 pg (25.0-35.0); MCHC 33.1 g/dL (31.0-37.0); MCV 94.9 fL (80.0-100.0); Mean Platelet Volume 9.6; Monocytes # (A) 0.7 k/uL (0-1.0); Monocytes % (A) 6 %; Neutrophils # (A) 9.1 k/uL (1.3-7.7); Neutrophils % (A) 83 %; Platelet Count 104 k/uL (150-450); RBC 3.18 m/uL (3.80-5.40); RDW 13.3 % (11.5-15.5); WBC 10.9 k/uL (3.8-10.6)
[2020-07-07 06:26] LABS: ALT 32 U/L (4-34); AST 24 U/L (14-36); African American GFR (CKD) >90 (>60 ml/min/1.73 sqM); Albumin 2.9 g/dL (3.5-5.0); Alkaline Phosphatase 65 U/L (38-126); Anion Gap 3 mmol/L; Blood Urea Nitrogen 22 mg/dL (7-17); Calcium 8.4 mg/dL (8.4-10.2); Carbon Dioxide 26 mmol/L (22-30); Chloride 107 mmol/L (98-107); Glucose 102 mg/dL (74-99); Non-African American GFR(CKD) >90 (>60 ml/min/1.73 sqM); Potassium 4.1 mmol/L (3.5-5.1); Sodium 136 mmol/L (137-145); Total Bilirubin 0.4 mg/dL (0.2-1.3); Total Protein 5.4 g/dL (6.3-8.2)
[2020-07-07] MEDS ORDERED: HYDROmorphone 1 MG/ML 1 ML SYRINGE IVP STA (07:49)
[2020-07-07] MEDS: TAMSULOSIN 0.4 MG CAP.ER.24H PO SCH (08:02)
[2020-07-07] MEDS: SODIUM CHLORIDE 0.9% 1,000 ML IV SCH ×2 (08:02→19:59)
[2020-07-07] MEDS: CEFEPIME 2 GM in SODIUM CHLORIDE 0.9% 100 ML IVPB SCH ×2 (08:02→19:58)
[2020-07-07] MEDS: DOCUSATE 100 MG CAP PO SCH ×2 (09:41→19:59)
[2020-07-07] MEDS: MORPHINE SULFATE 2 MG/ML SYRINGE IVP PRN ×2 (09:44→09:46)
--- NOTE | 2020-07-07 11:03 | P.PN ---
Subjective Progress Note Date: 07/07/20 HISTORY OF PRESENT ILLNESS This is a 24-year-old female who presented to the hospital for sepsis and left sided pyelonephritis and urinary tract infection. Patient is status post cystoscopy and ureteral stent placement. Patient is currently on cefepime 2 g IV piggyback every 12 hours. Patient states that she continues to have pain including dysuria. Nausea and vomiting improved with scopolamine patch. Patient has been afebrile. WBC 10.9, creatinine 0.73. Urine culture is positive for gram-negative bacilli. Blood culture no growth at 24 hours. PHYSICAL EXAMINATION Gen: This is a 24-year-old female. Patient is resting in bed. HEENT: Head is atraumatic, normocephalic. Pupils equal, round. Sclerae is anicteric. NECK: Supple. No JVD. No lymphadenopathy. LUNGS: Clear to auscultation. No wheezes or rhonchi. No intercostal retractions. HEART: Regular rate and rhythm. No murmur. ABDOMEN: Soft. Bowel sounds are present. No masses. No tenderness. Mild left flank tenderness EXTREMITIES: No pedal edema. No calf tenderness. NEUROLOGICAL: Patient is awake, alert and oriented x3. ASSESSMENT Sepsis and left-sided pyelonephritis PLAN Continue cefepime 2 g IV piggyback every 12 hours Await urine culture Further recommendations as patient progresses. The above dictated assessment and findings were discussed with Dr. Beavers. The impression and plan of care have been directed as dictated. Jael Sanches nurse practitioner acting as scribe for Dr. Beavers. Objective - Vital Signs Vital signs: Vital Signs Temp 97.9 F 07/07/20 07:55 Pulse 70 07/07/20 07:55 Resp 18 07/07/20 07:55 BP 100/63 07/07/20 07:55 Pulse Ox 97 07/07/20 07:55 Intake & Output 07/06/20 07/07/20 07/07/20 18:59 06:59 18:59 Intake Total 1200 500 Output Total 750 500 200 Balance 450 0 -200 Intake: IV 1200 Oral 500 Output: Urine 750 500 200 Estimated Blood Loss 0 Other: Voiding Method Toilet Toilet Toilet # Voids 1 1 1 - Labs CBC & Chem 7: 07/07/20 05:44 07/07/20 05:44 Labs: Abnormal Lab Results - Last 24 Hours (Table) 07/07/20 07/07/20 Range/Units 05:44 05:44 WBC 10.9 H (3.8-10.6) k/uL RBC 3.18 L (3.80-5.40) m/uL Hgb 10.0 L D (11.4-16.0) gm/dL Hct 30.2 L (34.0-46.0) % Plt Count 104 L (150-450) k/uL Neutrophils # 9.1 H (1.3-7.7) k/uL Lymphocytes # 0.8 L (1.0-4.8) k/uL Sodium 136 L (137-145) mmol/L BUN 22 H (7-17) mg/dL Glucose 102 H (74-99) mg/dL Total Protein 5.4 L (6.3-8.2) g/dL Albumin 2.9 L (3.5-5.0) g/dL Microbiology - Last 24 Hours (Table) 07/05/20 23:50 Urine Culture - Preliminary Urine,Clean Catch
[2020-07-07] MEDS ORDERED: HYDROmorphone 1 MG/ML 1 ML SYRINGE IM PRN (13:33)
[2020-07-07] MEDS: HYDROmorphone 1 MG/ML 1 ML SYRINGE IVP PRN ×4 (13:41→23:00)
[2020-07-07] MEDS: ONDANSETRON 4 MG/2 ML VIAL IVP PRN (16:53)
[2020-07-07] MEDS: ACETAMINOPHEN TAB 325 MG TAB PO PRN ×2 (17:42→22:27)
--- NOTE | 2020-07-07 23:30 | PN ---
PROGRESS NOTE This is a 24-year-old white female with pyelonephritis, severe pain in left lower quadrant, with Dilaudid, off morphine. Continue with IV antibiotics. Await Dr. Beavers's recommendation for long-term antibiotics. Pain control in the meantime. Stent was placed but did not take her pain away. Nausea and vomiting improved with scopolamine patch. Urine culture positive for Gram-negative bacilli. Blood cultures negative. Continue on cefepime. Cardiovascular: S1, S2. Lungs clear. GI: Tenderness to palpation in left lower quadrant. ASSESSMENT: 1. Sepsis. 2. Left-sided pyelonephritis. Cefepime 2 grams IV piggyback q.12 hours. Await urine cultures. Respiratory rate 16-18, blood pressure is 100/63, O2 saturation 97%. White count is 10.9, hemoglobin is 10, platelets 104. Prognosis is guarded. Follow up in next 24 to 48 hours. Possible discharge if improved and urine cultures back. MMODL / IJN: [id number] /
[2020-07-08] MEDS: HYDROmorphone 1 MG/ML 1 ML SYRINGE IVP PRN ×8 (01:54→22:58)
[2020-07-08] MEDS: KETOROLAC 15 MG/ML 1 ML VIAL IVP PRN ×4 (04:32→22:56)
[2020-07-08] MEDS: ACETAMINOPHEN TAB 325 MG TAB PO PRN (06:45)
[2020-07-08 07:35] LABS: Basophils % (A) 0 %; Eosinophils % (A) 1 %; HCT 30.8 % (34.0-46.0); Lymphocytes # (A) 0.7 k/uL (1.0-4.8); Lymphocytes % (A) 16 %; MCHC 32.3 g/dL (31.0-37.0); MCV 95.8 fL (80.0-100.0); Mean Platelet Volume 9.6; Monocytes # (A) 0.3 k/uL (0-1.0); Monocytes % (A) 7 %; Neutrophils # (A) 3.1 k/uL (1.3-7.7); Neutrophils % (A) 73 %; RBC 3.21 m/uL (3.80-5.40); RDW 13.4 % (11.5-15.5); WBC 4.2 k/uL (3.8-10.6)
[2020-07-08 07:37] LABS: ALT 245 U/L (4-34); AST 225 U/L (14-36); African American GFR (CKD) >90 (>60 ml/min/1.73 sqM); Albumin 2.8 g/dL (3.5-5.0); Alkaline Phosphatase 105 U/L (38-126); Anion Gap 2 mmol/L; Blood Urea Nitrogen 15 mg/dL (7-17); Calcium 8.3 mg/dL (8.4-10.2); Carbon Dioxide 26 mmol/L (22-30); Chloride 107 mmol/L (98-107); Glucose 97 mg/dL (74-99); Non-African American GFR(CKD) >90 (>60 ml/min/1.73 sqM); Potassium 3.9 mmol/L (3.5-5.1); Sodium 135 mmol/L (137-145); Total Bilirubin 0.5 mg/dL (0.2-1.3); Total Protein 5.3 g/dL (6.3-8.2)
[2020-07-08] MEDS ORDERED: MAGNESIUM HYDROXIDE 2,400 MG/10 ML CUP PO PRN (08:06)
--- NOTE | 2020-07-08 08:08 | P.PN ---
Progress Note - Text Progress Note Date: 07/08/20 The patient continues to be febrile (101.7), and reports persistent left-sided pain. She also reports abdominal bloating. Urine culture shows gram-negative bacilli. Blood cultures are negative. She is currently receiving cefepime. I am concerned she may have an organism which is resistant to cefepime. I am hopeful that the urine culture will be completed later today. She is taking Colace, and milk of magnesia has been ordered.
[2020-07-08] MEDS: TAMSULOSIN 0.4 MG CAP.ER.24H PO SCH (08:15)
[2020-07-08] MEDS: CEFEPIME 2 GM in SODIUM CHLORIDE 0.9% 100 ML IVPB SCH ×2 (08:15→21:06)
[2020-07-08] MEDS: DOCUSATE 100 MG CAP PO SCH ×2 (08:15→21:09)
[2020-07-08 09:01] LABS: Platelet Count 87 k/uL (150-450)
[2020-07-08] MEDS: NICOTINE 21MG/24HR PATCH TRANSDERM SCH (09:46)
[2020-07-08] MEDS: ONDANSETRON 4 MG/2 ML VIAL IVP PRN ×2 (10:53→17:53)
[2020-07-08] MEDS: SODIUM CHLORIDE 0.9% 1,000 ML IV SCH (11:49)
--- NOTE | 2020-07-08 12:00 | P.PN ---
Subjective Progress Note Date: 07/08/20 HISTORY OF PRESENT ILLNESS This is a 24-year-old female who presented to the hospital for sepsis and left sided pyelonephritis and urinary tract infection. Patient is status post cystoscopy and ureteral stent placement. Patient is currently on cefepime 2 g IV piggyback every 12 hours. Patient states that she continues to have left-sided abdominal pain and flank pain. She states the whole left side is hurting her. She states she has occasional nausea. No vomiting. She complains of abdominal bloating. She continues to have hematuria. CBC is 4.2, hemoglobin 10, platelet count 87. Creatinine 0.75. Patient did have a jump in her liver function tests with AST of 225 and ALT 245. Attending has ordered a liver ultrasound and will change this to a full abdomen ultrasound to further evaluate renal system as well. Urine culture is still showing gram-negative bacilli. Blood cultures no growth at 48 hours. PHYSICAL EXAMINATION Gen: This is a 24-year-old female. Patient is resting in bed. HEENT: Head is atraumatic, normocephalic. Pupils equal, round. Sclerae is an icteric. NECK: Supple. No JVD. No lymphadenopathy. LUNGS: Clear to auscultation. No wheezes or rhonchi. No intercostal retractions. HEART: Regular rate and rhythm. No murmur. ABDOMEN: Soft. Bowel sounds are present. No masses. No tenderness. Mild left flank tenderness EXTREMITIES: No pedal edema. No calf tenderness. NEUROLOGICAL: Patient is awake, alert and oriented x3. ASSESSMENT Sepsis and left-sided pyelonephritis PLAN Continue cefepime 2 g IV piggyback every 12 hours Await urine culture Complete abdominal ultrasound to evaluate liver for elevated liver function tests and renal system. Further recommendations as patient progresses. The above dictated assessment and findings were discussed with Dr. Beavers. The impression and plan of care have been directed as dictated. Jael Sanches nurse practitioner acting as scribe for Dr. Beavers. Objective - Vital Signs Vital signs: Vital Signs Temp 99.1 F 07/08/20 10:28 Pulse 76 07/08/20 08:08 Resp 18 07/08/20 08:08 BP 100/64 07/08/20 08:08 Pulse Ox 96 07/08/20 08:08 Intake & Output 07/07/20 07/08/20 07/08/20 18:59 06:59 18:59 Intake Total 2350 240 Output Total 600 800 250 Balance 1750 -800 -10 Intake: Intake, IV Titration 850 Amount Cefepime 2 gm In Sodium 100 Chloride 0.9% 100 ml @ 25 mls/hr IVPB Q12HR [facility] Rx #:[id number] Sodium Chloride 0.9% 1, 750 000 ml @ 75 mls/hr IV . [id number] Rx#:[id number] Oral 1500 240 Output: Urine 600 800 250 Other: Voiding Method Toilet Toilet Toilet # Voids 1 1 - Labs CBC & Chem 7: 07/08/20 06:41 07/08/20 06:41 Labs: Abnormal Lab Results - Last 24 Hours (Table) 07/08/20 07/08/20 Range/Units 06:41 06:41 RBC 3.21 L (3.80-5.40) m/uL Hgb 10.0 L (11.4-16.0) gm/dL Hct 30.8 L (34.0-46.0) % Plt Count 87 L (150-450) k/uL Lymphocytes # 0.7 L (1.0-4.8) k/uL Sodium 135 L (137-145) mmol/L Calcium 8.3 L (8.4-10.2) mg/dL AST 225 H (14-36) U/L ALT 245 H (4-34) U/L Total Protein 5.3 L (6.3-8.2) g/dL Albumin 2.8 L (3.5-5.0) g/dL Microbiology - Last 24 Hours (Table) 07/06/20 08:24 Blood Culture - Preliminary Blood No Growth after 48 hours 07/05/20 23:50 Urine Culture - Preliminary Urine,Clean Catch Gram Neg Bacilli
--- NOTE | 2020-07-08 15:57 | US ---
EXAMINATION TYPE: US abdomen complete DATE OF EXAM: 07/08/2020 COMPARISON: NONE CLINICAL HISTORY: pyelonephritis, elevated liver enzymes. Infection for over 5 days, fever, left side d pain EXAM MEASUREMENTS: Liver Length: 21.4 cm Gallbladder Wall: 0.2 cm CBD: 0.4 cm Spleen: 16.8 cm Right Kidney: 13.6 x 5.0 x 4.1 cm Left Kidney: 13.0 x 6.4 x 4.9 cm Pancreas: wnl Liver: enlarged Gallbladder: 1.9cm wall with pericholecystic fluid Evidence for sonographic Phelan's sign: YES CBD: wnl Spleen: enlarged Right Kidney: large in size Left Kidney: large in size Upper IVC: wnl Abd Aorta: dist portion gassed out Trace amount of free fluid seen within Hensley's pouch IMPRESSION: 1. Markedly thickened gallbladder wall with pericholecystic fluid. There is a positive Phelan sign. F indings are compatible with acute cholecystitis. A Red level critical message alert has been initiated for Remi Edwards MD via the [employer] Critical Results System on 07/08/2020 3:54 PM. This message alert has been sent to Remi Edwards MD via the preferences provided by the clinician for the receipt of Radiology Critical Findings. Message ID [id number].
[2020-07-08 16:58] LABS: Hepatitis A Antibody IgM Non-Reactive (Non-Reactive); Hepatitis B Core IgM Non-Reactive (Non-Reactive); Hepatitis B Surface Antigen Non-Reactive (Non-Reactive); Hepatitis C IgG Antibody Non-Reactive (Non-Reactive)
[2020-07-08] MEDS ORDERED: IOPAMIDOL CONTRAST (ORAL USE) VIAL PO PRN (19:16)
--- NOTE | 2020-07-08 19:23 | P.GSCN ---
History of Present Illness Consult date: 07/08/20 Reason for Consult: Cholecystitis History of present illness: 24-year-old female began having fevers nausea vomiting and left-sided pain last Sunday. Says for 2 days she slept on her living room floor because of discomfort and feeling ill. She thought she had food poisoning. She came to the hospital on Sunday. Had a CAT scan abdomen and pelvis performed which demonstrated left hydronephrosis with suspected kidney stones. She then un derwent cystoscopy with stent placement. Transiently had some improvement in her symptoms with the left-sided pain improved however gradually the pain has shifted now to the epigastric and right upper quadrant. These symptoms of right-sided pain apparently began over the last 24 hours. No history of known gallstones or kidney issues. Kidney function is normal at this time. White blood cell count was elevated but now normal. She is still having intermittent fevers. Urine culture shows E. coli. On CAT scan from admission gallbladder appears normal. No stones or gallbladder wall thickening or evident. Ultrasound abdomen was performed today after her liver enzymes were noted to increase given her right upper abdominal pain. Ultrasound now shows a markedly abnormal appearing gallbladder with a gallbladder wall thickness approaching 2 cm. Still no stone seen. ALT and AST in the 200s. Bilirubin and alkaline phosphatase both normal. Review of Systems The patient denies any acute changes in vision or hearing, no dysphagia or odynophagia, no chest pain or shortness of breath no headache, no runny nose, no rectal bleeding or melena, no unexplained weight loss Past Medical History Past Medical History: Hypertension Additional Past Medical History / Comment(s): Patient has had 4 spontaneous vaginal deliveries ranging from 8 lbs. 9 oz.-9 lbs. 6 oz. History of HTN - states she took antihypertensives 3 years ago and just stopped taking them. History of Any Multi-Drug Resistant Organisms: None Reported Past Surgical History: Tubal Ligation Past Anesthesia/Blood Transfusion Reactions: No Reported Reaction Additional Past Anesthesia/Blood Transfusion Reaction / Comm: n o hx. Past Psychological History: No Psychological Hx Reported Smoking Status: Current every day smoker Past Alcohol Use History: None Reported Additional Past Alcohol Use History / Comment(s): Smokes 1/2 PPD. Past Drug Use History: None Reported - Past Family History Brother(s) Additional Family Medical History / Comment(s): Hemophilia Father Family Medical History: No Reported History Medications and Allergies Home Medications Medication Instructions Recorded Confirmed Type No Known Home Medications 07/06/20 07/06/20 History Allergies Allergy/AdvReac Type Severity Reaction Status Date / Time No Known Allergies Allergy Verified 07/06/20 08:00 Surgical - Exam Vital Signs Temp Pulse Resp BP Pulse Ox 98.8 F 116 H 16 97/60 97 07/05/20 23:06 07/05/20 23:06 07/05/20 23:06 07/05/20 23:06 07/05/20 23:06 Physical exam: General: Well-developed, well-nourished HEENT: Normocephalic, sclerae nonicteric Abdomen: Epigastric and right upper quadrant tenderness, nondistended Extremities: No edema Neuro: Alert and oriented Results - Labs 07/08/20 06:41 07/08/20 06:41 Abnormal Lab Results - Last 24 Hours (Table) 07/08/20 07/08/20 Range/Units 06:41 06:41 RBC 3.21 L (3.80-5.40) m/uL Hgb 10.0 L (11.4-16.0) gm/dL Hct 30.8 L (34.0-46.0) % Plt Count 87 L (150-450) k/uL Lymphocytes # 0.7 L (1.0-4.8) k/uL Sodium 135 L (137-145) mmol/L Calcium 8.3 L (8.4-10.2) mg/dL AST 225 H (14-36) U/L ALT 245 H (4-34) U/L Total Protein 5.3 L (6.3-8.2) g/dL Albumin 2.8 L (3.5-5.0) g/dL Microbiology - Last 24 Hours (Table) 07/05/20 23:50 Urine Culture - Final Urine,Clean Catch Escherichia coli 07/06/20 08:24 Blood Culture - Preliminary Blood No Growth after 48 hours Diabetes panel 07/08/20 Range/Units 06:41 Sodium 135 L (137-145) mmol/L Potassium 3.9 (3.5-5.1) mmol/L Chloride 107 (98-107) mmol/L Carbon Dioxide 26 (22-30) mmol/L BUN 15 (7-17) mg/dL Creatinine 0.75 (0.52-1.04) mg/dL Glucose 97 (74-99) mg/dL Calcium 8.3 L (8.4-10.2) mg/dL AST 225 H (14-36) U/L ALT 245 H (4-34) U/L Alkaline Phosphatase 105 (38-126) U/L Total Protein 5.3 L (6.3-8.2) g/dL Albumin 2.8 L (3.5-5.0) g/dL Calcium panel 07/08/20 Range/Units 06:41 Calcium 8.3 L (8.4-10.2) mg/dL Albumin 2.8 L (3.5-5.0) g/dL Pituitary panel 07/08/20 Range/Units 06:41 Sodium 135 L (137-145) mmol/L Potassium 3.9 (3.5-5.1) mmol/L Chloride 107 (98-107) mmol/L Carbon Dioxide 26 (22-30) mmol/L BUN 15 (7-17) mg/dL Creatinine 0.75 (0.52-1.04) mg/dL Glucose 97 (74-99) mg/dL Calcium 8.3 L (8.4-10.2) mg/dL Adrenal panel 07/08/20 Range/Units 06:41 Sodium 135 L (137-145) mmol/L Potassium 3.9 (3.5-5.1) mmol/L Chloride 107 (98-107) mmol/L Carbon Dioxide 26 (22-30) mmol/L BUN 15 (7-17) mg/dL Creatinine 0.75 (0.52-1.04) mg/dL Glucose 97 (74-99) mg/dL Calcium 8.3 L (8.4-10.2) mg/dL Total Bilirubin 0.5 (0.2-1.3) mg/dL AST 225 H (14-36) U/L ALT 245 H (4-34) U/L Alkaline Phosphatase 105 (38-126) U/L Total Protein 5.3 L (6.3-8.2) g/dL Albumin 2.8 L (3.5-5.0) g/dL Assessment and Plan (1) Cholecystitis Narrative/Plan: 24-year-old female with unusual clinical history that includes admission for left hydronephrosis with presumed pyelonephritis. Now having right upper quadrant pain and gallbladder ultrasound showing significant inflammatory changes. Case discussed with urology. We'll proceed with CT abdomen and pelvis with IV contrast at this time. Clinical scenario also reviewed with the patient. We'll tentatively proceed with cholecystectomy hopefully laparoscopically tomorrow. Further decisions will be made after repeat cat scan reviewed. Continue antibiotics. Repeat labs tomorrow. Current Visit: Yes Status: Acute Code(s): K81.9 - CHOLECYSTITIS, UNSPECIFIED SNOMED Code(s): 71253965
--- NOTE | 2020-07-08 21:35 | CT ---
EXAMINATION TYPE: CT abdomen pelvis w con DATE OF EXAM: 07/08/2020 COMPARISON: 07/06/2020 HISTORY: Cholecystitis. CT DLP: 629.5 mGycm Automated exposure control for dose reduction was used. CONTRAST: Performed with IV Contrast, patient injected with 100ml mL of Isovue 300. Images were obtained from the diaphragm to the floor the pelvis with IV contrast. There are mild bilateral pleural effusions. There is bilateral lower lobe pulmonary infiltrate and at electasis. Heart size is normal. There is no pericardial effusion. Liver spleen pancreas appear intact. The bile ducts are not dilated. There is abdominal ascites. Ther e is free fluid around the gallbladder. Gallbladder appears to be contracted. There is no sign of ureña creatic mass. There is periportal edema throughout the liver. Kidneys show satisfactory contrast opacification. The delayed images show decreased cortical enhancem ent of the upper pole of the left kidney. There is also small cortical defects in the lower pole left kidney.There is left side ureteral stent. There is no retroperitoneal adenopathy. Bladder distends s moothly. There is no inguinal hernia. There is no evidence of a pelvic mass. Uterus is anteverted. Lumbar vertebra have normal spacing and alignment. Posterior elements are intact. Hip joints are inta ct. Bony pelvis intact. There is no mesenteric edema. There is no evidence of free air. There is normal oral contrast opacifi cation of the small bowel. There is no sign of a bowel obstruction. IMPRESSION: Abdominal ascites. Patchy abnormal decreased enhancement of the left kidney could relate to multifoca l ischemia or multifocal pyelonephritis. There is periportal edema that is nonspecific and can be associated with hepatitis. Bilateral pleural effusions and basilar pulmonary infiltrates and atelectasis. Abnormalities are new compared to recent exam 2 days ago.
--- NOTE | 2020-07-08 23:53 | PN ---
PROGRESS NOTE 24-year-old white female who has been spiking fevers overnight. White count 24.2, hemoglobin is 10, sodium 135. Liver enzymes jumped from 24-225, 32-245. Ultrasound shows acute cholecystitis. Surgical consult is pending. GI chest palpation left flank and left mid abdomen. Dr. Pastor saw her. He recommends cholecystitis, includes left hydronephrosis, pyelonephritis, status post stent placement. He is going to do a laparoscopic cholecystectomy tomorrow. Continue antibiotics. PROGNOSIS: Guarded. MMODL / IJN: [id number] /
[2020-07-09] MEDS: ONDANSETRON 4 MG/2 ML VIAL IVP PRN (00:16)
[2020-07-09] MEDS ORDERED: ONDANSETRON 4 MG/2 ML VIAL IVP PRN (00:18)
[2020-07-09] MEDS: HYDROmorphone 1 MG/ML 1 ML SYRINGE IVP PRN ×5 (01:51→22:40)
[2020-07-09] MEDS: SODIUM CHLORIDE 0.9% 1,000 ML IV SCH ×2 (01:53→17:09)
[2020-07-09] MEDS: IBUPROFEN 600 MG TAB PO PRN (06:12)
[2020-07-09 08:57] LABS: Basophils % (A) 0 %; Eosinophils # (A) 0.1 k/uL (0-0.7); Eosinophils % (A) 2 %; HCT 28.3 % (34.0-46.0); HGB 9.6 gm/dL (11.4-16.0); Lymphocytes # (A) 0.7 k/uL (1.0-4.8); Lymphocytes % (A) 14 %; MCH 31.8 pg (25.0-35.0); MCV 93.5 fL (80.0-100.0); Mean Platelet Volume 9.5; Monocytes # (A) 0.5 k/uL (0-1.0); Monocytes % (A) 10 %; Neutrophils # (A) 3.8 k/uL (1.3-7.7); Neutrophils % (A) 72 %; RBC 3.03 m/uL (3.80-5.40); RDW 12.9 % (11.5-15.5); WBC 5.3 k/uL (3.8-10.6)
[2020-07-09] MEDS: TAMSULOSIN 0.4 MG CAP.ER.24H PO SCH (08:57)
[2020-07-09] MEDS: CEFEPIME 2 GM in SODIUM CHLORIDE 0.9% 100 ML IVPB SCH (08:58)
[2020-07-09] MEDS: DOCUSATE 100 MG CAP PO SCH ×2 (08:58→19:48)
[2020-07-09] MEDS: NICOTINE 21MG/24HR PATCH TRANSDERM SCH (08:58)
[2020-07-09 08:59] LABS: Platelet Count 95 k/uL (150-450)
[2020-07-09 09:02] LABS: ALT 293 U/L (4-34); AST 122 U/L (14-36); African American GFR (CKD) >90 (>60 ml/min/1.73 sqM); Albumin 2.8 g/dL (3.5-5.0); Alkaline Phosphatase 151 U/L (38-126); Anion Gap 3 mmol/L; Blood Urea Nitrogen 12 mg/dL (7-17); Calcium 8.3 mg/dL (8.4-10.2); Carbon Dioxide 26 mmol/L (22-30); Chloride 107 mmol/L (98-107); Glucose 89 mg/dL (74-99); Non-African American GFR(CKD) >90 (>60 ml/min/1.73 sqM); Potassium 3.6 mmol/L (3.5-5.1); Sodium 136 mmol/L (137-145); Total Bilirubin 0.9 mg/dL (0.2-1.3); Total Protein 5.4 g/dL (6.3-8.2)
--- NOTE | 2020-07-09 10:07 | P.CNPUL ---
History of Present Illness Consult date: 07/09/20 Reason for consult: dyspnea, pleural effusion Chief complaint: Shortness of breath History of present illness: This is a pleasant 24-year-old female she smoke quarter to half pack per day, she came into the hospital with left flank pain and also right-sided abdominal pain workup and evaluation revealed presence of the left-sided hydroureter due to renal calculi as well as a right-sided cholecystitis, patient is being considered for laparoscopy cholecystectomy, patient had initial CAT scan were negative for any active pulmonary process at the time admission however yesterday shows some atelectasis and small effusion I was asked to evaluate the patient, on specific questioning denies any cough or sputum production does have mild shortness of breath, patient is on room air oxygen saturation is mid 90s, patient remains on broad-spectrum antibiotics, Review of Systems All systems: negative Past Medical History Past Medical History: Hypertension Additional Past Medical History / Comment(s): Patient has had 4 spontaneous vaginal deliveries ranging from 8 lbs. 9 oz.-9 lbs. 6 oz. History of HTN - states she took antihypertensives 3 years ago and just stopped taking them. History of Any Multi-Drug Resistant Organisms: None Reported Past Surgical History: Tubal Ligation Past Anesthesia/Blood Transfusion Reactions: No Reported Reaction Additional Past Anesthesia/Blood Transfusion Reaction / Comment(s): n o hx. Past Psychological History: No Psychological Hx Reported Smoking Status: Current every day smoker Past Alcohol Use History: None Reported Additional Past Alcohol Use History / Comment(s): Smokes 1/2 PPD. Past Drug Use History: None Reported - Past Family History Brother(s) Additional Family Medical History / Comment(s): Hemophilia Father Family Medical History: No Reported History Medications and Allergies Home Medications Medication Instructions Recorded Confirmed Type No Known Home Medications 07/06/20 07/06/20 History Allergies Allergy/AdvReac Type Severity Reaction Status Date / Time No Known Allergies Allergy Verified 07/06/20 08:00 Physical Exam Vitals: Vital Signs Temp Pulse Resp BP BP Pulse Ox 07/09/20 08:21 98.8 F 72 20 119/74 97 07/09/20 07:38 101.2 F H 07/09/20 06:03 100.7 F H 07/09/20 01:52 98.5 F 76 18 119/76 93 L 07/09/20 00:05 101 F H 07/08/20 20:10 100.4 F H 74 18 128/83 96 07/08/20 18:47 100.9 F H 07/08/20 17:02 101.6 F H 07/08/20 16:26 98.4 F 07/08/20 15:40 100.8 F H 07/08/20 12:50 98.7 F 78 18 113/73 96 07/08/20 10:28 99.1 F Intake and Output 07/08/20 07/09/20 07/09/20 22:59 06:59 14:59 Intake Total 1340 Output Total 450 800 350 Balance 890 -800 -350 Intake: Intake, IV Titration 800 Amount Sodium Chloride 0.9% 1, 750 000 ml @ 75 mls/hr IV . [id number] [facility] Rx#:[id number] cefTRIAXone 1 gm In 50 Sodium Chloride 0.9% 50 ml @ 100 mls/hr IVPB Q24HR [facility] Rx#:[id number] Oral 540 Output: Urine 450 800 350 Other: Voiding Method Toilet Toilet # Voids 1 - Constitutional General appearance: average body habitus, cooperative, disheveled - EENT Eyes: EOMI, PERRLA ENT: hearing grossly normal Ears: bilateral: normal - Neck Neck: normal ROM Carotids: bilateral: upstroke normal Thyroid: bilateral: normal size - Respiratory Respiratory: bilateral: CTA - Cardiovascular Rhythm: regular Heart sounds: normal: S1, S2 - Gastrointestinal General gastrointestinal: decreased bowel sounds, soft - Integumentary Integumentary: normal turgor - Neurologic Neurologic: CNII-XII intact - Musculoskeletal Musculoskeletal: gait normal, generalized weakness, strength equal bilaterally - Psychiatric Psychiatric: A&O x's 3, appropriate affect, intact judgment & insight Results - Laboratory Findings CBC and BMP: 07/09/20 08:41 07/09/20 08:41 Abnormal lab findings: Abnormal Labs 07/05/20 07/05/20 07/05/20 23:50 23:50 23:50 WBC 15.7 H RBC Hgb Hct Plt Count 120 L Neutrophils # 14.2 H Lymphocytes # 0.5 L Sodium 136 L BUN Glucose 121 H Calcium AST ALT Alkaline Phosphatase Total Protein Albumin Lipase 19 L Urine Appearance Turbid H Urine Protein 2+ H Urine Blood Moderate H Urine Nitrite Positive H Ur Leukocyte Esterase Large H Urine RBC 20 H Urine WBC >182 H Urine WBC Clumps Many H Ur Squamous Epith Cells 5 H Urine Bacteria Moderate H Hyaline Casts 8 H Urine Mucus Many H 07/07/20 07/07/20 07/08/20 05:44 05:44 06:41 WBC 10.9 H RBC 3.18 L 3.21 L Hgb 10.0 L D 10.0 L Hct 30.2 L 30.8 L Plt Count 104 L 87 L Neutrophils # 9.1 H Lymphocytes # 0.8 L 0.7 L Sodium 136 L BUN 22 H Glucose 102 H Calcium AST ALT Alkaline Phosphatase Total Protein 5.4 L Albumin 2.9 L Lipase Urine Appearance Urine Protein Urine Blood Urine Nitrite Ur Leukocyte Esterase Urine RBC Urine WBC Urine WBC Clumps Ur Squamous Epith Cells Urine Bacteria Hyaline Casts Urine Mucus 07/08/20 07/09/20 07/09/20 06:41 08:41 08:41 WBC RBC 3.03 L Hgb 9.6 L Hct 28.3 L Plt Count 95 L Neutrophils # Lymphocytes # 0.7 L Sodium 135 L 136 L BUN Glucose Calcium 8.3 L 8.3 L AST 225 H 122 H ALT 245 H 293 H Alkaline Phosphatase 151 H Total Protein 5.3 L 5.4 L Albumin 2.8 L 2.8 L Lipase Urine Appearance Urine Protein Urine Blood Urine Nitrite Ur Leukocyte Esterase Urine RBC Urine WBC Urine WBC Clumps Ur Squamous Epith Cells Urine Bacteria Hyaline Casts Urine Mucus Assessment and Plan Assessment: Shortness of breath due to intra-abdominal process Small bilateral pleural effusion likely transudative Bilateral basal compressive atelectasis due to intra-abdominal process Acute cholecystitis Left-sided pyelonephritis and Urinary tract infection due to gram-negative rods Left-sided hydroureter and urinary tract calculi status post cystoscopy left retrograde pyelogram and left ureter stent placement Plan: Deep breathing exercise incentive spirometry Monitor clinical course closely Continue antibiotics Agree to proceed with surgical evaluation for acute cholecystitis Chest x-ray Further recommendations pending plan of care as per clinical response of the pa tient Time with Patient: Greater than 30
--- NOTE | 2020-07-09 11:01 | XR ---
EXAMINATION TYPE: XR chest 2V DATE OF EXAM: 07/09/2020 COMPARISON: Chest x-ray August 27, 2013 HISTORY: Cough. TECHNIQUE: Frontal and lateral views of the chest are obtained. FINDINGS: There is new left greater than right bibasilar opacities and tiny bilateral pleural effusi ons. The cardiac silhouette size remains within normal limits. The osseous structures are intact. IMPRESSION: New left greater than right patchy bibasilar acute infiltrate and/or atelectasis and tin y bilateral pleural effusions.
[2020-07-09] MEDS ORDERED: IV FLUID CONTINUATION 1,000 ML IV ONE (12:37)
[2020-07-09] MEDS ORDERED: DEXAMETHASONE SOD PHOSPHATE 4 MG/ML 1 ML VIAL IV ONE (12:53)
[2020-07-09] MEDS ORDERED: SCOPOLAMINE 1.5MG/72HR PATCH TRANSDERM ONE (12:54)
[2020-07-09] MEDS ORDERED: MIDAZOLAM 2 MG/2 ML VIAL IV ONE (12:58)
--- NOTE | 2020-07-09 13:09 | P.PN ---
Progress Note - Text Progress Note Date: 07/09/20 The patient states that her left-sided pain is somewhat improved. She reports bilateral upper abdominal pain. She continues to be intermittently febrile. Urine culture showed pansensitive E. coli. Blood cultures are negative. A CT scan performed yesterday evening showed patchy enhancement of the left renal parenchyma, consistent with pyelonephritis. Her WBC count is normal. She will likely undergo a laparoscopic cholecystectomy later today given the abnormalities seen on abdominal ultrasound and CT scan pertaining to the gallbladder.
[2020-07-09] MEDS ORDERED: HEPARIN SODIUM,PORCINE 5,000 UNIT/ML 1 ML VIAL ONE (13:25)
[2020-07-09] MEDS ORDERED: HEPARIN SODIUM,PORCINE 5,000 UNIT/ML 1 ML VIAL SQ ONE (13:28)
--- NOTE | 2020-07-09 13:38 | P.PN ---
Subjective Progress Note Date: 07/09/20 HISTORY OF PRESENT ILLNESS This is a 24-year-old female who presented to the hospital for sepsis and left sided pyelonephritis and urinary tract infection. Patient is status post cystoscopy and ureteral stent placement. Patient is currently on cefepime 2 g IV piggyback every 12 hours. Patient states that she continues to have left-sided abdominal pain and flank pain. She states the whole left side is hurting her. She states she has occasional nausea. No vomiting. She complains of abdominal bloating. She continues to have hematuria. CBC is 4.2, hemoglobin 10, platelet count 87. Creatinine 0.75. Patient did have a jump in her liver function tests with AST of 225 and ALT 245. Attending has ordered a liver ultrasound and will change this to a full abdomen ultrasound to further evaluate renal system as well. Urine culture is still showing gram-negative bacilli. Blood cultures no growth at 48 hours. 07/09: Abdominal ultrasound reveals markedly thickened gallbladder wall with cholecystic fluid. Positive Phelan sign. Findings compatible with acute cholecystitis. CAT scan of the abdomen and pelvis revealed abdominal ascites. Patchy abnormal decreased enhancement of the left kidney could relate to multifocal ischemia or multifocal pyelonephritis. Periportal edema and nonspecific. Bilateral pleural effusions and basilar pulmonary infiltrates and atelectasis. Interval development of severe concentric gallbladder wall thickening. Patient states that she has scheduled for gallbladder surgery this afternoon. Patient states that she is feeling much better today. Left flank and abdominal pain is much better. She is now having more pain in the right upper quadrant. Urine culture is positive for E. coli, pansensitive. Temperature max 101.2, heart rate 69, blood 133/86, pulse ox 97% on room air. CBC 5.3, hemoglobin 9.6, platelet count 95. Electrolytes unremarkable. Liver function tests show total bilirubin 0.9, AST 122, AST 293, alkaline phosphatase 151. PHYSICAL EXAMINATION Gen: This is a 24-year-old female. Patient is resting in bed. HEENT: Head is atraumatic, normocephalic. Pupils equal, round. Sclerae is anicteric. NECK: Supple. No JVD. No lymphadenopathy. LUNGS: Clear to auscultation. No wheezes or rhonchi. No intercostal retr actions. HEART: Regular rate and rhythm. No murmur. ABDOMEN: Soft. Bowel sounds are present. No masses. No tenderness. Mild left flank tenderness EXTREMITIES: No pedal edema. No calf tenderness. NEUROLOGICAL: Patient is awake, alert and oriented x3. ASSESSMENT Sepsis and left-sided pyelonephritis, E. coli UTI Acute cholecystitis PLAN Discontinue cefepime 2 g IV piggyback every 12 hours Start Rocephin 2 g IV piggyback daily Further recommendations as patient progresses. The above dictated assessment and findings were discussed with Dr. Beavers. The impression and plan of care have been directed as dictated. Jael Sanches nurse practitioner acting as scribe for Dr. Beavers. Objective - Vital Signs Vital signs: Vital Signs Temp 97.7 F 07/09/20 11:59 Pulse 73 07/09/20 11:59 Resp 16 07/09/20 11:59 BP 130/87 07/09/20 11:59 Pulse Ox 100 07/09/20 11:59 Intake & Output 07/08/20 07/09/20 07/09/20 18:59 06:59 18:59 Intake Total 1580 Output Total 800 800 750 Balance 780 -800 -750 Intake: Intake, IV Titration 800 Amount Sodium Chloride 0.9% 1, 750 000 ml @ 75 mls/hr IV . [id number] [facility] Rx#:[id number] cefTRIAXone 1 gm In 50 Sodium Chloride 0.9% 50 ml @ 100 mls/hr IVPB Q24HR [facility] Rx#:[id number] Oral 780 Output: Urine 800 800 750 Other: Voiding Method Toilet Toilet Toilet # Voids 1 - Labs CBC & Chem 7: 07/09/20 08:41 07/09/20 08:41 Labs: Abnormal Lab Results - Last 24 Hours (Table) 07/09/20 07/09/20 Range/Units 08:41 08:41 RBC 3.03 L (3.80-5.40) m/uL Hgb 9.6 L (11.4-16.0) gm/dL Hct 28.3 L (34.0-46.0) % Plt Count 95 L (150-450) k/uL Lymphocytes # 0.7 L (1.0-4.8) k/uL Sodium 136 L (137-145) mmol/L Calcium 8.3 L (8.4-10.2) mg/dL AST 122 H (14-36) U/L ALT 293 H (4-34) U/L Alkaline Phosphatase 151 H (38-126) U/L Total Protein 5.4 L (6.3-8.2) g/dL Albumin 2.8 L (3.5-5.0) g/dL Microbiology - Last 24 Hours (Table) 07/08/20 08:52 Blood Culture - Preliminary Blood No Growth after 24 hours 07/06/20 08:24 Blood Culture - Preliminary Blood No Growth after 72 hours 07/05/20 23:50 Urine Culture - Final Urine,Clean Catch Escherichia coli
[2020-07-09] MEDS ORDERED: PROPOFOL 10 MG/ML 20 ML VIAL IV ONE (13:51)
[2020-07-09] MEDS ORDERED: MIDAZOLAM 2 MG/2 ML VIAL ONE (13:51)
[2020-07-09] MEDS ORDERED: fentaNYL (PF) 50 MCG/ML 2 ML AMP ONE (13:51)
[2020-07-09] MEDS ORDERED: HYDROmorphone (PF) 1 MG/ML ONE (13:51)
[2020-07-09] MEDS ORDERED: SUCCINYLCHOLINE CHLORIDE 100 MG/5 ML SYR IV ONE (13:51)
--- NOTE | 2020-07-09 14:02 | P.PN ---
Progress Note - Text Progress Note Date: 07/09/20 Patient seen this morning. Still having right upper quadrant pain although slightly improved from last night. She is still having intermittent fevers as well. CAT scan was reviewed with radiology. Patient has significant gallbladder wall thickening without stones seen. This morning's labs noted. Options reviewed. We'll proceed with laparoscopic, possible open cholecystectomy at this time. Risks of bleeding, infection, bile leak, bile duct injury, retained common bile duct stone, trocar injury, conversion to an open procedure, hernia, anesthesia related complications were reviewed. The patient understands and wishes to proceed.
[2020-07-09] MEDS ORDERED: BUPIVACAINE (PF) 0.25% 30 ML VIAL SQ ONE (14:17)
[2020-07-09] MEDS ORDERED: LACTATED RINGERS 1,000 ML IV ONE ×2 (14:18→14:56)
--- NOTE | 2020-07-09 15:04 | P.OP ---
Date of Procedure: 07/09/20 Procedure(s) Performed: PREOPERATIVE DIAGNOSIS: Acute acalculous cholecystitis POSTOPERATIVE DIAGNOSIS: Same PROCEDURE: Laparoscopic cholecystectomy SURGEON: Dawit EBL: Minimal see anesthesia record ANESTHESIA: Gen. COMPLICATIONS: None OPERATIVE PROCEDURE: The patient was brought and placed on the operating room table in the supine position. The patient was placed under general anesthesia at that time. The abdomen was prepped and draped in the usual sterile fashion. A small vertical infraumbilical incision was made. The fascia was grasped with the Jennifer forceps. The fascia was retracted anteriorly. The Veress needle was advanced into the peritoneal cavity. The saline drop test was normal. I nsufflation took place up to 15 mmHg. A 5 mm optical trocar was advanced and the peritoneal cavity. 2 additional 5 mm trochars were placed in the right upper quadrant under direct visualization. A 12 mm trocar was advanced into the epigastric incision site. The gallbladder was inspected. There were no adhesions to the gallbladder. The wall the gallbladder appeared edematous but was viable without evidence of ischemia. The gallbladder was retracted superiorly and laterally. The peritoneum overlying the infundibulum was bluntly dissected. The patient's cystic duct was visualized. The junction between the cystic duct common and hepatic duct was identified. The cystic duct was then divided after placement of 3 12 mm clips on the patient's side and one on the specimen side. The cystic artery was identified and clipped as well. A small vessel was seen along the gallbladder fossa and clipped as well. The gallbladder was then removed from the liver bed using electrocautery. Sign ificant edema of the wall the gallbladder was evident when we were cauterizing between the gallbladder and liver. The gallbladder was then removed from the epigastric trocar site with an Endo Catch bag. The gallbladder fossa was irrigated with saline. There was no evidence of any bleeding or biliary drainage seen. The fascia at the 12 millimeter site was closed using a Everett Diazon 0 Vicryl stitch. The trochars were then removed. The skin at all 4 sites was closed using a 4-0 Monocryl stitch. Skin glue was utilized on the incision sites. At the end of this procedure the sponge and needle counts were correct. DISPOSITION: Stable to the recovery room
[2020-07-09] MEDS: HYDROmorphone 0.5 MG/0.5 ML SYRINGE IVP ONE ×2 (15:26→15:46)
[2020-07-10] MEDS: HYDROmorphone 1 MG/ML 1 ML SYRINGE IVP PRN ×6 (01:27→20:18)
[2020-07-10] MEDS: SODIUM CHLORIDE 0.9% 1,000 ML IV SCH ×2 (05:00→17:06)
[2020-07-10] MEDS: IBUPROFEN 600 MG TAB PO PRN ×2 (05:00→12:55)
[2020-07-10] MEDS: TAMSULOSIN 0.4 MG CAP.ER.24H PO SCH (08:43)
[2020-07-10] MEDS: HYDROcodone/APAP 7.5-325MG 1 EACH TAB PO PRN ×2 (08:43→22:19)
[2020-07-10] MEDS: DOCUSATE 100 MG CAP PO SCH ×2 (08:43→20:17)
[2020-07-10] MEDS: NICOTINE 21MG/24HR PATCH TRANSDERM SCH (08:45)
[2020-07-10 11:00] LABS: ALT 201 U/L (4-34); AST 46 U/L (14-36); African American GFR (CKD) >90 (>60 ml/min/1.73 sqM); Albumin 2.9 g/dL (3.5-5.0); Alkaline Phosphatase 151 U/L (38-126); Anion Gap 5 mmol/L; Blood Urea Nitrogen 10 mg/dL (7-17); Calcium 8.6 mg/dL (8.4-10.2); Carbon Dioxide 29 mmol/L (22-30); Chloride 104 mmol/L (98-107); Glucose 120 mg/dL (74-99); Non-African American GFR(CKD) >90 (>60 ml/min/1.73 sqM); Potassium 3.3 mmol/L (3.5-5.1); Sodium 138 mmol/L (137-145); Total Bilirubin 0.4 mg/dL (0.2-1.3); Total Protein 5.8 g/dL (6.3-8.2)
[2020-07-10 11:01] LABS: Basophils % (A) 1 %; Eosinophils # (A) 0.1 k/uL (0-0.7); Eosinophils % (A) 1 %; HCT 34.3 % (34.0-46.0); HGB 10.9 gm/dL (11.4-16.0); Lymphocytes # (A) 1.4 k/uL (1.0-4.8); Lymphocytes % (A) 19 %; MCH 30.5 pg (25.0-35.0); MCHC 31.9 g/dL (31.0-37.0); MCV 95.6 fL (80.0-100.0); Monocytes # (A) 0.5 k/uL (0-1.0); Monocytes % (A) 7 %; Neutrophils # (A) 5.2 k/uL (1.3-7.7); Neutrophils % (A) 68 %; RBC 3.59 m/uL (3.80-5.40); RDW 13.3 % (11.5-15.5); WBC 7.6 k/uL (3.8-10.6)
[2020-07-10 11:05] LABS: Platelet Count 164 k/uL (150-450)
--- NOTE | 2020-07-10 11:30 | P.PN ---
Subjective Progress Note Date: 07/10/20 Principal diagnosis: Acute cholecystitis Patient doing better today. Says her pain is improved. Still too uncomfortable to be discharged states. Tolerating diet. Labs noted. Liver enzymes improved. Objective - Vital Signs Vital signs: Vital Signs Temp 98.2 F 07/10/20 08:35 Pulse 62 07/10/20 08:35 Resp 16 07/10/20 08:35 BP 121/76 07/10/20 08:35 Pulse Ox 98 07/10/20 08:35 Intake & Output 07/09/20 07/10/20 07/10/20 18:59 06:59 18:59 Intake Total 1000 Output Total 760 750 Balance 240 -750 Intake: IV 800 Oral 200 Output: Urine 750 750 Estimated Blood Loss 10 Other: Voiding Method Toilet Toilet Toilet # Voids 3 - Exam Abdomen: Soft, nondistended, mild tenderness, incisions clean and dry - Labs CBC & Chem 7: 07/10/20 10:28 07/10/20 10:28 Labs: Abnormal Lab Results - Last 24 Hours (Table) 07/10/20 07/10/20 Range/Units 10:28 10:28 RBC 3.59 L (3.80-5.40) m/uL Hgb 10.9 L (11.4-16.0) gm/dL Potassium 3.3 L (3.5-5.1) mmol/L Glucose 120 H (74-99) mg/dL AST 46 H (14-36) U/L ALT 201 H (4-34) U/L Alkaline Phosphatase 151 H (38-126) U/L Total Protein 5.8 L (6.3-8.2) g/dL Albumin 2.9 L (3.5-5.0) g/dL Microbiology - Last 24 Hours (Table) 07/08/20 08:52 Blood Culture - Preliminary Blood No Growth after 48 hours 07/06/20 08:24 Blood Culture - Preliminary Blood No Growth after 96 hours Assessment and Plan (1) Cholecystitis Narrative/Plan: Patient gradually improving. Continue antibiotics. Advance diet as tolerated. Ambulate. Possible discharge tomorrow. Current Visit: Yes Status: Acute Code(s): K81.9 - CHOLECYSTITIS, UNSPECIFIED SNOMED Code(s): 57549857
--- NOTE | 2020-07-10 11:33 | P.PN ---
Progress Note - Text Progress Note Date: 07/10/20 The patient has been afebrile since yesterday morning. She underwent a laparoscopic cholecystectomy yesterday afternoon. She states that she is feeling better, though she is experiencing significant incisional pain. Her left-sided pain has resolved. Urine culture has shown pansensitive E. coli. It would be my recommendation that she be treated with a 10-14 day course of oral antibiotics upon discharge, though I will defer this to ID. Assuming she responds favorably to antibiotics, I will remove her stent in the office in 2-3 weeks.
--- NOTE | 2020-07-10 20:30 | PN ---
PROGRESS NOTE DATE OF SERVICE: 07/10/2020. REASON FOR FOLLOWUP: 1. Left-sided pyelonephritis. 2. Cholecystitis. INTERVAL HISTORY: The patient is currently afebrile. The patient is breathing comfortably. Overall pain and discomfort to the abdominal area is slightly decreased. Some nausea, no vomiting. No chest pain, shortness of breath or cough. PHYSICAL EXAMINATION: Blood pressure is 128/77 with a pulse of 69, temperature 99.2. She is 100% on room air. General description: The patient is a middle-aged female lying in bed in no distress. Respiratory system: Unlabored breathing. Clear to auscultation anteriorly. Heart S1, S2. Regular rate and rhythm. Abdomen soft, no tenderness. LABS: Hemoglobin is 10.8, white count 7.6, BUN of 10, creatinine 0.57. DIAGNOSTIC IMPRESSION AND PLAN: Patient with E coli left-sided pyelonephritis complicated in this patient status post cystoscopy and left-sided stent placement, also with cholecystitis status post cholecystectomy. The patient to continue with Rocephin while monitoring clinical course closely. Continue with supportive care. MMODL / IJN: [id number] /
[2020-07-11] MEDS: HYDROmorphone 1 MG/ML 1 ML SYRINGE IVP PRN ×2 (00:02→05:49)
[2020-07-11] MEDS: SODIUM CHLORIDE 0.9% 1,000 ML IV SCH ×2 (06:36→16:23)
--- NOTE | 2020-07-11 06:38 | PN ---
PROGRESS NOTE Has UTI, E coli greater than 100,000 units, on broad-spectrum antibiotics, sensitive to multiple antibiotics. She will be sent home on Keflex after she recovers from her gallbladder surgery. Await for labs and for her to slowly improve. She says her pain is greatly improved. ASSESSMENT: 1. Urinary tract infection. 2. Renal stone. 3. Status post cholecystectomy. Possible discharge home in the next 24 to 48 hours. MMODL / IJN: [id number] /
[2020-07-11 07:29] LABS: ALT 144 U/L (4-34); AST 27 U/L (14-36); African American GFR (CKD) >90 (>60 ml/min/1.73 sqM); Albumin 2.5 g/dL (3.5-5.0); Alkaline Phosphatase 121 U/L (38-126); Anion Gap 1 mmol/L; Blood Urea Nitrogen 8 mg/dL (7-17); Calcium 8.4 mg/dL (8.4-10.2); Carbon Dioxide 29 mmol/L (22-30); Chloride 108 mmol/L (98-107); Glucose 104 mg/dL (74-99); Non-African American GFR(CKD) >90 (>60 ml/min/1.73 sqM); Potassium 3.5 mmol/L (3.5-5.1); Sodium 138 mmol/L (137-145); Total Bilirubin 0.3 mg/dL (0.2-1.3); Total Protein 5.2 g/dL (6.3-8.2)
[2020-07-11 07:30] LABS: Basophils % (A) 1 %; Eosinophils # (A) 0.1 k/uL (0-0.7); Eosinophils % (A) 2 %; HGB 9.9 gm/dL (11.4-16.0); Lymphocytes # (A) 1.1 k/uL (1.0-4.8); Lymphocytes % (A) 17 %; MCH 31.8 pg (25.0-35.0); MCV 93.4 fL (80.0-100.0); Mean Platelet Volume 8.6; Monocytes # (A) 0.6 k/uL (0-1.0); Monocytes % (A) 10 %; Neutrophils # (A) 4.4 k/uL (1.3-7.7); Neutrophils % (A) 68 %; Platelet Count 157 k/uL (150-450); RBC 3.11 m/uL (3.80-5.40); WBC 6.5 k/uL (3.8-10.6)
[2020-07-11] MEDS: HYDROcodone/APAP 7.5-325MG 1 EACH TAB PO PRN ×3 (07:36→18:28)
[2020-07-11] MEDS: DOCUSATE 100 MG CAP PO SCH ×2 (07:37→20:23)
[2020-07-11] MEDS: TAMSULOSIN 0.4 MG CAP.ER.24H PO SCH (07:37)
[2020-07-11] MEDS: NICOTINE 21MG/24HR PATCH TRANSDERM SCH (07:39)
--- NOTE | 2020-07-11 08:53 | P.PN ---
Progress Note - Text Progress Note Date: 07/11/20 The patient reports significant epigastric pain. She denies left-sided abdominal or flank pain. She remains afebrile. From my standpoint, it appears that her pyelonephritis is resolving and that no further urologic intervention will be required. She should be treated with a full course of antibiotics, and she will follow up with me in 2 weeks for office cystoscopy with stent removal. Please notify me if I can be of any further assistance during this hospitalization.
[2020-07-11] MEDS: IBUPROFEN 600 MG TAB PO PRN ×3 (10:58→22:09)
--- NOTE | 2020-07-11 12:19 | P.PN ---
Subjective Progress Note Date: 07/11/20 Principal diagnosis: Acute cholecystitis Patient says her pain today is worse than was yesterday. She has been less active. She is afebrile. Vital signs are stable. Labs noted. Liver enzymes improved. White blood cell count remains normal. She is afebrile. Objective - Vital Signs Vital signs: Vital Signs Temp 98.5 F 07/11/20 11:01 Pulse 70 07/11/20 11:01 Resp 18 07/11/20 11:01 BP 120/83 07/11/20 11:01 Pulse Ox 98 07/11/20 11:01 Intake & Output 07/10/20 07/11/20 07/11/20 18:59 06:59 18:59 Output Total 900 1000 200 Balance -900 -1000 -200 Output: Urine 900 1000 200 Other: Voiding Method Toilet Toilet - Exam Abdomen: Soft, nondistended, mild right upper quadrant tenderness, no rebound or guarding, incisions clean and dry - Labs CBC & Chem 7: 07/11/20 06:43 07/11/20 06:43 Labs: Abnormal Lab Results - Last 24 Hours (Table) 07/11/20 07/11/20 Range/Units 06:43 06:43 RBC 3.11 L (3.80-5.40) m/uL Hgb 9.9 L (11.4-16.0) gm/dL Hct 29.0 L (34.0-46.0) % Chloride 108 H (98-107) mmol/L Glucose 104 H (74-99) mg/dL ALT 144 H (4-34) U/L Total Protein 5.2 L (6.3-8.2) g/dL Albumin 2.5 L (3.5-5.0) g/dL Microbiology - Last 24 Hours (Table) 07/08/20 08:52 Blood Culture - Preliminary Blood No Growth after 72 hours 07/06/20 08:24 Blood Culture - Preliminary Blood No Growth after 120 hours Assessment and Plan (1) Cholecystitis Narrative/Plan: Patient overall doing fairly well. Unfortunately having slightly more discomfort today. After I evaluated her [facility] wants to go home. Given the fact that she is having more pain today would like to observe overnight. Plan discharge tomorrow. Current Visit: Yes Status: Acute Code(s): K81.9 - CHOLECYSTITIS, UNSPECIFIED SNOMED Code(s): 44408618
--- NOTE | 2020-07-11 13:29 | DS ---
DISCHARGE SUMMARY DISCHARGE DATE: 07/11/2020. DISCHARGE MEDICATIONS: Keflex 500 t.i.d. for a week and tramadol 50 mg q.6 hours p.r.n. for pain. She had a cholecystectomy done yesterday for acute cholecystitis, urinary tract infection, and pyelonephritis associated with the gallbladder, cholecystitis. Blood cultures are negative. Urine culture positive for E coli, sensitive to all antibiotics. Sent her home on antibiotics and pain medications to follow up as an outpatient. She is sitting up in bed, tolerating some fluids, walking down the kee prior to discharge with no fevers. Liver enzymes are almost back to normal from admission. She will follow up as an outpatient in the office as needed. CONDITION: Stable. PROGNOSIS: Guarded. DIET: Regular. MARTINAL / MONIQUEN: [id number] /
--- NOTE | 2020-07-11 18:51 | PN ---
PROGRESS NOTE DATE OF SERVICE: 07/11/2020 REASON FOR FOLLOWUP: Left-sided pyelonephritis and cholecystitis. INTERVAL HISTORY: The patient is currently afebrile. Patient is feeling better. Breathing comfortably. Pain to the abdominal area is currently controlled. No nausea, no vomiting. No diarrhea. PHYSICAL EXAMINATION: Blood pressure 120/83 with a pulse of 70, temperature 98.5. She is 98% on room air. General description: The patient is a middle-aged female lying in bed in no distress. Respiratory system: Unlabored breathing. Clear to auscultation anteriorly. Heart S1, S2. Regular rate and rhythm. Abdomen: Soft, no tenderness. LABORATORY DATA: Hemoglobin 9.1, white count 6.5. BUN of 8, creatinine 0.53. DIAGNOSTIC IMPRESSION AND PLAN: Patient with a complicated urinary tract infection secondary to E coli, status post cystoscopy and ureteral stent placement. Also with cholecystitis status post cholecystectomy. The patient is currently covered with Rocephin. Finish therapy with oral Cipro x2 weeks and close outpatient followup. MMODL / IJN: [id number] /
--- NOTE | 2020-07-11 21:16 | P.PN ---
Subjective Progress Note Date: 07/11/20 Principal diagnosis: Shortness of breath due to intra-abdominal process Small bilateral pleural effusion likely transudative Bilateral basal compressive atelectasis due to intra-abdominal process Acute cholecystitis status post cholecystectomy Left-sided pyelonephritis and Urinary tract infection due to gram-negative rods E. coli Left-sided hydroureter and urinary tract calculi status post cystoscopy left retrograde pyelogram and left ureter stent placement 07/11/2020, patient seen eval examined during the rounds labs reviewed medications reviewed care plan discussed with the patient, overall respiratory status continued to improve patient actively participating in deep breathing exercises incentive spirometry, urine cultures positive for E. coli sensitive to antibiotics currently on Rocephin 2 g daily, patient is status post cholecystectomy This is a pleasant 24-year-old female she smoke quarter to half pack per day, she came into the hospital with left flank pain and also right-sided abdominal pain workup and evaluation revealed presence of the left-sided hydroureter due to renal calculi as well as a right-sided cholecystitis, patient is being considered for laparoscopy cholecystectomy, patient had initial CAT scan were negative for any active pulmonary process at the time admission however yesterday shows some atelectasis and small effusion I was asked to evaluate the patient, on specific questioning denies any cough or sputum production does have mild shortness of breath, patient is on room air oxygen saturation is mid 90s, patient remains on broad-spectrum antibiotics, Objective - Vital Signs Vital signs: Vital Signs Temp 98.5 F 07/11/20 19:45 Pulse 79 07/11/20 19:45 Resp 18 07/11/20 19:45 BP 114/63 07/11/20 19:45 Pulse Ox 97 07/11/20 19:45 Intake & Output 07/11/20 07/11/20 07/12/20 06:59 18:59 06:59 Output Total 1000 200 Balance -1000 -200 Output: Urine 1000 200 Other: Voiding Method Toilet Toilet # Voids 3 - Exam - Constitutional General appearance: average body habitus, cooperative, disheveled - EENT Eyes: EOMI, PERRLA ENT: hearing grossly normal Ears: bilateral: normal - Neck Neck: normal ROM Carotids: bilateral: upstroke normal Thyroid: bilateral: normal size - Respiratory Respiratory: bilateral: CTA - Cardiovascular Rhythm: regular Heart sounds: normal: S1, S2 - Gastrointestinal General gastrointestinal: decreased bowel sounds, soft - Integumentary Integumentary: normal turgor - Neurologic Neurologic: CNII-XII intact - Musculoskeletal Musculoskeletal: gait normal, generalized weakness, strength equal bilaterally - Psychiatric Psychiatric: A&O x's 3, appropriate affect, intact judgment & insight - Labs CBC & Chem 7: 07/11/20 06:43 07/11/20 06:43 Labs: Abnormal Lab Results - Last 24 Hours (Table) 07/11/20 07/11/20 Range/Units 06:43 06:43 RBC 3.11 L (3.80-5.40) m/uL Hgb 9.9 L (11.4-16.0) gm/dL Hct 29.0 L (34.0-46.0) % Chloride 108 H (98-107) mmol/L Glucose 104 H (74-99) mg/dL ALT 144 H (4-34) U/L Total Protein 5.2 L (6.3-8.2) g/dL Albumin 2.5 L (3.5-5.0) g/dL Microbiology - Last 24 Hours (Table) 07/08/20 08:52 Blood Culture - Preliminary Blood No Growth after 72 hours 07/06/20 08:24 Blood Culture - Preliminary Blood No Growth after 120 hours Assessment and Plan Assessment: Shortness of breath due to intra-abdominal process Small bilateral pleural effusion likely transudative Bilateral basal compressive atelectasis due to intra-abdominal process Acute cholecystitis status post cholecystectomy Left-sided pyelonephritis and Urinary tract infection due to gram-negative rods E. coli Left-sided hydroureter and urinary tract calculi status post cystoscopy left retrograde pyelogram and left ureter stent placement Plan: Deep breathing exercise incentive spirometry Monitor clinical course closely Continue antibiotics Agree to proceed with surgical evaluation for acute cholecystitis Chest x-ray Further recommendations pending plan of care as per clinical response of the patient Time with Patient: Greater than 30
[2020-07-12] MEDS: HYDROcodone/APAP 7.5-325MG 1 EACH TAB PO PRN ×2 (00:02→08:21)
[2020-07-12 04:18] VITALS: RESP 16; TEMP 97.9
[2020-07-12 04:18] LABS: Basophils % (A) 1 %; Eosinophils # (A) 0.1 k/uL (0-0.7); Eosinophils % (A) 3 %; HCT 29.2 % (34.0-46.0); Lymphocytes # (A) 1.4 k/uL (1.0-4.8); Lymphocytes % (A) 29 %; MCH 31.9 pg (25.0-35.0); MCHC 34.2 g/dL (31.0-37.0); MCV 93.4 fL (80.0-100.0); Mean Platelet Volume 8.6; Monocytes # (A) 0.3 k/uL (0-1.0); Monocytes % (A) 7 %; Neutrophils # (A) 2.8 k/uL (1.3-7.7); Neutrophils % (A) 58 %; Platelet Count 184 k/uL (150-450); RBC 3.12 m/uL (3.80-5.40); WBC 4.8 k/uL (3.8-10.6)
[2020-07-12] MEDS: IBUPROFEN 600 MG TAB PO PRN (04:19)
[2020-07-12 04:38] LABS: ALT 110 U/L (4-34); AST 32 U/L (14-36); African American GFR (CKD) >90 (>60 ml/min/1.73 sqM); Albumin 2.5 g/dL (3.5-5.0); Alkaline Phosphatase 119 U/L (38-126); Anion Gap 3 mmol/L; Blood Urea Nitrogen 7 mg/dL (7-17); Calcium 8.3 mg/dL (8.4-10.2); Carbon Dioxide 30 mmol/L (22-30); Chloride 107 mmol/L (98-107); Glucose 98 mg/dL (74-99); Non-African American GFR(CKD) >90 (>60 ml/min/1.73 sqM); Potassium 3.7 mmol/L (3.5-5.1); Sodium 140 mmol/L (137-145); Total Bilirubin 0.3 mg/dL (0.2-1.3)
[2020-07-12] MEDS: NICOTINE 21MG/24HR PATCH TRANSDERM SCH (08:30)
[2020-07-12] MEDS: TAMSULOSIN 0.4 MG CAP.ER.24H PO SCH (08:30)
[2020-07-12] MEDS: DOCUSATE 100 MG CAP PO SCH (08:30)
[2020-07-12 09:50] VITALS: BP 152/95; PULSE 56
[2020-07-12] MEDS: SODIUM CHLORIDE 0.9% 1,000 ML IV SCH (12:20)
--- NOTE | 2020-07-12 12:57 | P.PN ---
<Alex Horowitzin - Last Filed: 07/12/20 12:54> Subjective Progress Note Date: 07/12/20 CHIEF COMPLAINT: Acute acalculous cholecystitis HISTORY OF PRESENT ILLNESS: Patient is status post laparoscopic cholecystectomy. Patient is tolerated surgery well. Her pain is controlled. She is tolerating diet. She denies any nausea or vomiting. She is ambulating. Afebrile. WBC 4.8. She did have some lower extremity swelling and some numbness of her feet over the weekend. Patient reports that the symptoms are decreasing and improving. PHYSICAL EXAM: VITAL SIGNS: Reviewed. GENERAL: Well-developed in no acute distress. HEENT: No sclera icterus. Extraocular movements grossly intact. Moist buccal mucosa. Head is atraumatic, normocephalic. ABDOMEN: Soft. Nondistended. Incision sites clean dry and intact NEUROLOGIC: Alert and oriented. Cranial nerves II through XII grossly intact. ASSESSMENT: 1. Acute acalculous cholecystitis status post laparoscopic cholecystectomy PLAN: -Patient is stable from surgical standpoint for discharge -Patient follow-up with Dr. Pastor in 1 week Physician Papier Mache Molder note has been reviewed by physician. Signing provider agrees with the documented findings, assessment, and plan of care. Objective - Vital Signs Vital signs: Vital Signs Temp 97.9 F 07/12/20 08:15 Pulse 56 L 07/12/20 08:15 Resp 16 07/12/20 08:15 BP 152/95 07/12/20 08:15 Pulse Ox 97 07/12/20 08:15 Intake & Output 07/11/20 07/12/20 07/12/20 18:59 06:59 18:59 Output Total 200 Balance -200 Output: Urine 200 Other: Voiding Method Toilet # Voids 3 1 1 - Labs CBC & Chem 7: 07/12/20 04:04 07/12/20 04:04 Labs: Abnormal Lab Results - Last 24 Hours (Table) 07/12/20 07/12/20 Range/Units 04:04 04:04 RBC 3.12 L (3.80-5.40) m/uL Hgb 10.0 L (11.4-16.0) gm/dL Hct 29.2 L (34.0-46.0) % Creatinine 0.44 L (0.52-1.04) mg/dL Calcium 8.3 L (8.4-10.2) mg/dL ALT 110 H (4-34) U/L Total Protein 5.0 L (6.3-8.2) g/dL Albumin 2.5 L (3.5-5.0) g/dL Microbiology - Last 24 Hours (Table) 07/08/20 08:52 Blood Culture - Preliminary Blood No Growth after 96 hours 07/06/20 08:24 Blood Culture - Final Blood No Growth after 144 hours <Ozzie Pastor - Last Filed: 07/12/20 15:53> Subjective As above. Patient doing well today. Her pain is improved. She would like to go home. Stable for discharge from our point of view. Objective - Vital Signs Vital signs: Vital Signs Temp 97.9 F 07/12/20 08:15 Pulse 56 L 07/12/20 08:15 Resp 16 07/12/20 08:15 BP 152/95 07/12/20 08:15 Pulse Ox 97 07/12/20 08:15 Intake & Output 07/11/20 07/12/20 07/12/20 18:59 06:59 18:59 Output Total 200 Balance -200 Output: Urine 200 Other: Voiding Method Toilet # Voids 3 1 1 - Labs CBC & Chem 7: 07/12/20 04:04 07/12/20 04:04 Labs: Abnormal Lab Results - Last 24 Hours (Table) 07/12/20 07/12/20 Range/Units 04:04 04:04 RBC 3.12 L (3.80-5.40) m/uL Hgb 10.0 L (11.4-16.0) gm/dL Hct 29.2 L (34.0-46.0) % Creatinine 0.44 L (0.52-1.04) mg/dL Calcium 8.3 L (8.4-10.2) mg/dL ALT 110 H (4-34) U/L Total Protein 5.0 L (6.3-8.2) g/dL Albumin 2.5 L (3.5-5.0) g/dL Microbiology - Last 24 Hours (Table) 07/08/20 08:52 Blood Culture - Preliminary Blood No Growth after 96 hours 07/06/20 08:24 Blood Culture - Final Blood No Growth after 144 hours Assessment and Plan (1) Cholecystitis Current Visit: Yes Status: Acute Code(s): K81.9 - CHOLECYSTITIS, UNSPECIFIED SNOMED Code(s): 15878426
--- NOTE | 2020-07-12 13:34 | P.PN ---
Subjective Progress Note Date: 07/12/20 HISTORY OF PRESENT ILLNESS This is a 24-year-old female who presented to the hospital for sepsis and left sided pyelonephritis and urinary tract infection. Patient is status post cystoscopy and ureteral stent placement. Patient is currently on cefepime 2 g IV piggyback every 12 hours. Patient states that she continues to have left-sided abdominal pain and flank pain. She states the whole left side is hurting her. She states she has occasional nausea. No vomiting. She complains of abdominal bloating. She continues to have hematuria. CBC is 4.2, hemoglobin 10, platelet count 87. Creatinine 0.75. Patient did have a jump in her liver function tests with AST of 225 and ALT 245. Attending has ordered a liver ultrasound and will change this to a full abdomen ultrasound to further evaluate renal system as well. Urine culture is still showing gram-negative bacilli. Blood cultures no growth at 48 hours. 07/12: Patient is status post microscopic cholecystectomy from July 09. Patient is being prepared for discharge home today. Abdominal pain continues to improve. No nausea or vomiting. No diarrhea. She's been afebrile, heart rate 66, blood pressure 152/95, pulse ox 97% on room air. WBC 4.8, hemoglobin 10, creatinine 0.44. Total bilirubin 0.3, AST 32, ALT 110, alk phos is 119. PHYSICAL EXAMINATION Gen: This is a 24-year-old female. Patient is resting in bed. HEENT: Head is atraumatic, normocephalic. Pupils equal, round. Sclerae is anicteric. NECK: Supple. No JVD. No lymphadenopathy. LUNGS: Clear to auscultation. No wheezes or rhonchi. No intercostal retractions. HEART: Regular rate and rhythm. No murmur. ABDOMEN: Soft. Bowel sounds are present. No masses. No tenderness. EXTREMITIES: No pedal edema. No calf tenderness. NEUROLOGICAL: Patient is awake, alert and oriented x3. ASSESSMENT Sepsis and left-sided pyelonephritis, E. coli UTI Acute cholecystitis PLAN Continue Rocephin 2 g IV piggyback daily Recommend ciprofloxacin 500 mg twice daily for 10 days at discharge, prescription has been sent to her pharmacy. Patient is cleared by ID for discharge home. The above dictated assessment and findings were discussed with Dr. Beavers. The impression and plan of care have been directed as dictated. Jael Sanches nurse practitioner acting as scribe for Dr. Beavers. Objective - Vital Signs Vital signs: Vital Signs Temp 97.9 F 07/12/20 08:15 Pulse 56 L 07/12/20 08:15 Resp 16 07/12/20 08:15 BP 152/95 07/12/20 08:15 Pulse Ox 97 07/12/20 08:15 Intake & Output 07/11/20 07/12/20 07/12/20 18:59 06:59 18:59 Output Total 200 Balance -200 Output: Urine 200 Other: Voiding Method Toilet # Voids 3 1 - Labs CBC & Chem 7: 07/12/20 04:04 07/12/20 04:04 Labs: Abnormal Lab Results - Last 24 Hours (Table) 07/12/20 07/12/20 Range/Units 04:04 04:04 RBC 3.12 L (3.80-5.40) m/uL Hgb 10.0 L (11.4-16.0) gm/dL Hct 29.2 L (34.0-46.0) % Creatinine 0.44 L (0.52-1.04) mg/dL Calcium 8.3 L (8.4-10.2) mg/dL ALT 110 H (4-34) U/L Total Protein 5.0 L (6.3-8.2) g/dL Albumin 2.5 L (3.5-5.0) g/dL Microbiology - Last 24 Hours (Table) 07/08/20 08:52 Blood Culture - Preliminary Blood No Growth after 96 hours 07/06/20 08:24 Blood Culture - Final Blood No Growth after 144 hours
--- NOTE | 2020-07-12 15:26 | P.PN ---
Subjective Progress Note Date: 07/12/20 Principal diagnosis: Shortness of breath due to intra-abdominal process Small bilateral pleural effusion likely transudative Bilateral basal compressive atelectasis due to intra-abdominal process Acute cholecystitis status post cholecystectomy Left-sided pyelonephritis and Urinary tract infection due to gram-negative rods E. coli Left-sided hydroureter and urinary tract calculi status post cystoscopy left retrograde pyelogram and left ureter stent placement 07/12/2020, overall patient continued do well tolerating by mouth well no nausea vomiting is present, denies any chest pain, problem associated with numbness and swelling improved significantly of the lower extremities, patient has been doing incentive spirometry regularly 07/11/2020, patient seen eval examined during the rounds labs reviewed medications reviewed care plan discussed with the patient, overall respiratory status continued to improve patient actively participating in deep breathing exercises incentive spirometry, urine cultures positive for E. coli sensitive to antibiotics currently on Rocephin 2 g daily, patient is status post cholecystectomy This is a pleasant 24-year-old female she smoke quarter to half pack per day, she came into the hospital with left flank pain and also right-sided abdominal pain workup and evaluation revealed presence of the left-sided hydroureter due to renal calculi as well as a right-sided cholecystitis, patient is being considered for laparoscopy cholecystectomy, patient had initial CAT scan were negative for any active pulmonary process at the time admission however yesterday shows some atelectasis and small effusion I was asked to evaluate the patient, on specific questioning denies any cough or sputum production does have mild shortness of breath, patient is on room air oxygen saturation is mid 90s, patient remains on broad-spectrum antibiotics, Objective - Vital Signs Vital signs: Vital Signs Temp 97.9 F 07/12/20 08:15 Pulse 56 L 07/12/20 08:15 Resp 16 07/12/20 08:15 BP 152/95 07/12/20 08:15 Pulse Ox 97 07/12/20 08:15 Intake & Output 07/11/20 07/12/20 07/12/20 18:59 06:59 18:59 Output Total 200 Balance -200 Output: Urine 200 Other: Voiding Method Toilet # Voids 3 1 1 - Exam - Constitutional General appearance: average body habitus, cooperative, disheveled - EENT Eyes: EOMI, PERRLA ENT: hearing grossly normal Ears: bilateral: normal - Neck Neck: normal ROM Carotids: bilateral: upstroke normal Thyroid: bilateral: normal size - Respiratory Respiratory: bilateral: CTA - Cardiovascular Rhythm: regular Heart sounds: normal: S1, S2 - Gastrointestinal General gastrointestinal: decreased bowel sounds, soft - Integumentary Integumentary: normal turgor - Neurologic Neurologic: CNII-XII intact - Musculoskeletal Musculoskeletal: gait normal, generalized weakness, strength equal bilaterally - Psychiatric Psychiatric: A&O x's 3, appropriate affect, intact judgment & insight - Labs CBC & Chem 7: 07/12/20 04:04 07/12/20 04:04 Labs: Abnormal Lab Results - Last 24 Hours (Table) 07/12/20 07/12/20 Range/Units 04:04 04:04 RBC 3.12 L (3.80-5.40) m/uL Hgb 10.0 L (11.4-16.0) gm/dL Hct 29.2 L (34.0-46.0) % Creatinine 0.44 L (0.52-1.04) mg/dL Calcium 8.3 L (8.4-10.2) mg/dL ALT 110 H (4-34) U/L Total Protein 5.0 L (6.3-8.2) g/dL Albumin 2.5 L (3.5-5.0) g/dL Microbiology - Last 24 Hours (Table) 07/08/20 08:52 Blood Culture - Preliminary Blood No Growth after 96 hours 07/06/20 08:24 Blood Culture - Final Blood No Growth after 144 hours Assessment and Plan Assessment: Shortness of breath due to intra-abdominal process Small bilateral pleural effusion likely transudative Bilateral basal compressive atelectasis due to intra-abdominal process Acute cholecystitis status post cholecystectomy Left-sided pyelonephritis and Urinary tract infection due to gram-negative rods E. coli Left-sided hydroureter and urinary tract calculi status post cystoscopy left retrograde pyelogram and left ureter stent placement Plan: Deep breathing exercise incentive spirometry Monitor clinical course closely Continue antibiotics Agree to proceed with surgical evaluation for acute cholecystitis Chest x-ray findings reviewed Further recommendations pending plan of care as per clinical response of the patient Time with Patient: Greater than 30
== END 2020-07-12 13:03 | disposition home or self-care (01) | DRG 854 ==
LOC: EC 23:04 → 6PED 07-06 01:31
PROVIDERS: ADMIT Family Medicine; ATTEND Family Medicine
PROC: BT1F1ZZ Fluoroscopy of Left Kidney, Ureter and Bladder using Low Osmolar Contrast (ICD-10-PCS; 2020-07-06)
PROC: 0T778DZ Dilation of Left Ureter with Intraluminal Device, Via Natural or Artificial Opening Endoscopic (ICD-10-PCS; principal; 2020-07-06 07:30)
PROC: 0FT44ZZ Resection of Gallbladder, Percutaneous Endoscopic Approach (ICD-10-PCS; 2020-07-09)
DX: A41.51 Sepsis due to Escherichia coli [E. coli] (principal); N13.6 Pyonephrosis; K81.0 Acute cholecystitis; J90 Pleural effusion, not elsewhere classified; R18.8 Other ascites; J98.11 Atelectasis; Z20.822 Contact with and (suspected) exposure to COVID-19; F17.210 Nicotine dependence, cigarettes, uncomplicated; I10 Essential (primary) hypertension; Z87.440 Personal history of urinary (tract) infections; Z98.51 Tubal ligation status; Z83.2 Family history of diseases of the blood and blood-forming organs and certain disorders involving the immune mechanism
CPT/HCPCS: 36415; 71046; 74176; 74177; 74420; 76700; 80053; 80074; 81001; 81025; 83605; 83690; 85025; 87040; 87077; 87086; 87186; 87635; 88304; 96374; 96375; 96376; 99284

== ENCOUNTER 2020-07-17 11:11 | Emergency (ER) | payer OTHER ==
[2020-07-17 11:18] VITALS: TEMP 98.3
[2020-07-17] MEDS ORDERED: KETOROLAC 15 MG/ML 1 ML VIAL IVP STA (12:03)
[2020-07-17] MEDS ORDERED: SODIUM CHLORIDE 0.9% 1,000 ML IV STA (12:03)
[2020-07-17 12:45] LABS: Basophils % (A) 0 %; Eosinophils # (A) 0.1 k/uL (0-0.7); Eosinophils % (A) 1 %; HCT 37.2 % (34.0-46.0); HGB 12.3 gm/dL (11.4-16.0); Lymphocytes # (A) 1.1 k/uL (1.0-4.8); Lymphocytes % (A) 10 %; MCH 31.1 pg (25.0-35.0); MCHC 33.2 g/dL (31.0-37.0); MCV 93.7 fL (80.0-100.0); Mean Platelet Volume 7.5; Monocytes # (A) 0.4 k/uL (0-1.0); Monocytes % (A) 4 %; Neutrophils # (A) 8.4 k/uL (1.3-7.7); Neutrophils % (A) 83 %; Platelet Count 359 k/uL (150-450); RBC 3.97 m/uL (3.80-5.40); RDW 13.1 % (11.5-15.5); WBC 10.2 k/uL (3.8-10.6)
[2020-07-17 12:54] LABS: ALT 54 U/L (4-34); AST 19 U/L (14-36); African American GFR (CKD) >90 (>60 ml/min/1.73 sqM); Albumin 3.9 g/dL (3.5-5.0); Alkaline Phosphatase 116 U/L (38-126); Amylase 44 U/L (30-110); Anion Gap 9 mmol/L; Appearance,Urine Clear (Clear); Bilirubin,Urine Negative (Negative); Blood Urea Nitrogen 10 mg/dL (7-17); Blood,Urine Large (Negative); Calcium 9.9 mg/dL (8.4-10.2); Carbon Dioxide 31 mmol/L (22-30); Chloride 103 mmol/L (98-107); Color,Urine Yellow; Glucose 90 mg/dL (74-99); Glucose,Urine (UA) Negative (Negative); Ketones,Urine Negative (Negative); Leukocyte Esterase,Urine Trace (Negative); Lipase 41 U/L (23-300); Mucus,Urine Rare /hpf; Nitrite,Urine Negative (Negative); Non-African American GFR(CKD) >90 (>60 ml/min/1.73 sqM); Potassium 4.3 mmol/L (3.5-5.1); Protein,Urine Trace (Negative); RBC,Urine >182 /hpf (0-5); Sodium 143 mmol/L (137-145); Specific Gravity,Urine 1.013 (1.001-1.035); Squamous Epithelial Cell,Urine 2 /hpf (0-4); Total Bilirubin 0.4 mg/dL (0.2-1.3); Total Protein 7.4 g/dL (6.3-8.2); Urobilinogen,Urine <2.0 mg/dL (<2.0); WBC,Urine 15 /hpf (0-5)
[2020-07-17 13:00] LABS: Partial Thromboplastin Time 23.3 sec (22.0-30.0); Prothrombin Time 10.9 sec (9.0-12.0)
--- NOTE | 2020-07-17 13:06 | ED ---
Abdominal Pain HPI <Ernesto Ortega - Last Filed: 07/17/20 13:38> - General Source: patient Mode of arrival: ambulatory Limitations: no limitations <Steffi Anaya - Last Filed: 07/17/20 13:53> - General Chief Complaint: Abdominal Pain Stated Complaint: Kidney Problems Time Seen by Provider: 07/17/20 11:20 - History of Present Illness Initial Comments: Patient is a 24-year-old female presenting to the emergency Department with complaints of lower abdominal pain as well as hematuria that started yesterday. Patient is currently 11 days postop from left kidney stent placement as well as 8 days postop from cholecystectomy. Patient was admitted to this hospital for an infected kidney stone, a stent was placed by Dr. Preez and then a few days later had acute cholecystitis, this was removed by Dr. Pastor. Patient states she was recovering well after she was discharged but yesterday started noticing hematuria as well as some lower abdominal discomfort. She denies any fever or chills. She denies any nausea or vomiting, no diarrhea. She's been having regular bowel movements. She denies any other surgeries on her abdomen except for tubal ligation. She has no further complaints at this time. Upon arrival to the ER her vitals are stable. (Steffi Anaya) - Related Data Previous Rx's Medication Instructions Recorded Ciprofloxacin HCl [Cipro] 500 mg PO Q12HR #20 tablet 07/12/20 Docusate [Colace] 100 mg PO BID #30 capsule 07/12/20 HYDROcodone/APAP 7.5-325MG [[place] 1 tab PO Q6HR PRN 3 Days #12 tab 07/12/20 7.5-325] HYDROcodone/APAP 5-325MG [[place] 1 tab PO Q6HR PRN 3 Days #12 tab 07/17/20 5-325] Ibuprofen [Motrin] 600 mg PO Q8HR PRN #30 tab 07/17/20 Allergies Allergy/AdvReac Type Severity Reaction Status Date / Time No Known Allergies Allergy Verified 07/17/20 11:18 Review of Systems ROS Other: All systems not noted in ROS Statement are negative. <Ernesto Ortega - Last Filed: 07/17/20 13:38> ROS Other: All systems not noted in ROS Statement are negative. <Steffi Anaya - Last Filed: 07/17/20 13:53> ROS Statement: Those systems with pertinent positive or pertinent negative responses have been documented in the HPI. Past Medical History Past Medical History: Hypertension Additional Past Medical History / Comment(s): Patient has had 4 spontaneous vaginal deliveries ranging from 8 lbs. 9 oz.-9 lbs. 6 oz. History of HTN - states she took antihypertensives 3 years ago and just stopped taking them. History of Any Multi-Drug Resistant Organisms: None Reported Past Surgical History: Tubal Ligation Past Anesthesia/Blood Transfusion Reactions: No Reported Reaction Additional Past Anesthesia/Blood Transfusion Reaction / Comment(s): n o hx. Past Psychological History: No Psychological Hx Reported Smoking Status: Current every day smoker Past Alcohol Use History: None Reported Past Drug Use History: None Reported - Past Family History Brother(s) Additional Family Medical History / Comment(s): Hemophilia Father Family Medical History: No Reported History <Steffi Anaya - Last Filed: 07/17/20 13:53> General Exam Limitations: no limitations <Steffi Anaya - Last Filed: 07/17/20 13:53> - General Exam Comments Initial Comments: GENERAL: Patient is well-developed and well-nourished. Patient is nontoxic and in no acute distress. HEAD: Atraumatic, normocephalic. EYES: Pupils equal round and reactive to light, extraocular movements intact, sclera anicteric, conjunctiva are normal. Eyelids were unremarkable. ENT: TMs normal, nares patent, oropharynx clear without exudates. Moist mucous membranes. NECK: Normal range of motion, supple without lymphadenopathy or JVD. LUNGS: Unlabored respirations. Breath sounds clear to auscultation bilaterally and equal. No wheezes rales or rhonchi. HEART: Regular rate and rhythm without murmurs, rubs or gallops. ABDOMEN: Patient has some mild abdominal tenderness on the lower aspect, suprapubic as well is on the right side of the abdomen. Her incisions are clean dry and intact, no signs of infection, abdomen is not distended. Normoactive bowel sounds. No masses appreciated. : Deferred MUSCULOSKELETAL: Normal extremities with adequate strength and normal range of motion, no pitting or edema. No clubbing or cyanosis. NEUROLOGICAL: Patient is alert and oriented x 3. Motor and sensory are also intact. Cranial nerves II through XII grossly intact. Symmetrical smile. Normal speech, normal gait. PSYCH: Normal mood, normal affect. SKIN: Warm, Dry, normal turgor, no rashes or lesions noted. (Steffi Anaya) Course Vital Signs 07/17/20 11:15 Temperature 98.3 F Pulse Rate 83 Respiratory 16 Rate Blood Pressure 126/93 O2 Sat by Pulse 98 Oximetry Medical Decision Making - Lab Data Result diagrams: 07/17/20 12:20 07/17/20 12:20 <Ernesto Ortega - Last Filed: 07/17/20 13:38> - Lab Data Result diagrams: 07/17/20 12:20 07/17/20 12:20 <Steffi Anaya - Last Filed: 07/17/20 13:53> - Medical Decision Making I did discuss the case with Dr. Werner who recommends close outpatient follow-up with Dr. Perez (Ernesto Ortega) Patient is a 24-year-old female, 11 days postop from left sided stent placement by Dr. Perez, 8 days postop from cholecystectomy by Dr. Pastor. She is presenting for some mild lower abdomen tenderness as well as hematuria that started yesterday. No Fevers, her vitals are stable today. Labs show normal white count, stable kidney function, lactic acid is normal. Urine shows large amount of blood, no bacteria. KUB shows placement of the left stent, surgical clips, no other acute abnormalities. It was given some fluids and Toradol, she's been resting soundly. We did discuss case with Dr. Werner who is okay with patient being discharged home, she will continue on her Cipro. She'll follow-up with Dr. Perez. Patient is in agreement with this plan and care. She is requesting refill of her [place] and ibuprofen. I will give her a short course of both. Return parameters were discussed with the patient she verbalized understanding. Case discussed Dr. Ortega. (Steffi Anaya) - Lab Data Lab Results 07/17/20 07/17/20 07/17/20 Range/Units 12:20 12:20 12:20 WBC 10.2 (3.8-10.6) k/uL RBC 3.97 (3.80-5.40) m/uL Hgb 12.3 (11.4-16.0) gm/dL Hct 37.2 (34.0-46.0) % MCV 93.7 (80.0-100.0) fL MCH 31.1 (25.0-35.0) pg MCHC 33.2 (31.0-37.0) g/dL RDW 13.1 (11.5-15.5) % Plt Count 359 (150-450) k/uL MPV 7.5 Neutrophils % 83 % Lymphocytes % 10 % Monocytes % 4 % Eosinophils % 1 % Basophils % 0 % Neutrophils # 8.4 H (1.3-7.7) k/uL Lymphocytes # 1.1 (1.0-4.8) k/uL Monocytes # 0.4 (0-1.0) k/uL Eosinophils # 0.1 (0-0.7) k/uL Basophils # 0.0 (0-0.2) k/uL PT 10.9 (9.0-12.0) sec INR 1.0 (<1.2) APTT 23.3 (22.0-30.0) sec Sodium (137-145) mmol/L Potassium (3.5-5.1) mmol/L Chloride (98-107) mmol/L Carbon Dioxide (22-30) mmol/L Anion Gap mmol/L BUN (7-17) mg/dL Creatinine (0.52-1.04) mg/dL Est GFR (CKD-EPI)AfAm (>60 ml/min/1.73 sqM) Est GFR (CKD-EPI)NonAf (>60 ml/min/1.73 sqM) Glucose (74-99) mg/dL Plasma Lactic Acid Bob (0.7-2.0) mmol/L Calcium (8.4-10.2) mg/dL Total Bilirubin (0.2-1.3) mg/dL AST (14-36) U/L ALT (4-34) U/L Alkaline Phosphatase (38-126) U/L Total Protein (6.3-8.2) g/dL Albumin (3.5-5.0) g/dL Amylase (30-110) U/L Lipase (23-300) U/L Urine Color Yellow Urine Appearance Clear (Clear) Urine pH 8.0 (5.0-8.0) Ur Specific [place] 1.013 (1.001-1.035) Urine Protein Trace H (Negative) Urine Glucose (UA) Negative (Negative) Urine Ketones Negative (Negative) Urine Blood Large H (Negative) Urine Nitrite Negative (Negative) Urine Bilirubin Negative (Negative) Urine Urobilinogen <2.0 (<2.0) mg/dL Ur Leukocyte Esterase Trace H (Negative) Urine RBC >182 H (0-5) /hpf Urine WBC 15 H (0-5) /hpf Ur Squamous Epith Cells 2 (0-4) /hpf Urine Mucus Rare H (None) /hpf 07/17/20 07/17/20 Range/Units 12:20 12:20 WBC (3.8-10.6) k/uL RBC (3.80-5.40) m/uL Hgb (11.4-16.0) gm/dL Hct (34.0-46.0) % MCV (80.0-100.0) fL MCH (25.0-35.0) pg MCHC (31.0-37.0) g/dL RDW (11.5-15.5) % Plt Count (150-450) k/uL MPV Neutrophils % % Lymphocytes % % Monocytes % % Eosinophils % % Basophils % % Neutrophils # (1.3-7.7) k/uL Lymphocytes # (1.0-4.8) k/uL Monocytes # (0-1.0) k/uL Eosinophils # (0-0.7) k/uL Basophils # (0-0.2) k/uL PT (9.0-12.0) sec INR (<1.2) APTT (22.0-30.0) sec Sodium 143 (137-145) mmol/L Potassium 4.3 (3.5-5.1) mmol/L Chloride 103 (98-107) mmol/L Carbon Dioxide 31 H (22-30) mmol/L Anion Gap 9 mmol/L BUN 10 (7-17) mg/dL Creatinine 0.54 (0.52-1.04) mg/dL Est GFR (CKD-EPI)AfAm >90 (>60 ml/min/1.73 sqM) Est GFR (CKD-EPI)NonAf >90 (>60 ml/min/1.73 sqM) Glucose 90 (74-99) mg/dL Plasma Lactic Acid Bob 1.3 (0.7-2.0) mmol/L Calcium 9.9 (8.4-10.2) mg/dL Total Bilirubin 0.4 (0.2-1.3) mg/dL AST 19 (14-36) U/L ALT 54 H (4-34) U/L Alkaline Phosphatase 116 (38-126) U/L Total Protein 7.4 (6.3-8.2) g/dL Albumin 3.9 (3.5-5.0) g/dL Amylase 44 (30-110) U/L Lipase 41 (23-300) U/L Urine Color Urine Appearance (Clear) Urine pH (5.0-8.0) Ur Specific [place] (1.001-1.035) Urine Protein (Negative) Urine Glucose (UA) (Negative) Urine Ketones (Negative) Urine Blood (Negative) Urine Nitrite (Negative) Urine Bilirubin (Negative) Urine Urobilinogen (<2.0) mg/dL Ur Leukocyte Esterase (Negative) Urine RBC (0-5) /hpf Urine WBC (0-5) /hpf Ur Squamous Epith Cells (0-4) /hpf Urine Mucus (None) /hpf Disposition <Ernesto Ortega - Last Filed: 07/17/20 13:38> Is patient prescribed a controlled substance at d/c from ED?: Yes When asked, does pt state using other controlled substances?: No If prescribed controlled substance>3 days was MAPS reviewed?: Prescribed <3 Days If opioid is for acute pain is fill amount 7 days or less?: Yes If Rx opioid, was Start Talking consent form obtained?: Yes <Steffi Anaya - Last Filed: 07/17/20 13:53> Clinical Impression: Abdominal pain, Hematuria Disposition: HOME SELF-CARE Condition: Stable Instructions (If sedation given, give patient instructions): Hematuria (ED) Additional Instructions: Please return to the Emergency Department if symptoms worsen or any other concerns. Continue with her already prescribed antibiotic. Continue with pain medications for moderate to severe pain. Follow-up with urology as discussed. Prescriptions: Ibuprofen [Motrin] 600 mg PO Q8HR PRN #30 tab PRN Reason: Pain HYDROcodone/APAP 5-325MG [[place] 5-325] 1 tab PO Q6HR PRN 3 Days #12 tab PRN Reason: Pain Referrals: Remi Edwards MD [Primary Care Provider] - 1-2 days
--- NOTE | 2020-07-17 13:33 | XR ---
KUB HISTORY: Abdominal pain and hematuria Frontal KUB and [address] 07/08/2020, KUB 11/22/2017 There is been interval placement of a left double-J ureteral stent. Surgical clips are present within the right abdomen. There is no pneumoperitoneum or bowel obstruction. Lung bases are clear. Multiple calcifications are present within the pelvis which are likely authorization representative of phleboliths. IMPRESSION: Postop and postprocedural changes.
[2020-07-17 14:15] VITALS: BP 127/84; PULSE 62; RESP 17
== END 2020-07-17 14:22 | disposition home or self-care (01) ==
LOC: EC 11:11
DX: R10.30 Lower abdominal pain, unspecified (principal); R31.9 Hematuria, unspecified; R10.813 Right lower quadrant abdominal tenderness; I10 Essential (primary) hypertension; F17.200 Nicotine dependence, unspecified, uncomplicated
CPT/HCPCS: 36415; 80053; 82150; 83605; 83690; 85025; 85610; 85730; 81001; 87086; 74018; 99284; 96374; 96361 ×2; J1885

== ENCOUNTER 2020-08-20 07:16 | Emergency (ER) | payer OTHER ==
[2020-08-20 07:24] VITALS: RESP 16
[2020-08-20] MEDS ORDERED: MORPHINE SULFATE 4 MG/ML SYRINGE IV STA (07:40)
[2020-08-20] MEDS ORDERED: SODIUM CHLORIDE 0.9% 1,000 ML IV STA (07:40)
[2020-08-20] MEDS ORDERED: ONDANSETRON 4 MG/2 ML VIAL IVP STA (07:40)
[2020-08-20] MEDS ORDERED: KETOROLAC 15 MG/ML 1 ML VIAL IVP STA (07:40)
--- NOTE | 2020-08-20 07:55 | ED ---
Abdominal Pain HPI - General Chief Complaint: Abdominal Pain Stated Complaint: L side pain Time Seen by Provider: 08/20/20 07:36 Source: patient, family Mode of arrival: wheelchair Limitations: no limitations - History of Present Illness Initial Comments: Patient is a 24-year-old female presenting to the emergency Department with complaints of severe left-sided flank pain that started suddenly this morning. Patient was admitted to this hospital at the end of June for an infected stone, then had to have her gallbladder removed due to acute cholecystitis. Patient states she had a stent placed, that was removed last week. Patient states she has been doing better until early this morning, she woke up suddenly from her sleep with intermittent left-sided pain. She states this feels worse than her initial kidney infection. She continues to have hematuria, she's had this since the beginning of January. She has had multiple UTIs, positive urine cultures, she is currently on Bactrim. She denies any fevers, she is nauseous, no vomiting. She has been seeing Dr. Perez. She denies being at this time. She denies any chest pain or shortness of breath. She has no further complaints. Upon arrival to the ER, her vital signs are stable. - Related Data Home Medications Medication Instructions Recorded Confirmed Ibuprofen [Motrin] 800 mg PO Q8H PRN 08/20/20 08/20/20 Ondansetron [Zofran ODT] 4 mg PO Q4H PRN 08/20/20 08/20/20 Sulfamethox-Tmp 800-160Mg [Bactrim 1 tab PO Q12HR 08/20/20 08/20/20 DS 800-160 mg] Previous Rx's Medication Instructions Recorded HYDROcodone/APAP 5-325MG [[place] 1 tab PO Q6HR PRN 3 Days #12 tab 07/17/20 5-325] Ketorolac [Toradol] 10 mg PO Q8HR #10 tab 08/20/20 Ondansetron Odt [Zofran Odt] 4 mg PO Q8HR PRN #10 tab 08/20/20 Allergies Allergy/AdvReac Type Severity Reaction Status Date / Time No Known Allergies Allergy Verified 08/20/20 09:09 Review of Systems ROS Statement: Those systems with pertinent positive or pertinent negative responses have been documented in the HPI. ROS Other: All systems not noted in ROS Statement are negative. Past Medical History Past Medical History: Hypertension Additional Past Medical History / Comment(s): Patient has had 4 spontaneous vaginal deliveries ranging from 8 lbs. 9 oz.-9 lbs. 6 oz. History of HTN - states she took antihypertensives 3 years ago and just stopped taking them. History of Any Multi-Drug Resistant Organisms: MRSA Date of last positivie culture/infection: 08/10/20 MDRO Source:: MRSA URINE Past Surgical History: Tubal Ligation Past Anesthesia/Blood Transfusion Reactions: No Reported Reaction Additional Past Anesthesia/Blood Transfusion Reaction / Comment(s): n o hx. Past Psychological History: No Psychological Hx Reported Smoking Status: Current every day smoker Past Alcohol Use History: None Reported Past Drug Use History: None Reported - Past Family History Brother(s) Additional Family Medical History / Comment(s): Hemophilia Father Family Medical History: No Reported History General Exam - General Exam Comments Initial Comments: GENERAL: Patient is well-developed and well-nourished. Patient is nontoxic and in moderate distress. HEAD: Atraumatic, normocephalic. EYES: Pupils equal round and reactive to light, extraocular movements intact, sclera anicteric, conjunctiva are normal. Eyelids were unremarkable. ENT: TMs normal, nares patent, oropharynx clear without exudates. Moist mucous membranes. NECK: Normal range of motion, supple without lymphadenopathy or JVD. LUNGS: Unlabored respirations. Breath sounds clear to auscultation bilaterally and equal. No wheezes rales or rhonchi. HEART: Regular rate and rhythm without murmurs, rubs or gallops. ABDOMEN: Soft, left flank pain and tenderness, left side of the abdomen tenderness normoactive bowel sounds. No guarding, no rebound. No masses appreciated. : Deferred MUSCULOSKELETAL: Normal extremities with adequate strength and normal range of motion, no pitting or edema. No clubbing or cyanosis. NEUROLOGICAL: Patient is alert and oriented x 3. Motor and sensory are also intact. Cranial nerves II through XII grossly intact. Symmetrical smile. Normal speech, normal gait. PSYCH: Normal mood, normal affect. SKIN: Warm, Dry, normal turgor, no rashes or lesions noted. Limitations: no limitations Course Vital Signs 08/20/20 07:21 Temperature 97.6 F Pulse Rate 56 L Respiratory 16 Rate Blood Pressure 106/82 O2 Sat by Pulse 100 Oximetry Medical Decision Making - Medical Decision Making Patient is a 24-year-old female presenting with left flank pain as started suddenly this morning. She is in moderate distress upon arrival, vital signs are stable. She is currently on a Bactrim for UTI, recently had a left ureteral stent removed last week. She continues to have some hematuria. White count is normal, liver enzymes are slightly elevated, lactic acid is normal, lipase is normal. Urine shows hematuria, rare bacteria, urine hCG is not detected. CT of the abdomen shows removal of the left ureteral stent, new moderate left-sided hydronephrosis without obstructing stone clearly seen. This could be due to a recently passed stone. Moderate colonic fecal stasis. She states she has been having some constipation, she has been trying some stool softeners. He was given fluids, pain control, on reexamination, she's been resting comfortably, pain has decreased. I did discuss this patient with Dr. Perez who is okay with patient being discharged home and will follow-up in the office. I will give her a few tablets of Toradol to try for the pain, she will not take this with ibuprofen. I will also give her some more Zofran. Patient is stable for discharge. Patient is in agreement with this plan of care. Return parameters were discussed with the patient and they verbalized understanding. Case d iscussed with Dr. Sanchez. - Lab Data Result diagrams: 08/20/20 08:04 08/20/20 08:04 Lab Results 08/20/20 08/20/20 08/20/20 Range/Units 08:04 08:04 08:04 WBC 7.7 (3.8-10.6) k/uL RBC 4.25 (3.80-5.40) m/uL Hgb 12.9 (11.4-16.0) gm/dL Hct 38.9 (34.0-46.0) % MCV 91.6 (80.0-100.0) fL MCH 30.5 (25.0-35.0) pg MCHC 33.3 (31.0-37.0) g/dL RDW 13.4 (11.5-15.5) % Plt Count 203 (150-450) k/uL MPV 8.3 Neutrophils % 67 % Lymphocytes % 23 % Monocytes % 5 % Eosinophils % 3 % Basophils % 0 % Neutrophils # 5.2 (1.3-7.7) k/uL Lymphocytes # 1.7 (1.0-4.8) k/uL Monocytes # 0.4 (0-1.0) k/uL Eosinophils # 0.3 (0-0.7) k/uL Basophils # 0.0 (0-0.2) k/uL Sodium (137-145) mmol/L Potassium (3.5-5.1) mmol/L Chloride (98-107) mmol/L Carbon Dioxide (22-30) mmol/L Anion Gap mmol/L BUN (7-17) mg/dL Creatinine (0.52-1.04) mg/dL Est GFR (CKD-EPI)AfAm (>60 ml/min/1.73 sqM) Est GFR (CKD-EPI)NonAf (>60 ml/min/1.73 sqM) Glucose (74-99) mg/dL Plasma Lactic Acid Bob (0.7-2.0) mmol/L Calcium (8.4-10.2) mg/dL Total Bilirubin (0.2-1.3) mg/dL AST (14-36) U/L ALT (4-34) U/L Alkaline Phosphatase (38-126) U/L Total Protein (6.3-8.2) g/dL Albumin (3.5-5.0) g/dL Amylase (30-110) U/L Lipase (23-300) U/L Urine Color Yellow Urine Appearance Clear (Clear) Urine pH 6.0 (5.0-8.0) Ur Specific [place] 1.023 (1.001-1.035) Urine Protein Trace H (Negative) Urine Glucose (UA) Negative (Negative) Urine Ketones Negative (Negative) Urine Blood Large H (Negative) Urine Nitrite Negative (Negative) Urine Bilirubin Negative (Negative) Urine Urobilinogen 2.0 (<2.0) mg/dL Ur Leukocyte Esterase Small H (Negative) Urine RBC >182 H (0-5) /hpf Urine WBC 15 H (0-5) /hpf Ur Squamous Epith Cells 4 (0-4) /hpf Urine Bacteria Rare H (None) /hpf Urine Mucus Many H (None) /hpf Urine HCG, Qual Not Detected (Not Detectd) 08/20/20 08/20/20 Range/Units 08:04 08:04 WBC (3.8-10.6) k/uL RBC (3.80-5.40) m/uL Hgb (11.4-16.0) gm/dL Hct (34.0-46.0) % MCV (80.0-100.0) fL MCH (25.0-35.0) pg MCHC (31.0-37.0) g/dL RDW (11.5-15.5) % Plt Count (150-450) k/uL MPV Neutrophils % % Lymphocytes % % Monocytes % % Eosinophils % % Basophils % % Neutrophils # (1.3-7.7) k/uL Lymphocytes # (1.0-4.8) k/uL Monocytes # (0-1.0) k/uL Eosinophils # (0-0.7) k/uL Basophils # (0-0.2) k/uL Sodium 137 (137-145) mmol/L Potassium 4.1 (3.5-5.1) mmol/L Chloride 101 (98-107) mmol/L Carbon Dioxide 26 (22-30) mmol/L Anion Gap 10 mmol/L BUN 17 (7-17) mg/dL Creatinine 0.90 (0.52-1.04) mg/dL Est GFR (CKD-EPI)AfAm >90 (>60 ml/min/1.73 sqM) Est GFR (CKD-EPI)NonAf 89 (>60 ml/min/1.73 sqM) Glucose 98 (74-99) mg/dL Plasma Lactic Acid Bob 0.9 (0.7-2.0) mmol/L Calcium 10.1 (8.4-10.2) mg/dL Total Bilirubin 0.8 (0.2-1.3) mg/dL AST 206 H (14-36) U/L ALT 193 H (4-34) U/L Alkaline Phosphatase 108 (38-126) U/L Total Protein 8.1 (6.3-8.2) g/dL Albumin 5.0 (3.5-5.0) g/dL Amylase 44 (30-110) U/L Lipase 58 (23-300) U/L Urine Color Urine Appearance (Clear) Urine pH (5.0-8.0) Ur Specific [place] (1.001-1.035) Urine Protein (Negative) Urine Glucose (UA) (Negative) Urine Ketones (Negative) Urine Blood (Negative) Urine Nitrite (Negative) Urine Bilirubin (Negative) Urine Urobilinogen (<2.0) mg/dL Ur Leukocyte Esterase (Negative) Urine RBC (0-5) /hpf Urine WBC (0-5) /hpf Ur Squamous Epith Cells (0-4) /hpf Urine Bacteria (None) /hpf Urine Mucus (None) /hpf Urine HCG, Qual (Not Detectd) Disposition Clinical Impression: Left flank pain, Nausea & vomiting Disposition: HOME SELF-CARE Condition: Stable Instructions (If sedation given, give patient instructions): Flank Pain (ED) Additional Instructions: Please return to the Emergency Department if symptoms worsen or any other concerns. Continue with your already prescribed antibiotics. May take Zofran for nausea. Trial of Toradol for any increase in pain, did not take this medication with ibuprofen. Please follow-up with your urologist as discussed. Prescriptions: Ketorolac [Toradol] 10 mg PO Q8HR #10 tab Ondansetron Odt [Zofran Odt] 4 mg PO Q8HR PRN #10 tab PRN Reason: Nausea Is patient prescribed a controlled substance at d/c from ED?: No Referrals: Remi Edwards MD [Primary Care Provider] - 1-2 days Isaac Perez MD [Family Provider] - 1-2 days
[2020-08-20 08:22] LABS: Basophils % (A) 0 %; Eosinophils # (A) 0.3 k/uL (0-0.7); Eosinophils % (A) 3 %; HCT 38.9 % (34.0-46.0); HGB 12.9 gm/dL (11.4-16.0); Lymphocytes # (A) 1.7 k/uL (1.0-4.8); Lymphocytes % (A) 23 %; MCH 30.5 pg (25.0-35.0); MCHC 33.3 g/dL (31.0-37.0); MCV 91.6 fL (80.0-100.0); Mean Platelet Volume 8.3; Monocytes # (A) 0.4 k/uL (0-1.0); Monocytes % (A) 5 %; Neutrophils # (A) 5.2 k/uL (1.3-7.7); Neutrophils % (A) 67 %; Platelet Count 203 k/uL (150-450); RBC 4.25 m/uL (3.80-5.40); RDW 13.4 % (11.5-15.5); WBC 7.7 k/uL (3.8-10.6)
[2020-08-20 08:34] LABS: ALT 193 U/L (4-34); AST 206 U/L (14-36); African American GFR (CKD) >90 (>60 ml/min/1.73 sqM); Alkaline Phosphatase 108 U/L (38-126); Amylase 44 U/L (30-110); Anion Gap 10 mmol/L; Blood Urea Nitrogen 17 mg/dL (7-17); Calcium 10.1 mg/dL (8.4-10.2); Carbon Dioxide 26 mmol/L (22-30); Chloride 101 mmol/L (98-107); Glucose 98 mg/dL (74-99); Lipase 58 U/L (23-300); Non-African American GFR(CKD) 89 (>60 ml/min/1.73 sqM); Potassium 4.1 mmol/L (3.5-5.1); Sodium 137 mmol/L (137-145); Total Bilirubin 0.8 mg/dL (0.2-1.3); Total Protein 8.1 g/dL (6.3-8.2)
--- NOTE | 2020-08-20 08:56 | CT ---
EXAMINATION TYPE: CT abdomen pelvis wo con DATE OF EXAM: 08/20/2020 HISTORY: Lt flank pain CT DLP: 461.6 mGycm. Automated Exposure Control for Dose Reduction was Utilized. TECHNIQUE: CT scan of the abdomen and pelvis is performed without oral or IV contrast. COMPARISON: CT abdomen and pelvis July 08, 2020 FINDINGS: Within the limitations of a non-contrast study, the following observations are made. LUNG BASES: No significant abnormality is appreciated. LIVER/GB: Interval cholecystectomy. Liver size stable and felt upper limits of normal. PANCREAS: No significant abnormality is seen. SPLEEN: Spleen normal in size currently, felt less prominent from prior. ADRENALS: No significant abnormality is seen. KIDNEYS: Few tiny bilateral punctate nonobstructing calculi throughout the right kidney, estimate 5-8 calculi measuring under 2 mm in size seen best on coronal images. There is 2 to 3 mm nonobstructing calculus lower pole left kidney axial image 51. Interval removal of left ureter stent. No right-sided hydronephrosis. There is new moderate left-sided hydronephrosis. Scattered bilateral pelvic phleboli ths. No obstructing calculus clearly seen. No intraluminal calculus in the poorly distended bladder BOWEL: Normal-appearing appendix from cecum. Moderate to severe thecal prominence in the right and pr oximal transverse colon. No suspicious small or large bowel dilatation. Suboptimal without enteric co ntrast in a patient having little intra-abdominal fat. GENITAL ORGANS: Anteverted uterus. Roughly 2.2 cm low dense lesion right ovary axial image 121 likely corresponds to prior visualized lesion image 74, suspect thin-walled cyst. Marked interval improveme nt in significant pelvic ascites seen on prior study. LYMPH NODES: No greater than 1cm abdominal or pelvic lymph nodes are appreciated. OSSEOUS STRUCTURES: No significant abnormality is seen. OTHER: No significant additional abnormality is seen. IMPRESSION: 1. Interval removal of left double-J ureter stent. Bilateral small renal calculi noted. New moderate left-sided hydronephrosis without obstructing stone clearly seen. Consider recently passed stone or u reteral vesicle reflux as possibly etiologies. 2. New moderate to severe proximal colonic fecal stasis. Overall nonobstructive bowel gas pattern. 3. Interval resolution of peritoneal ascites. Interval cholecystectomy change is noted.
[2020-08-20 09:03] LABS: Appearance,Urine Clear (Clear); Bacteria,Urine Rare /hpf; Bilirubin,Urine Negative (Negative); Blood,Urine Large (Negative); Color,Urine Yellow; Glucose,Urine (UA) Negative (Negative); Ketones,Urine Negative (Negative); Leukocyte Esterase,Urine Small (Negative); Mucus,Urine Many /hpf; Nitrite,Urine Negative (Negative); Protein,Urine Trace (Negative); RBC,Urine >182 /hpf (0-5); Specific Gravity,Urine 1.023 (1.001-1.035); Squamous Epithelial Cell,Urine 4 /hpf (0-4); WBC,Urine 15 /hpf (0-5)
[2020-08-20 10:35] VITALS: BP 124/73; PULSE 76; TEMP 98.5
== END 2020-08-20 10:38 | disposition home or self-care (01) ==
LOC: EC 07:16
DX: N13.2 Hydronephrosis with renal and ureteral calculous obstruction (principal); K21.9 Gastro-esophageal reflux disease without esophagitis; I10 Essential (primary) hypertension; F17.200 Nicotine dependence, unspecified, uncomplicated; Z79.1 Long term (current) use of non-steroidal anti-inflammatories (NSAID); Z79.899 Other long term (current) drug therapy; Z87.440 Personal history of urinary (tract) infections; Z90.49 Acquired absence of other specified parts of digestive tract
CPT/HCPCS: 36415; 80053; 82150; 83605; 83690; 85025; 81001; 81025; 87086; 74176; 99284; 96374; 96375; 96361; J2270; J2405; J1885

== ENCOUNTER → 2020-10-21 | Outpatient (CLI) | payer OTHER ==
--- NOTE | 2020-10-21 15:55 | US ---
EXAMINATION TYPE: US kidneys/renal and bladder DATE OF EXAM: 10/21/2020 COMPARISON: CT July 08, 2020 and August 20, 2020 CLINICAL HISTORY: N13.30 Unspecified hydronephrosis. EXAM MEASUREMENTS: Right Kidney: 12.3 x 3.8 x 4.6 cm Left Kidney: 12.1 x 4.8 x 4.9 cm Right Kidney: mild hydro vs prominent renal pelvis Left Kidney: mild hydro Bladder: wnl Left jet seen, right no seen There is suspected extrarenal pelvis right. Mild/moderate left-sided hydronephrosis currently No neph rolithiasis is seen. No masses are identified. The urinary bladder is anechoic. Bilateral ureteral jets are not seen. IMPRESSION: Mild to moderate left-sided hydronephrosis remains present on today's study.
== END | disposition home or self-care (01) ==
LOC: RADUSWWP 15:13
PROVIDERS: ATTEND Urology
DX: N13.30 Unspecified hydronephrosis (principal)
CPT/HCPCS: 76770

== ENCOUNTER 2020-10-30 12:32 | Emergency (ER) | payer OTHER ==
[2020-10-30 12:36] VITALS: RESP 18
--- NOTE | 2020-10-30 13:01 | ED ---
General Adult HPI - General Chief complaint: Back Pain/Injury Stated complaint: R kidney pain Time Seen by Provider: 10/30/20 12:59 Source: patient Mode of arrival: ambulatory Limitations: no limitations - History of Present Illness Initial comments: Patient presents to the ED with her boyfriend for evaluation. Patient states that she bent over to help her mother with something yesterday, and she states that when she stood back up, she developed sudden right lumbar back pain. Patient states that her back pain has been getting worse since then, and she states that her pain is worse with changes in position. Patient also states that she has issues with her kidneys, and she states that she is scheduled to have a procedure done by her urologist (Dr. Rincon) on Sunday. Patient denies direct back trauma, fall, leg pain/numbness/weakness, fever or chills, headache, chest pain, dyspnea, dizziness, abdominal pain, nausea or vomiting, dysuria/hematuria/urinary frequency/urinary symptoms, or any other symptoms or complaints. Patient states that she took a dose of [place] earlier today without much relief of her pain. - Related Data Home Medications Medication Instructions Recorded Confirmed Ibuprofen [Motrin] 800 mg PO Q8H PRN 08/20/20 08/20/20 Ondansetron [Zofran ODT] 4 mg PO Q4H PRN 08/20/20 08/20/20 Sulfamethox-Tmp 800-160Mg [Bactrim 1 tab PO Q12HR 08/20/20 08/20/20 DS 800-160 mg] Previous Rx's Medication Instructions Recorded HYDROcodone/APAP 5-325MG [[place] 1 tab PO Q6HR PRN 3 Days #12 tab 07/17/20 5-325] Ketorolac [Toradol] 10 mg PO Q8HR #10 tab 08/20/20 Ondansetron Odt [Zofran Odt] 4 mg PO Q8HR PRN #10 tab 08/20/20 Allergies Allergy/AdvReac Type Severity Reaction Status Date / Time No Known Allergies Allergy Verified 10/30/20 12:33 Review of Systems ROS Statement: Those systems with pertinent positive or pertinent negative responses have been documented in the HPI. ROS Other: All systems not noted in ROS Statement are negative. Past Medical History Past Medical History: Hypertension Additional Past Medical History / Comment(s): Patient has had 4 spontaneous v aginal deliveries ranging from 8 lbs. 9 oz.-9 lbs. 6 oz. History of HTN - states she took antihypertensives 3 years ago and just stopped taking them. History of Any Multi-Drug Resistant Organisms: MRSA Date of last positivie culture/infection: 08/10/20 MDRO Source:: MRSA URINE Past Surgical History: Tubal Ligation Past Anesthesia/Blood Transfusion Reactions: No Reported Reaction Additional Past Anesthesia/Blood Transfusion Reaction / Comment(s): n o hx. Past Psychological History: No Psychological Hx Reported Smoking Status: Current every day smoker Past Alcohol Use History: None Reported Past Drug Use History: None Reported - Past Family History Brother(s) Additional Family Medical History / Comment(s): Hemophilia Father Family Medical History: No Reported History General Exam Limitations: no limitations General appearance: alert, in no apparent distress Head exam: Present: atraumatic, normocephalic Eye exam: Present: normal appearance, EOMI ENT exam: Present: mucous membranes moist Neck exam: Present: other (Trachea is in midline) Respiratory exam: Present: normal lung sounds bilaterally. Absent: respiratory distress, wheezes, rales, rhonchi, stridor Cardiovascular Exam: Present: regular rate, normal rhythm, normal heart sounds, other (Normal radial pulses bilaterally) GI/Abdominal exam: Present: soft. Absent: distended, tenderness, guarding Extremities exam: Present: full ROM. Absent: tenderness, pedal edema Back exam: Present: normal inspection, other (Mild right lumbar tenderness). Absent: CVA tenderness (R), CVA tenderness (L) Neurological exam: Present: alert, oriented X3, other (Patient has no evidence of lower extremity neurological deficit or saddle anesthesia on examination). Absent: motor sensory deficit Psychiatric exam: Present: normal affect, normal mood Skin exam: Present: warm, dry, intact, normal color Course Vital Signs 10/30/20 12:33 Temperature 97.8 F Pulse Rate 102 H Respiratory 18 Rate Blood Pressure 109/66 O2 Sat by Pulse 100 Oximetry Medical Decision Making - Medical Decision Making Patient's pain has improved with ED treatment. Patient's UA and renal/bladder ultrasound are fairly unremarkable. Patient's left side hydronephrosis has improved compared to last exam. Patient is scheduled to see her urologist on Wednesday. Given the patient's reported history and physical examination, I suspect that the patient's pain is likely musculoskeletal in etiology. Patient denies having any lower extremity neurological deficits or urinary retention/incontinence. Patient has a normal lower extremity neurological exam. Will discharge patient home with her boyfriend at this time. Patient was counseled about lumbar back pain, and she was clearly explained return and follow-up instructions. Patient was also instructed to follow up closely with her primary care provider. Patient feels comfortable with this plan. - Lab Data Result diagrams: 10/30/20 13:16 10/30/20 13:16 Lab Results 10/30/20 10/30/20 10/30/20 Range/Units 13:16 13:16 13:28 WBC 8.7 (3.8-10.6) k/uL RBC 4.46 (3.80-5.40) m/uL Hgb 13.1 (11.4-16.0) gm/dL Hct 41.0 (34.0-46.0) % MCV 92.0 (80.0-100.0) fL MCH 29.4 (25.0-35.0) pg MCHC 32.0 (31.0-37.0) g/dL RDW 13.5 (11.5-15.5) % Plt Count 172 (150-450) k/uL MPV 9.1 Neutrophils % 68 % Lymphocytes % 19 % Monocytes % 5 % Eosinophils % 7 % Basophils % 0 % Neutrophils # 6.0 (1.3-7.7) k/uL Lymphocytes # 1.6 (1.0-4.8) k/uL Monocytes # 0.4 (0-1.0) k/uL Eosinophils # 0.6 (0-0.7) k/uL Basophils # 0.0 (0-0.2) k/uL Sodium 141 (137-145) mmol/L Potassium 4.6 (3.5-5.1) mmol/L Chloride 106 (98-107) mmol/L Carbon Dioxide 28 (22-30) mmol/L Anion Gap 7 mmol/L BUN 15 (7-17) mg/dL Creatinine 0.63 (0.52-1.04) mg/dL Est GFR (CKD-EPI)AfAm >90 (>60 ml/min/1.73 sqM) Est GFR (CKD-EPI)NonAf >90 (>60 ml/min/1.73 sqM) Glucose 97 (74-99) mg/dL Calcium 9.6 (8.4-10.2) mg/dL Urine Color Yellow Urine Appearance Cloudy H (Clear) Urine pH 7.5 (5.0-8.0) Ur Specific [place] 1.023 (1.001-1.035) Urine Protein Trace H (Negative) Urine Glucose (UA) Negative (Negative) Urine Ketones Negative (Negative) Urine Blood Negative (Negative) Urine Nitrite Negative (Negative) Urine Bilirubin Negative (Negative) Urine Urobilinogen <2.0 (<2.0) mg/dL Ur Leukocyte Esterase Negative (Negative) Urine RBC 3 (0-5) /hpf Urine WBC 4 (0-5) /hpf Ur Squamous Epith Cells 6 H (0-4) /hpf Urine Mucus Occasional H (None) /hpf Urine HCG, Qual (Not Detectd) 10/30/20 Range/Units 13:28 WBC (3.8-10.6) k/uL RBC (3.80-5.40) m/uL Hgb (11.4-16.0) gm/dL Hct (34.0-46.0) % MCV (80.0-100.0) fL MCH (25.0-35.0) pg MCHC (31.0-37.0) g/dL RDW (11.5-15.5) % Plt Count (150-450) k/uL MPV Neutrophils % % Lymphocytes % % Monocytes % % Eosinophils % % Basophils % % Neutrophils # (1.3-7.7) k/uL Lymphocytes # (1.0-4.8) k/uL Monocytes # (0-1.0) k/uL Eosinophils # (0-0.7) k/uL Basophils # (0-0.2) k/uL Sodium (137-145) mmol/L Potassium (3.5-5.1) mmol/L Chloride (98-107) mmol/L Carbon Dioxide (22-30) mmol/L Anion Gap mmol/L BUN (7-17) mg/dL Creatinine (0.52-1.04) mg/dL Est GFR (CKD-EPI)AfAm (>60 ml/min/1.73 sqM) Est GFR (CKD-EPI)NonAf (>60 ml/min/1.73 sqM) Glucose (74-99) mg/dL Calcium (8.4-10.2) mg/dL Urine Color Urine Appearance (Clear) Urine pH (5.0-8.0) Ur Specific [place] (1.001-1.035) Urine Protein (Negative) Urine Glucose (UA) (Negative) Urine Ketones (Negative) Urine Blood (Negative) Urine Nitrite (Negative) Urine Bilirubin (Negative) Urine Urobilinogen (<2.0) mg/dL Ur Leukocyte Esterase (Negative) Urine RBC (0-5) /hpf Urine WBC (0-5) /hpf Ur Squamous Epith Cells (0-4) /hpf Urine Mucus (None) /hpf Urine HCG, Qual Not Detected (Not Detectd) - Radiology Data Radiology results: report reviewed (Renal and bladder ultrasound: Left side mild hydronephrosis which is decreased compared to last exam) Disposition Clinical Impression: Lumbar back pain Disposition: HOME SELF-CARE Condition: Stable Instructions (If sedation given, give patient instructions): Acute Low Back Pain (ED) Additional Instructions: Return to the ER immediately should you develop new or worsening pain, leg numbness or weakness, trouble controlling your bladder or bowels, a fever, shortness of breath, vomiting, feeling dizzy or faint, or new or worsening symptoms. Follow up closely with your primary care provider. Is patient prescribed a controlled substance at d/c from ED?: No Referrals: None,Stated [Primary Care Provider] - 1-2 days Adam Pak MD [REFERRING] - 1-2 days Time of Disposition: 14:44
[2020-10-30] MEDS ORDERED: HYDROmorphone 1 MG/ML 1 ML SYRINGE IM STA (13:08)
[2020-10-30] MEDS ORDERED: HYDROmorphone 1 MG/ML 1 ML SYRINGE IVP STA (13:26)
[2020-10-30 13:30] LABS: Basophils % (A) 0 %; Eosinophils # (A) 0.6 k/uL (0-0.7); Eosinophils % (A) 7 %; HGB 13.1 gm/dL (11.4-16.0); Lymphocytes # (A) 1.6 k/uL (1.0-4.8); Lymphocytes % (A) 19 %; MCH 29.4 pg (25.0-35.0); Mean Platelet Volume 9.1; Monocytes # (A) 0.4 k/uL (0-1.0); Monocytes % (A) 5 %; Neutrophils % (A) 68 %; Platelet Count 172 k/uL (150-450); RBC 4.46 m/uL (3.80-5.40); RDW 13.5 % (11.5-15.5); WBC 8.7 k/uL (3.8-10.6)
[2020-10-30 13:40] LABS: African American GFR (CKD) >90 (>60 ml/min/1.73 sqM); Anion Gap 7 mmol/L; Blood Urea Nitrogen 15 mg/dL (7-17); Calcium 9.6 mg/dL (8.4-10.2); Carbon Dioxide 28 mmol/L (22-30); Chloride 106 mmol/L (98-107); Glucose 97 mg/dL (74-99); Non-African American GFR(CKD) >90 (>60 ml/min/1.73 sqM); Potassium 4.6 mmol/L (3.5-5.1); Sodium 141 mmol/L (137-145)
[2020-10-30 13:41] LABS: Appearance,Urine Cloudy (Clear); Bilirubin,Urine Negative (Negative); Blood,Urine Negative (Negative); Color,Urine Yellow; Glucose,Urine (UA) Negative (Negative); Ketones,Urine Negative (Negative); Leukocyte Esterase,Urine Negative (Negative); Mucus,Urine Occasional /hpf; Nitrite,Urine Negative (Negative); PH, Urine 7.5 (5.0-8.0); Protein,Urine Trace (Negative); RBC,Urine 3 /hpf (0-5); Specific Gravity,Urine 1.023 (1.001-1.035); Squamous Epithelial Cell,Urine 6 /hpf (0-4); Urobilinogen,Urine <2.0 mg/dL (<2.0); WBC,Urine 4 /hpf (0-5)
--- NOTE | 2020-10-30 14:15 | US ---
EXAMINATION TYPE: US renals and bladder DATE OF EXAM: 10/30/2020 COMPARISON: 10/21/2020 CLINICAL HISTORY: right lumbar back pain. Right flank pain EXAM MEASUREMENTS: Right Kidney: 12.0 x 3.9 x 5.3 cm Left Kidney: 12.7 x 4.2 x 4.6 cm Right Kidney: Appeared wnl Left Kidney: Slightly dilated renal pelvis which appears to have improved when compared to previous Bladder: Unable to visualize, pt voided just prior to exam IMPRESSION: Left side mild hydronephrosis which is decreased compared to last exam.
[2020-10-30 15:14] VITALS: BP 107/69; PULSE 98; TEMP 97.9
== END 2020-10-30 15:14 | disposition home or self-care (01) ==
LOC: EC 12:32
DX: M54.5 Low back pain (principal); N13.30 Unspecified hydronephrosis; I10 Essential (primary) hypertension; F17.200 Nicotine dependence, unspecified, uncomplicated; Z79.1 Long term (current) use of non-steroidal anti-inflammatories (NSAID)
CPT/HCPCS: 36415; 80048; 85025; 81001; 81025; 76770; 99284; 96374; J1170

== ENCOUNTER 2021-07-10 19:13 | Emergency (ER) | payer OTHER ==
[2021-07-10 19:32] VITALS: RESP 18
[2021-07-10] MEDS ORDERED: IBUPROFEN IV 800 MG in SODIUM CHLORIDE 0.9% 250 ML IV ONE (19:44)
[2021-07-10] MEDS ORDERED: ACETAMINOPHEN TAB 500 MG TAB PO STA (19:44)
[2021-07-10] MEDS ORDERED: SODIUM CHLORIDE 0.9% 1,000 ML IV ONE (19:44)
[2021-07-10 20:17] LABS: Basophils % (A) 1 %; Eosinophils # (A) 0.1 k/uL (0-0.7); Eosinophils % (A) 1 %; HCT 41.1 % (34.0-46.0); HGB 13.8 gm/dL (11.4-16.0); Lymphocytes # (A) 0.2 k/uL (1.0-4.8); Lymphocytes % (A) 5 %; MCH 31.6 pg (25.0-35.0); MCHC 33.6 g/dL (31.0-37.0); MCV 94.1 fL (80.0-100.0); Mean Platelet Volume 9.4; Monocytes # (A) 0.6 k/uL (0-1.0); Monocytes % (A) 12 %; Neutrophils # (A) 3.7 k/uL (1.3-7.7); Neutrophils % (A) 80 %; Platelet Count 123 k/uL (150-450); RBC 4.37 m/uL (3.80-5.40); WBC 4.6 k/uL (3.8-10.6)
[2021-07-10 20:26] LABS: Appearance,Urine Clear (Clear); Bacteria,Urine Rare /hpf; Bilirubin,Urine Negative (Negative); Blood,Urine Small (Negative); Color,Urine Yellow; Glucose,Urine (UA) Negative (Negative); Ketones,Urine Negative (Negative); Leukocyte Esterase,Urine Trace (Negative); Mucus,Urine Many /hpf; Nitrite,Urine Negative (Negative); PH, Urine 6.5 (5.0-8.0); Protein,Urine Trace (Negative); RBC,Urine 30 /hpf (0-5); Specific Gravity,Urine 1.034 (1.001-1.035); Squamous Epithelial Cell,Urine 2 /hpf (0-4); Urobilinogen,Urine <2.0 mg/dL (<2.0); WBC,Urine 9 /hpf (0-5)
[2021-07-10 20:48] LABS: ALT 16 U/L (4-34); AST 19 U/L (14-36); African American GFR (CKD) >90 (>60 ml/min/1.73 sqM); Albumin 4.9 g/dL (3.5-5.0); Alkaline Phosphatase 90 U/L (38-126); Anion Gap 11 mmol/L; Blood Urea Nitrogen 12 mg/dL (7-17); Calcium 9.8 mg/dL (8.4-10.2); Carbon Dioxide 22 mmol/L (22-30); Chloride 104 mmol/L (98-107); Glucose 92 mg/dL (74-99); Non-African American GFR(CKD) >90 (>60 ml/min/1.73 sqM); Potassium 3.6 mmol/L (3.5-5.1); Sodium 137 mmol/L (137-145); Total Bilirubin 0.4 mg/dL (0.2-1.3); Total Protein 8.1 g/dL (6.3-8.2)
--- NOTE | 2021-07-10 20:53 | ED ---
General Adult HPI - General Chief complaint: Fever Stated complaint: Fever/headache Time Seen by Provider: 07/10/21 19:34 Source: patient Mode of arrival: wheelchair Limitations: no limitations - History of Present Illness Initial comments: 25 year-old female patient presents to the emergency department for evaluation of headache, back pain, and nausea. States that symptoms started yesterday and worsened today. States she did have fever earlier. Took a norco then additional tylenol without relief of symptoms. Denies any vomiting or diarrhea. Denies any dysuria, hematuria, urinary frequency, or urgency. Denies sick contacts. She did not have COVID vaccines. She denies any sore throat, cough, or congestion. Denies chance of . Denies any known injury. - Related Data Home Medications Medication Instructions Recorded Confirmed Ibuprofen [Motrin] 800 mg PO Q8H PRN 08/20/20 08/20/20 Ondansetron [Zofran ODT] 4 mg PO Q4H PRN 08/20/20 08/20/20 Sulfamethox-Tmp 800-160Mg [Bactrim 1 tab PO Q12HR 08/20/20 08/20/20 DS 800-160 mg] Previous Rx's Medication Instructions Recorded HYDROcodone/APAP 5-325MG [[place] 1 tab PO Q6HR PRN 3 Days #12 tab 07/17/20 5-325] Ketorolac [Toradol] 10 mg PO Q8HR #10 tab 08/20/20 Ondansetron Odt [Zofran Odt] 4 mg PO Q8HR PRN #10 tab 08/20/20 Acetaminophen [Tylenol] 100 mg PO Q6H PRN #20 tab 07/10/21 Ascorbic Acid [Vitamin C] 1,000 mg PO DAILY #14 tablet 07/10/21 Cholecalciferol [Vitamin D3 (25 25 mcg PO DAILY #14 tab 07/10/21 Mcg = 1000 Iu)] Ibuprofen [Motrin] 600 mg PO Q8HR PRN #30 tab 07/10/21 Ondansetron [Zofran ODT] 4 mg PO Q8HR PRN #20 tab 07/10/21 Zinc Sulfate [Orazinc] 220 mg PO DAILY #14 capsule 07/10/21 Allergies Allergy/AdvReac Type Severity Reaction Status Date / Time No Known Allergies Allergy Verified 07/10/21 19:29 Review of Systems ROS Statement: Those systems with pertinent positive or pertinent negative responses have been documented in the HPI. ROS Other: All systems not noted in ROS Statement are negative. Past Medical History Past Medical History: Hypertension Additional Past Medical History / Comment(s): Patient has had 4 spontaneous vaginal deliveries ranging from 8 lbs. 9 oz.-9 lbs. 6 oz. History of HTN - states she took antihypertensives 3 years ago and just stopped taking them. History of Any Multi-Drug Resistant Organisms: MRSA Date of last positivie culture/infection: 08/10/20 MDRO Source:: MRSA URINE Past Surgical History: Tubal Ligation Past Anesthesia/Blood Transfusion Reactions: No Reported Reaction Additional Past Anesthesia/Blood Transfusion Reaction / Comment(s): n o hx. Past Psychological History: No Psychological Hx Reported Smoking Status: Current every day smoker Past Alcohol Use History: None Reported Past Drug Use History: None Reported - Past Family History Brother(s) Additional Family Medical History / Comment(s): Hemophilia Father Family Medical History: No Reported History General Exam Limitations: no limitations General appearance: alert, in no apparent distress, other (This is a well- developed, well-nourished adult female in no acute distress.) ENT exam: Present: normal exam, normal oropharynx, mucous membranes moist Respiratory exam: Present: normal lung sounds bilaterally. Absent: respiratory distress, wheezes, rales, rhonchi, stridor Cardiovascular Exam: Present: normal rhythm, tachycardia, normal heart sounds. Absent: systolic murmur, diastolic murmur, rubs, gallop, clicks GI/Abdominal exam: Present: soft, normal bowel sounds. Absent: distended, tenderness, guarding, rebound, rigid Back exam: Present: normal inspection, tenderness (Generalized) Neurological exam: Present: alert, oriented X3, CN II-XII intact Psychiatric exam: Present: normal affect, normal mood Skin exam: Present: warm, dry, intact, normal color. Absent: rash Course Vital Signs 07/10/21 07/10/21 19:29 20:58 Temperature 102.5 F H 100.7 F H Pulse Rate 108 H 92 Respiratory 18 18 Rate Blood Pressure 124/76 132/76 O2 Sat by Pulse 99 99 Oximetry Medical Decision Making - Medical Decision Making 25-year-old female patient presented to the emergency department today for evaluation of back pain, headache, nausea. She also was febrile here at 102.5F . Labs reviewed and revealed normal white blood cell count. She did test positive for COVID-19. Upon reevaluation she is resting comfortably states she still has a lot of head pressure. She is neurologically intact with no focal deficits. She'll be discharged follow-up with her primary care physician for recheck in 1-2 days. She is given several prescriptions to help with symptom relief. She is educated regarding management of fever. Return parameters were discussed in detail. She verbalizes understanding and agrees with this plan. My attending is Dr. Hernandez. - Lab Data Result diagrams: 07/10/21 19:56 07/10/21 19:56 Lab Results 07/10/21 07/10/21 07/10/21 Range/Units 19:56 19:56 19:56 WBC 4.6 (3.8-10.6) k/uL RBC 4.37 (3.80-5.40) m/uL Hgb 13.8 (11.4-16.0) gm/dL Hct 41.1 (34.0-46.0) % MCV 94.1 (80.0-100.0) fL MCH 31.6 (25.0-35.0) pg MCHC 33.6 (31.0-37.0) g/dL RDW 13.0 (11.5-15.5) % Plt Count 123 L (150-450) k/uL MPV 9.4 Neutrophils % 80 % Lymphocytes % 5 % Monocytes % 12 % Eosinophils % 1 % Basophils % 1 % Neutrophils # 3.7 (1.3-7.7) k/uL Lymphocytes # 0.2 L (1.0-4.8) k/uL Monocytes # 0.6 (0-1.0) k/uL Eosinophils # 0.1 (0-0.7) k/uL Basophils # 0.0 (0-0.2) k/uL Sodium 137 (137-145) mmol/L Potassium 3.6 (3.5-5.1) mmol/L Chloride 104 (98-107) mmol/L Carbon Dioxide 22 (22-30) mmol/L Anion Gap 11 mmol/L BUN 12 (7-17) mg/dL Creatinine 0.83 (0.52-1.04) mg/dL Est GFR (CKD-EPI)AfAm >90 (>60 ml/min/1.73 sqM) Est GFR (CKD-EPI)NonAf >90 (>60 ml/min/1.73 sqM) Glucose 92 (74-99) mg/dL Plasma Lactic Acid Bob (0.7-2.0) mmol/L Calcium 9.8 (8.4-10.2) mg/dL Total Bilirubin 0.4 (0.2-1.3) mg/dL AST 19 (14-36) U/L ALT 16 (4-34) U/L Alkaline Phosphatase 90 (38-126) U/L Total Protein 8.1 (6.3-8.2) g/dL Albumin 4.9 (3.5-5.0) g/dL Urine Color Yellow Urine Appearance Clear (Clear) Urine pH 6.5 (5.0-8.0) Ur Specific [place] 1.034 (1.001-1.035) Urine Protein Trace H (Negative) Urine Glucose (UA) Negative (Negative) Urine Ketones Negative (Negative) Urine Blood Small H (Negative) Urine Nitrite Negative (Negative) Urine Bilirubin Negative (Negative) Urine Urobilinogen <2.0 (<2.0) mg/dL Ur Leukocyte Esterase Trace H (Negative) Urine RBC 30 H (0-5) /hpf Urine WBC 9 H (0-5) /hpf Ur Squamous Epith Cells 2 (0-4) /hpf Urine Bacteria Rare H (None) /hpf Urine Mucus Many H (None) /hpf Urine HCG, Qual (Not Detectd) Coronavirus (PCR) (Not Detectd) 07/10/21 07/10/21 07/10/21 Range/Units 19:56 19:56 19:56 WBC (3.8-10.6) k/uL RBC (3.80-5.40) m/uL Hgb (11.4-16.0) gm/dL Hct (34.0-46.0) % MCV (80.0-100.0) fL MCH (25.0-35.0) pg MCHC (31.0-37.0) g/dL RDW (11.5-15.5) % Plt Count (150-450) k/uL MPV Neutrophils % % Lymphocytes % % Monocytes % % Eosinophils % % Basophils % % Neutrophils # (1.3-7.7) k/uL Lymphocytes # (1.0-4.8) k/uL Monocytes # (0-1.0) k/uL Eosinophils # (0-0.7) k/uL Basophils # (0-0.2) k/uL Sodium (137-145) mmol/L Potassium (3.5-5.1) mmol/L Chloride (98-107) mmol/L Carbon Dioxide (22-30) mmol/L Anion Gap mmol/L BUN (7-17) mg/dL Creatinine (0.52-1.04) mg/dL Est GFR (CKD-EPI)AfAm (>60 ml/min/1.73 sqM) Est GFR (CKD-EPI)NonAf (>60 ml/min/1.73 sqM) Glucose (74-99) mg/dL Plasma Lactic Acid Bob 0.9 (0.7-2.0) mmol/L Calcium (8.4-10.2) mg/dL Total Bilirubin (0.2-1.3) mg/dL AST (14-36) U/L ALT (4-34) U/L Alkaline Phosphatase (38-126) U/L Total Protein (6.3-8.2) g/dL Albumin (3.5-5.0) g/dL Urine Color Urine Appearance (Clear) Urine pH (5.0-8.0) Ur Specific [place] (1.001-1.035) Urine Protein (Negative) Urine Glucose (UA) (Negative) Urine Ketones (Negative) Urine Blood (Negative) Urine Nitrite (Negative) Urine Bilirubin (Negative) Urine Urobilinogen (<2.0) mg/dL Ur Leukocyte Esterase (Negative) Urine RBC (0-5) /hpf Urine WBC (0-5) /hpf Ur Squamous Epith Cells (0-4) /hpf Urine Bacteria (None) /hpf Urine Mucus (None) /hpf Urine HCG, Qual Not Detected (Not Detectd) Coronavirus (PCR) Detected A (Not Detectd) Disposition Clinical Impression: COVID-19 Disposition: HOME SELF-CARE Condition: Good Instructions (If sedation given, give patient instructions): Coronavirus Disease 2019 (COVID-19), Fever in Adults (ED) Additional Instructions: Tips to help you feel better: -Maintain adequate fluid intake - especially water. -Rest, you are healing your body will require extra sleep. -Eat even if you do not feel like it - broth, jello, toast are fine if you cannot eat full meals. -Take tylenol and motrin alternating (if you have no allergies or have not been instructed to avoid these medications) to help with body aches and fevers. -Obtain over the counter vitamin C, zinc, and vitamin D3. -Take medications as prescribed. Follow-up with your primary care physician for recheck in 1-2 days. Return for any new, worsening, or concerning symptoms. Prescriptions: Ibuprofen [Motrin] 600 mg PO Q8HR PRN #30 tab PRN Reason: Pain Zinc Sulfate [Orazinc] 220 mg PO DAILY #14 capsule Acetaminophen [Tylenol] 100 mg PO Q6H PRN #20 tab PRN Reason: fever/pain Ascorbic Acid [Vitamin C] 1,000 mg PO DAILY #14 tablet Cholecalciferol [Vitamin D3 (25 Mcg = 1000 Iu)] 25 mcg PO DAILY #14 tab Ondansetron [Zofran ODT] 4 mg PO Q8HR PRN #20 tab PRN Reason: Nausea Is patient prescribed a controlled substance at d/c from ED?: No Referrals: None,Stated [Primary Care Provider] - 1-2 days Time of Disposition: 20:53
[2021-07-10] MEDS ORDERED: ONDANSETRON 4 MG/2 ML VIAL IVP STA (20:55)
[2021-07-10 20:59] VITALS: BP 132/76; PULSE 92; TEMP 100.7
== END 2021-07-10 21:13 | disposition home or self-care (01) ==
LOC: EC 19:13
DX: U07.1 COVID-19 (principal); I10 Essential (primary) hypertension; F17.200 Nicotine dependence, unspecified, uncomplicated; Z98.51 Tubal ligation status
CPT/HCPCS: 99284; 96365; 96375; 36415; 80053; 83605; 85025; 81001; 81025; 87635; J2405; J1741

== ENCOUNTER → 2021-10-10 | Outpatient (CLI) | payer OTHER | END | disposition home or self-care (01) | LOC: LABWHC1 14:12 | PROVIDERS: ATTEND Nurse Practitioner | DX: Z11.59 Encounter for screening for other viral diseases (principal) | CPT/HCPCS: 36415; 87522 ==

== ENCOUNTER 2022-03-17 12:14 | Emergency (ER) | payer OTHER ==
[2022-03-17 12:33] VITALS: TEMP 98.2
[2022-03-17] MEDS ORDERED: KETOROLAC 15 MG/ML 1 ML VIAL IVP STA (13:09)
[2022-03-17] MEDS ORDERED: PANTOPRAZOLE 40 MG/10 ML VIAL IVP STA (13:09)
[2022-03-17] MEDS ORDERED: SODIUM CHLORIDE 0.9% 1,000 ML IV STA (13:09)
--- NOTE | 2022-03-17 13:15 | ED ---
Abdominal Pain HPI - General Chief Complaint: Abdominal Pain Stated Complaint: lower right abd pain Time Seen by Provider: 03/17/22 13:07 Source: patient, RN notes reviewed, old records reviewed Mode of arrival: ambulatory - History of Present Illness Initial Comments: 18-year-old female presents with right lower quadrant abdominal pain started last night. Increasingly more painful and hurts with movement. She states that she did just start her period. Denies any fevers, no nausea vomiting or diarrhea. She does have a history of tubal ligation and Hypertension. She is a cigarette smoker, 10 cigarettes a day. Denies any alcohol or drug use. No previous abdominal surgeries. MD Complaint: abdominal pain -: days(s) (1) Radiation: RLQ Severity scale (1-10): 6 Quality: sharp Consistency: constant Improves With: nothing Worsens With: movement Associated Symptoms: denies other symptoms - Related Data Home Medications Medication Instructions Recorded Confirmed No Known Home Medications 03/17/22 03/17/22 Allergies Allergy/AdvReac Type Severity Reaction Status Date / Time No Known Allergies Allergy Verified 03/17/22 14:31 Review of Systems ROS Statement: Those systems with pertinent positive or pertinent negative responses have been documented in the HPI. ROS Other: All systems not noted in ROS Statement are negative. Past Medical History Past Medical History: Hypertension Additional Past Medical History / Comment(s): Patient has had 4 spontaneous vaginal deliveries ranging from 8 lbs. 9 oz.-9 lbs. 6 oz. History of HTN - sta marcello she took antihypertensives 3 years ago and just stopped taking them. History of Any Multi-Drug Resistant Organisms: MRSA Date of last positivie culture/infection: 08/10/20 MDRO Source:: MRSA URINE Past Surgical History: Tubal Ligation Past Anesthesia/Blood Transfusion Reactions: No Reported Reaction Additional Past Anesthesia/Blood Transfusion Reaction / Comment(s): n o hx. Past Psychological History: No Psychological Hx Reported Smoking Status: Current every day smoker Past Alcohol Use History: None Reported Past Drug Use History: None Reported - Past Family History Brother(s) Additional Family Medical History / Comment(s): Hemophilia Father Family Medical History: No Reported History General Exam Limitations: no limitations General appearance: alert, in no apparent distress Head exam: Present: atraumatic Eye exam: Present: normal appearance. Absent: scleral icterus, conjunctival injection, periorbital swelling, periorbital tenderness Neck exam: Present: full ROM. Absent: meningismus Respiratory exam: Present: normal lung sounds bilaterally. Absent: respiratory distress, wheezes, rales, rhonchi, stridor, chest wall tenderness, accessory muscle use Cardiovascular Exam: Present: regular rate GI/Abdominal exam: Present: soft, tenderness (Right lower quadrant), guarding. Absent: rigid Extremities exam: Present: full ROM, normal capillary refill. Absent: tenderness, pedal edema, calf tenderness Back exam: Present: normal inspection, full ROM. Absent: tenderness, CVA te nderness (R), CVA tenderness (L), rash noted Neurological exam: Present: alert, oriented X3 Psychiatric exam: Present: normal affect, normal mood Skin exam: Present: warm, dry, normal color. Absent: cyanosis, diaphoretic, pe techiae, pallor Course Vital Signs 03/17/22 03/17/22 03/17/22 12:30 13:32 16:10 Temperature 98.2 F Pulse Rate 85 76 67 Respiratory 16 18 18 Rate Blood Pressure 127/75 131/86 123/78 O2 Sat by Pulse 99 96 98 Oximetry Medical Decision Making - Medical Decision Making CT shows persistent tiny bilateral renal calculi all measuring under 3 mm in size. No hydronephrosis or obstructing ureteral calculi seen. There is a 3.3 x 2.2 cm thin-walled cysts to the right ovary. This is more consistent with the patient's pain is. Appendix is difficult to visualize with certainty but likely normal in size. Labs show no evidence of leukocytosis with joints unremarkable. Urinalysis shows no evidence of infection or blood. test is negative. Patient's pain is likely brought on by right ovarian cyst. She was instructed to take Motrin and use warm compresses. Follow-up with her ENGINEERING OPERATIONS LEADER or primary care doctor. She was directed to return to the emergency room with any new or concerning symptoms including increased pain, fevers or persistent nausea vomiting. Vital signs are stable. Case discussed with Dr. Wall - Lab Data Result diagrams: 03/17/22 13:14 03/17/22 13:14 Lab Results 03/17/22 03/17/22 03/17/22 Range/Units 13:00 13:14 13:14 WBC 5.4 (3.8-10.6) k/uL RBC 4.32 (3.80-5.40) m/uL Hgb 13.3 (11.4-16.0) gm/dL Hct 40.4 (34.0-46.0) % MCV 93.5 (80.0-100.0) fL MCH 30.8 (25.0-35.0) pg MCHC 32.9 (31.0-37.0) g/dL RDW 12.2 (11.5-15.5) % Plt Count 166 (150-450) k/uL MPV 8.9 Neutrophils % 61 % Lymphocytes % 26 % Monocytes % 6 % Eosinophils % 4 % Basophils % 1 % Neutrophils # 3.3 (1.3-7.7) k/uL Lymphocytes # 1.4 (1.0-4.8) k/uL Monocytes # 0.3 (0-1.0) k/uL Eosinophils # 0.2 (0-0.7) k/uL Basophils # 0.0 (0-0.2) k/uL Sodium 138 (137-145) mmol/L Potassium 4.0 (3.5-5.1) mmol/L Chloride 104 (98-107) mmol/L Carbon Dioxide 23 (22-30) mmol/L Anion Gap 11 mmol/L BUN 11 (7-17) mg/dL Creatinine 0.63 (0.52-1.04) mg/dL Est GFR (CKD-EPI)AfAm >90 (>60 ml/min/1.73 sqM) Est GFR (CKD-EPI)NonAf >90 (>60 ml/min/1.73 sqM) Glucose 94 (74-99) mg/dL Plasma Lactic Acid Bob 0.7 (0.7-2.0) mmol/L Calcium 9.1 (8.4-10.2) mg/dL Total Bilirubin 0.8 (0.2-1.3) mg/dL AST 16 (14-36) U/L ALT 15 (4-34) U/L Alkaline Phosphatase 82 (38-126) U/L Total Protein 7.0 (6.3-8.2) g/dL Albumin 4.6 (3.5-5.0) g/dL Amylase 59 (30-110) U/L Lipase 45 (23-300) U/L Urine Color Urine Appearance (Clear) Urine pH (5.0-8.0) Ur Specific [place] (1.001-1.035) Urine Protein (Negative) Urine Glucose (UA) (Negative) Urine Ketones (Negative) Urine Blood (Negative) Urine Nitrite (Negative) Urine Bilirubin (Negative) Urine Urobilinogen (<2.0) mg/dL Ur Leukocyte Esterase (Negative) Urine RBC (0-5) /hpf Urine WBC (0-5) /hpf Ur Squamous Epith Cells (0-4) /hpf Hyaline Casts (0-2) /lpf Urine Mucus (None) /hpf Urine HCG, Qual (Not Detectd) 03/17/22 03/17/22 Range/Units 13:36 13:36 WBC (3.8-10.6) k/uL RBC (3.80-5.40) m/uL Hgb (11.4-16.0) gm/dL Hct (34.0-46.0) % MCV (80.0-100.0) fL MCH (25.0-35.0) pg MCHC (31.0-37.0) g/dL RDW (11.5-15.5) % Plt Count (150-450) k/uL MPV Neutrophils % % Lymphocytes % % Monocytes % % Eosinophils % % Basophils % % Neutrophils # (1.3-7.7) k/uL Lymphocytes # (1.0-4.8) k/uL Monocytes # (0-1.0) k/uL Eosinophils # (0-0.7) k/uL Basophils # (0-0.2) k/uL Sodium (137-145) mmol/L Potassium (3.5-5.1) mmol/L Chloride (98-107) mmol/L Carbon Dioxide (22-30) mmol/L Anion Gap mmol/L BUN (7-17) mg/dL Creatinine (0.52-1.04) mg/dL Est GFR (CKD-EPI)AfAm (>60 ml/min/1.73 sqM) Est GFR (CKD-EPI)NonAf (>60 ml/min/1.73 sqM) Glucose (74-99) mg/dL Plasma Lactic Acid Bob (0.7-2.0) mmol/L Calcium (8.4-10.2) mg/dL Total Bilirubin (0.2-1.3) mg/dL AST (14-36) U/L ALT (4-34) U/L Alkaline Phosphatase (38-126) U/L Total Protein (6.3-8.2) g/dL Albumin (3.5-5.0) g/dL Amylase (30-110) U/L Lipase (23-300) U/L Urine Color Yellow Urine Appearance Clear (Clear) Urine pH 6.5 (5.0-8.0) Ur Specific [place] 1.023 (1.001-1.035) Urine Protein Negative (Negative) Urine Glucose (UA) Negative (Negative) Urine Ketones Negative (Negative) Urine Blood Negative (Negative) Urine Nitrite Negative (Negative) Urine Bilirubin Negative (Negative) Urine Urobilinogen <2.0 (<2.0) mg/dL Ur Leukocyte Esterase Trace H (Negative) Urine RBC 3 (0-5) /hpf Urine WBC 7 H (0-5) /hpf Ur Squamous Epith Cells 1 (0-4) /hpf Hyaline Casts 1 (0-2) /lpf Urine Mucus Moderate H (None) /hpf Urine HCG, Qual Not Detected (Not Detectd) Disposition Clinical Impression: Ovarian cyst Disposition: HOME SELF-CARE Condition: Good Instructions (If sedation given, give patient instructions): Ovarian Cyst (ED) Additional Instructions: Increase your fluid intake. Take tylenol and Motrin as needed for pain. You cn also use warm compresses. Follow-up with your ENGINEERING OPERATIONS LEADER for continuation of care. Return to the emergency room with a new concerning symptoms including increased pain or fevers. Is patient prescribed a controlled substance at d/c from ED?: No Referrals: None,Stated [Primary Care Provider] - 1-2 days Time of Disposition: 15:53
[2022-03-17] MEDS ORDERED: HYDROmorphone 0.5 MG/0.5 ML SYRINGE IVP STA (13:17)
[2022-03-17 13:23] LABS: Basophils % (A) 1 %; Eosinophils # (A) 0.2 k/uL (0-0.7); Eosinophils % (A) 4 %; HCT 40.4 % (34.0-46.0); HGB 13.3 gm/dL (11.4-16.0); Lymphocytes # (A) 1.4 k/uL (1.0-4.8); Lymphocytes % (A) 26 %; MCH 30.8 pg (25.0-35.0); MCHC 32.9 g/dL (31.0-37.0); MCV 93.5 fL (80.0-100.0); Mean Platelet Volume 8.9; Monocytes # (A) 0.3 k/uL (0-1.0); Monocytes % (A) 6 %; Neutrophils # (A) 3.3 k/uL (1.3-7.7); Neutrophils % (A) 61 %; Platelet Count 166 k/uL (150-450); RBC 4.32 m/uL (3.80-5.40); RDW 12.2 % (11.5-15.5); WBC 5.4 k/uL (3.8-10.6)
[2022-03-17 13:33] VITALS: RESP 18
[2022-03-17 13:34] LABS: ALT 15 U/L (4-34); AST 16 U/L (14-36); African American GFR (CKD) >90 (>60 ml/min/1.73 sqM); Albumin 4.6 g/dL (3.5-5.0); Alkaline Phosphatase 82 U/L (38-126); Amylase 59 U/L (30-110); Anion Gap 11 mmol/L; Blood Urea Nitrogen 11 mg/dL (7-17); Calcium 9.1 mg/dL (8.4-10.2); Carbon Dioxide 23 mmol/L (22-30); Chloride 104 mmol/L (98-107); Glucose 94 mg/dL (74-99); Lipase 45 U/L (23-300); Non-African American GFR(CKD) >90 (>60 ml/min/1.73 sqM); Sodium 138 mmol/L (137-145); Total Bilirubin 0.8 mg/dL (0.2-1.3)
[2022-03-17 13:53] LABS: Appearance,Urine Clear (Clear); Bilirubin,Urine Negative (Negative); Blood,Urine Negative (Negative); Color,Urine Yellow; Glucose,Urine (UA) Negative (Negative); Hyaline Casts,Urine 1 /lpf (0-2); Ketones,Urine Negative (Negative); Leukocyte Esterase,Urine Trace (Negative); Mucus,Urine Moderate /hpf; Nitrite,Urine Negative (Negative); PH, Urine 6.5 (5.0-8.0); Protein,Urine Negative (Negative); RBC,Urine 3 /hpf (0-5); Specific Gravity,Urine 1.023 (1.001-1.035); Squamous Epithelial Cell,Urine 1 /hpf (0-4); Urobilinogen,Urine <2.0 mg/dL (<2.0); WBC,Urine 7 /hpf (0-5)
--- NOTE | 2022-03-17 15:27 | CT ---
EXAMINATION TYPE: CT abdomen pelvis w con DATE OF EXAM: 03/17/2022 HISTORY: RLQ pain CT DLP: 706.4mGycm Automated Exposure Control for Dose Reduction was Utilized. CONTRAST: CT scan of the abdomen and pelvis is performed without oral but with IV Contrast, patient injected wi th 100 mL of Isovue 300. COMPARISON: CT abdomen and pelvis August 20, 2020 and older CTs FINDINGS: LUNG BASES: No significant abnormality is appreciated. LIVER/GB: Cholecystectomy clips are redemonstrated. Hepatomegaly again seen. No new biliary dilatatio n noted. PANCREAS: No significant abnormality is seen. SPLEEN: No significant abnormality is seen. ADRENALS: No significant abnormality is seen. KIDNEYS: A few punctate bilateral renal calculi are identified there is symmetric corticomedullary up take and excretion current study without hydronephrosis clearly seen bilaterally. BOWEL: Low lying cecum into the pelvis coronal image 38. Suboptimal evaluation without enteric contra st. Appendix difficult to visualize with certainty but likely normal in size coronal image 54. No inf lammatory change of base of cecum clearly seen. No suspicious small or large bowel dilatation. UTERUS/ADNEXA: Retroverted uterus on current study. There is 3.3 x 2.2 cm thin-walled cyst or cystic lesion in the right ovary on current study perhaps slightly larger from prior exam. Tubular shaped ga s filled structure in the vagina is consistent with tampon use. Adjacent pelvic phleboliths redemonst rated. LYMPH NODES: No greater than 1cm abdominal or pelvic lymph nodes are appreciated. OSSEOUS STRUCTURES: No significant abnormality is seen. OTHER: No significant additional abnormality is seen. IMPRESSION: Persistent tiny bilateral renal calculi all measuring under 3 mm in size. No hydronephros is or obstructing ureteral calculi clearly seen. Overall nonobstructive bowel gas pattern. No acute f indings clearly identified.
[2022-03-17] MEDS ORDERED: HYDROcodone/APAP 5-325MG 1 EACH TAB PO STA (15:44)
[2022-03-17 16:13] VITALS: BP 123/78; PULSE 67
== END 2022-03-17 16:16 | disposition home or self-care (01) ==
LOC: EC 12:14
DX: N83.201 Unspecified ovarian cyst, right side (principal); N20.0 Calculus of kidney; I10 Essential (primary) hypertension; F17.200 Nicotine dependence, unspecified, uncomplicated
CPT/HCPCS: 36415; 80053; 82150; 83605; 83690; 85025; 81001; 81025; 74177; 99284; 96374; 96375; 96361; J1885; C9113; J1170; Q9967

== ENCOUNTER 2022-10-30 13:57 | Emergency (ER) | payer OTHER ==
[2022-10-30] MEDS ORDERED: SODIUM CHLORIDE 0.9% 1,000 ML IV ONE (14:38)
[2022-10-30] MEDS ORDERED: KETOROLAC 15 MG/ML 1 ML VIAL IVP STA (14:38)
[2022-10-30 15:18] LABS: Appearance,Urine Cloudy (Clear); Bilirubin,Urine Negative (Negative); Blood,Urine Negative (Negative); Color,Urine Yellow; Glucose,Urine (UA) Negative (Negative); Ketones,Urine Negative (Negative); Leukocyte Esterase,Urine Trace (Negative); Mucus,Urine Rare /hpf; Nitrite,Urine Negative (Negative); Protein,Urine Negative (Negative); RBC,Urine 1 /hpf (0-5); Specific Gravity,Urine 1.019 (1.001-1.035); Squamous Epithelial Cell,Urine 8 /hpf (0-4); Urobilinogen,Urine <2.0 mg/dL (<2.0); WBC,Urine 9 /hpf (0-5)
[2022-10-30 15:33] LABS: Basophils % (A) 0 %; Eosinophils # (A) 0.1 k/uL (0-0.7); Eosinophils % (A) 1 %; HCT 38.9 % (34.0-46.0); HGB 13.1 gm/dL (11.4-16.0); Lymphocytes # (A) 1.3 k/uL (1.0-4.8); Lymphocytes % (A) 28 %; MCH 31.6 pg (25.0-35.0); MCHC 33.7 g/dL (31.0-37.0); Monocytes # (A) 0.3 k/uL (0-1.0); Monocytes % (A) 6 %; Neutrophils # (A) 3.1 k/uL (1.3-7.7); Neutrophils % (A) 63 %; Platelet Count 145 k/uL (150-450); RBC 4.14 m/uL (3.80-5.40); RDW 12.1 % (11.5-15.5); WBC 4.9 k/uL (3.8-10.6)
[2022-10-30 15:45] LABS: ALT 14 U/L (4-34); AST 16 U/L (14-36); African American GFR (CKD) >90 (>60 ml/min/1.73 sqM); Albumin 4.3 g/dL (3.5-5.0); Alkaline Phosphatase 59 U/L (38-126); Anion Gap 11 mmol/L; Blood Urea Nitrogen 11 mg/dL (7-17); Carbon Dioxide 26 mmol/L (22-30); Chloride 103 mmol/L (98-107); Glucose 86 mg/dL (74-99); Non-African American GFR(CKD) >90 (>60 ml/min/1.73 sqM); Potassium 3.9 mmol/L (3.5-5.1); Sodium 140 mmol/L (137-145); Total Bilirubin 0.5 mg/dL (0.2-1.3); Total Protein 7.1 g/dL (6.3-8.2)
--- NOTE | 2022-10-30 16:15 | CT ---
EXAMINATION TYPE: CT abdomen pelvis wo con DATE OF EXAM: 10/30/2022 COMPARISON: 03/17/2022 HISTORY: 27-year-old female RLQ pain CT DLP: 492 mGycm. Automated exposure control for dose reduction was used. TECHNIQUE: Contiguous axial scanning of the abdomen and pelvis without IV contrast. Coronal and sagit paul reconstructions performed. FINDINGS: Heart normal size without pericardial effusion. Lungs are clear without pleural effusion. Noncontrast appearance of the liver, adrenal glands, and pancreas show no gross abnormal mobility. Cholecystectomy clips. Subtle increased density along the renal medullary pyramids. Punctate underlying calcifications are p resent measuring up to 3 mm. No hydronephrosis on either side. Spleen is borderline enlarged at 13.4 cm. No dilated small bowel, free fluid, or free air. Suspect visualization of segments of a normal-appearing appendix. Cecum is low-lying within the midli ne pelvis. Mild overall colonic stool burden. No obvious mesenteric or retroperitoneal lymphadenopathy. Numerous pelvic fluid lymph nodes. There are nondistended. Uterus retroverted. There is a 2.3 cm kelsey nant follicle or functional cyst of the left ovary and a larger 4.1 cm dominant follicle or functiona l cyst of the right ovary. Mild cul-de-sac free fluid likely physiologic. Bones: No osseous destructive process. IMPRESSION: 1. Segments of the normal-appearing appendix are noted. 2. Some increased density throughout the bilateral medullary pyramids could represent concentrated r enal salts. Medullary sponge kidney is in the differential. Punctate nonobstructive calculi are prese nt, largest on the left up to 3 mm. 3. No definite ureteral calculus or hydronephrosis is seen. 4. A cystic lesion, suspected dominant follicle or functional cyst within each ovary measuring 4.1 c m on the right and 2.3 cm on the left. Recommend follow-up pelvic ultrasound in 6-8 weeks to ensure r esolution. 5. Mild pelvic free fluid likely physiologic.
[2022-10-30 16:16] VITALS: BP 129/81; PULSE 60; RESP 18; TEMP 98.2
[2022-10-30] MEDS ORDERED: MORPHINE SULFATE 2 MG/ML SYRINGE IVP ONE (16:56)
--- NOTE | 2022-10-30 16:56 | ED ---
General Adult HPI - General Chief complaint: Abdominal Pain Stated complaint: right side pelvic pain Time Seen by Provider: 10/30/22 14:28 Source: patient, RN notes reviewed Mode of arrival: ambulatory Limitations: no limitations - History of Present Illness Initial comments: 27-year-old female with no significant past medical history presents to the emergency department with a chief complaint of abdominal pain patient reports abdominal pain 2 weeks. She has not taken anything for his symptoms. She denies any dizziness, lightheadedness, cough, sore throat, chest pain, shortness of breath, nausea, vomiting, melena, hematochezia, dysuria, hematuria. She was recently seen and evaluated for this at [facility] who did a pelvic ultrasound revealed a right ovarian cyst. She denies any vaginal bleeding, vaginal cramping, back pain. Last menstrual period was approximately 10/16/2022. - Related Data Home Medications Medication Instructions Recorded Confirmed Ibuprofen [Motrin] 600 mg PO Q6H PRN 10/30/22 10/30/22 Allergies Allergy/AdvReac Type Severity Reaction Status Date / Time No Known Allergies Allergy Verified 10/30/22 15:42 Review of Systems ROS Statement: Those systems with pertinent positive or pertinent negative responses have been documented in the HPI. ROS Other: All systems not noted in ROS Statement are negative. Past Medical History Past Medical History: Hypertension Additional Past Medical History / Comment(s): Patient has had 4 spontaneous vaginal deliveries ranging from 8 lbs. 9 oz.-9 lbs. 6 oz. History of HTN - states she took antihypertensives 3 years ago and just stopped taking them. History of Any Multi-Drug Resistant Organisms: MRSA Date of last positivie culture/infection: 08/10/20 MDRO Source:: MRSA URINE Past Surgical History: Tubal Ligation Past Anesthesia/Blood Transfusion Reactions: No Reported Reaction Additional Past Anesthesia/Blood Transfusion Reaction / Comment(s): n o hx. Past Psychological History: No Psychological Hx Reported Smoking Status: Current every day smoker Past Alcohol Use History: None Reported Past Drug Use History: None Reported - Past Family History Brother(s) Additional Family Medical History / Comment(s): Hemophilia Father Family Medical History: No Reported History General Exam - General Exam Comments Initial Comments: General: Alert, in no acute distress Head: atraumatic normocephalic. Eyes PERRL, EOMI intact, mucous membranes moist Respiratory: Lungs clear to auscultation bilaterally Cardiovascular: Heart rate regular rate and rhythm Abdominal: Soft without guarding or rebound Extremities: Normal inspection with full range of motion and normal capillary refill Neuroogic: alert and oriented 3, CN II-XII intact, able to ambulate with steady gait Skin: warm dry and intact with normal color Limitations: no limitations Course Vital Signs 10/30/22 10/30/22 14:21 16:15 Temperature 98.0 F 98.2 F Pulse Rate 74 60 Respiratory 17 18 Rate Blood Pressure 114/75 129/81 O2 Sat by Pulse 100 98 Oximetry Medical Decision Making - Medical Decision Making Was pt. sent in by a medical professional or institution (, PA, CAGE FIGHTER, urgent care, hospital, or care home...) When possible be specific @ -[No] Did you speak to anyone other than the patient for history (EMS, parent, family, police, friend...)? What history was obtained from this source @ -[No] Did you review nursing and triage notes (agree or disagree)? Why? @ -[I reviewed and agree with nursing and triage notes] Were old charts reviewed (outside hosp., previous admission, EMS record, old EKG, old radiological studies, urgent care reports/EKG's, care home records)? Report findings @ -[No old charts were reviewed] Differential Diagnosis (chest pain, altered mental status, abdominal pain women, abdominal pain men, vaginal bleeding, weakness, fever, dyspnea, syncope, headache, dizziness, GI bleed, back pain, seizure, CVA, palpatations, mental health, musculoskeletal)? @ -[not applicable] EKG interpreted by me (3pts min.). @ -[As above] X-rays interpreted by me (1pt min.). @ -[None done] CT interpreted by me (1pt min.). @ -CT redemonstrates ovarian cyst no acute intra-abdominal process U/S interpreted by me (1pt. min.). @ -[None done] What testing was considered but not performed or refused? (CT, X-rays, U/S, labs)? Why? @ -[None] What meds were considered but not given or refused? Why? @ -[None] Did you discuss the management of the patient with other professionals (professionals i.e. , PA, CAGE FIGHTER, lab, RT, psych nurse, manager social services, field rep, teacher, chief media officer, telephonic nurse case manager)? Give summary @ -[No] Was smoking cessation discussed for >3mins.? @ -[No] Was critical care preformed (if so, how long)? @ -[No] Were there social determinants of health that impacted care today? How? (Homelessness, low income, unemployed, alcoholism, drug addiction, transportation, low edu. Level, literacy, decrease access to med. care, senior living, rehab)? @ -[No] Was there de-escalation of care discussed even if they declined (Discuss DNR or withdrawal of care, Hospice)? DNR status @ -[No] What co-morbidities impacted this encounter? (DM, HTN, Smoking, COPD, CAD, Can cer, CVA, ARF, Chemo, Hep., AIDS, mental health diagnosis, sleep apnea, morbid obesity)? @ -[None] Was patient admitted / discharged? Hospital course, mention meds given and route, prescriptions, significant lab abnormalities, going to OR and other pertinent info. @ - -Discharged. This is a 27 -year-old female who presents to the emergency department with abdominal pain. Patient had a thorough history and physical exam performed while in the ED. Physical exam reveals heart rate regular rate and rhythm, lungs clear to auscultation bilaterally abdomen is soft and nontender.. Patient had lab work and imaging performed on the ED which were essentially unremarkable. I discussed the results in detail with the patient verbalized understanding and all questions were addressed. She was given Toradol, morphine, 1 L of IV fluids was symptomatically relief on the ED. He was encouraged to follow up with his PCP in 1-2 days. Return precautions were discussed at length. Patient discharged in stable condition. Case discussed with CATE Henderson who agrees with plan of care Undiagnosed new problem with uncertain prognosis? @ -[No] Drug Therapy requiring intensive monitoring for toxicity (Heparin, Nitro, Insulin, Cardizem)? @ -[No] Were any procedures done? @ -[No] Diagnosis/symptom? @ -Abdominal Pain - Ovarian cyst Acute, or Chronic, or Acute on Chronic? @ -acute Uncomplicated (without systemic symptoms) or Complicated (systemic symptoms)? @ -uncomplicated Side effects of treatment? @ -[No] Exacerbation, Progression, or Severe Exacerbation? @ -[No] Poses a threat to life or bodily function? How? (Chest pain, USA, NC, pneumonia, PE, COPD, DKA, ARF, appy, cholecystitis, CVA, Diverticulitis, Homicidal, Suicidal, threat to staff... and all critical care pts) @ low likelihood - Lab Data Result diagrams: 10/30/22 14:52 10/30/22 14:52 Lab Results 10/30/22 10/30/22 10/30/22 Range/Units 14:52 14:52 14:58 WBC 4.9 (3.8-10.6) k/uL RBC 4.14 (3.80-5.40) m/uL Hgb 13.1 (11.4-16.0) gm/dL Hct 38.9 (34.0-46.0) % MCV 94.0 (80.0-100.0) fL MCH 31.6 (25.0-35.0) pg MCHC 33.7 (31.0-37.0) g/dL RDW 12.1 (11.5-15.5) % Plt Count 145 L (150-450) k/uL MPV 9.0 Neutrophils % 63 % Lymphocytes % 28 % Monocytes % 6 % Eosinophils % 1 % Basophils % 0 % Neutrophils # 3.1 (1.3-7.7) k/uL Lymphocytes # 1.3 (1.0-4.8) k/uL Monocytes # 0.3 (0-1.0) k/uL Eosinophils # 0.1 (0-0.7) k/uL Basophils # 0.0 (0-0.2) k/uL Sodium 140 (137-145) mmol/L Potassium 3.9 (3.5-5.1) mmol/L Chloride 103 (98-107) mmol/L Carbon Dioxide 26 (22-30) mmol/L Anion Gap 11 mmol/L BUN 11 (7-17) mg/dL Creatinine 0.68 (0.52-1.04) mg/dL Est GFR (CKD-EPI)AfAm >90 (>60 ml/min/1.73 sqM) Est GFR (CKD-EPI)NonAf >90 (>60 ml/min/1.73 sqM) Glucose 86 (74-99) mg/dL Calcium 9.0 (8.4-10.2) mg/dL Total Bilirubin 0.5 (0.2-1.3) mg/dL AST 16 (14-36) U/L ALT 14 (4-34) U/L Alkaline Phosphatase 59 (38-126) U/L Total Protein 7.1 (6.3-8.2) g/dL Albumin 4.3 (3.5-5.0) g/dL Urine Color Yellow Urine Appearance Cloudy H (Clear) Urine pH 7.0 (5.0-8.0) Ur Specific [place] 1.019 (1.001-1.035) Urine Protein Negative (Negative) Urine Glucose (UA) Negative (Negative) Urine Ketones Negative (Negative) Urine Blood Negative (Negative) Urine Nitrite Negative (Negative) Urine Bilirubin Negative (Negative) Urine Urobilinogen <2.0 (<2.0) mg/dL Ur Leukocyte Esterase Trace H (Negative) Urine RBC 1 (0-5) /hpf Urine WBC 9 H (0-5) /hpf Ur Squamous Epith Cells 8 H (0-4) /hpf Urine Mucus Rare H (None) /hpf Urine HCG, Qual (Not Detectd) 10/30/22 Range/Units 15:00 WBC (3.8-10.6) k/uL RBC (3.80-5.40) m/uL Hgb (11.4-16.0) gm/dL Hct (34.0-46.0) % MCV (80.0-100.0) fL MCH (25.0-35.0) pg MCHC (31.0-37.0) g/dL RDW (11.5-15.5) % Plt Count (150-450) k/uL MPV Neutrophils % % Lymphocytes % % Monocytes % % Eosinophils % % Basophils % % Neutrophils # (1.3-7.7) k/uL Lymphocytes # (1.0-4.8) k/uL Monocytes # (0-1.0) k/uL Eosinophils # (0-0.7) k/uL Basophils # (0-0.2) k/uL Sodium (137-145) mmol/L Potassium (3.5-5.1) mmol/L Chloride (98-107) mmol/L Carbon Dioxide (22-30) mmol/L Anion Gap mmol/L BUN (7-17) mg/dL Creatinine (0.52-1.04) mg/dL Est GFR (CKD-EPI)AfAm (>60 ml/min/1.73 sqM) Est GFR (CKD-EPI)NonAf (>60 ml/min/1.73 sqM) Glucose (74-99) mg/dL Calcium (8.4-10.2) mg/dL Total Bilirubin (0.2-1.3) mg/dL AST (14-36) U/L ALT (4-34) U/L Alkaline Phosphatase (38-126) U/L Total Protein (6.3-8.2) g/dL Albumin (3.5-5.0) g/dL Urine Color Urine Appearance (Clear) Urine pH (5.0-8.0) Ur Specific [place] (1.001-1.035) Urine Protein (Negative) Urine Glucose (UA) (Negative) Urine Ketones (Negative) Urine Blood (Negative) Urine Nitrite (Negative) Urine Bilirubin (Negative) Urine Urobilinogen (<2.0) mg/dL Ur Leukocyte Esterase (Negative) Urine RBC (0-5) /hpf Urine WBC (0-5) /hpf Ur Squamous Epith Cells (0-4) /hpf Urine Mucus (None) /hpf Urine HCG, Qual Not Detected (Not Detectd) Disposition Clinical Impression: Abdominal pain Disposition: HOME SELF-CARE Condition: Stable Instructions (If sedation given, give patient instructions): Abdominal Pain (ED) Additional Instructions: Please return to the nearest emergency department symptoms worsen or persist Is patient prescribed a controlled substance at d/c from ED?: No Referrals: Anjel El MD [Primary Care Provider] - 1-2 days Rahel Lambert DO [Doctor of Osteopathic Medicine] - 1-2 days Reina Collins MD [STAFF PHYSICIAN] - 1-2 days Time of Disposition: 16:55
== END 2022-10-30 17:23 | disposition home or self-care (01) ==
LOC: EC 13:57
DX: N83.202 Unspecified ovarian cyst, left side (principal); I10 Essential (primary) hypertension; F17.200 Nicotine dependence, unspecified, uncomplicated
CPT/HCPCS: 36415; 80053; 85025; 81001; 81025; 74176; 99284; 96374; 96375; 96361; J2270; J1885

== ENCOUNTER 2023-06-04 10:49 | Emergency (ER) | payer OTHER ==
[2023-06-04 11:05] VITALS: RESP 18; TEMP 98
[2023-06-04] MEDS ORDERED: SODIUM CHLORIDE 0.9% 1,000 ML IV STA ×2 (11:53→13:43)
[2023-06-04] MEDS ORDERED: KETOROLAC 15 MG/ML 1 ML VIAL IVP STA ×3 (11:53→15:36)
[2023-06-04] MEDS ORDERED: MORPHINE SULFATE 4 MG/ML SYRINGE IVP STA (11:53)
[2023-06-04 11:54] LABS: Appearance,Urine Cloudy (Clear); Bilirubin,Urine Negative (Negative); Blood,Urine Small (Negative); Color,Urine Yellow; Glucose,Urine (UA) Negative (Negative); Ketones,Urine Negative (Negative); Leukocyte Esterase,Urine Trace (Negative); Mucus,Urine Few /hpf; Nitrite,Urine Negative (Negative); PH, Urine 7.5 (5.0-8.0); Protein,Urine Trace (Negative); RBC,Urine 4 /hpf (0-5); Specific Gravity,Urine 1.027 (1.001-1.035); Squamous Epithelial Cell,Urine 10 /hpf (0-4); Urobilinogen,Urine <2.0 mg/dL (<2.0); WBC,Urine 9 /hpf (0-5)
[2023-06-04 12:23] LABS: Basophils % (A) 0 %; Eosinophils # (A) 0.1 k/uL (0-0.7); Eosinophils % (A) 1 %; HCT 38.2 % (34.0-46.0); HGB 12.9 gm/dL (11.4-16.0); Lymphocytes # (A) 1.7 k/uL (1.0-4.8); Lymphocytes % (A) 30 %; MCH 31.7 pg (25.0-35.0); MCHC 33.8 g/dL (31.0-37.0); MCV 93.9 fL (80.0-100.0); Mean Platelet Volume 8.9; Monocytes # (A) 0.4 k/uL (0-1.0); Monocytes % (A) 7 %; Neutrophils # (A) 3.4 k/uL (1.3-7.7); Neutrophils % (A) 60 %; Platelet Count 163 k/uL (150-450); RBC 4.07 m/uL (3.80-5.40); RDW 12.7 % (11.5-15.5); WBC 5.6 k/uL (3.8-10.6)
--- NOTE | 2023-06-04 12:39 | ED ---
Abdominal Pain HPI - General Chief Complaint: Abdominal Pain Stated Complaint: abd pains Time Seen by Provider: 06/04/23 11:46 Source: patient, RN notes reviewed Mode of arrival: ambulatory Limitations: no limitations - History of Present Illness Initial Comments: This is a 27-year-old female who presents to the emergency department for left flank pain and lower abdominal pain. Symptoms began yesterday. Also reports blood in her urine. Denies any nausea or vomiting. She has a history of kidney stones 3 years ago, but states that the pain is lower down in her back and abdomen. Denies any fevers/chills or changes in bowel habits. MD Complaint: abdominal pain, flank pain - Related Data Home Medications Medication Instructions Recorded Confirmed Ibuprofen [Motrin] 600 mg PO Q6H PRN 10/30/22 10/30/22 Previous Rx's Medication Instructions Recorded HYDROcodone/APAP 7.5-325MG [Waterflow 1 tab PO Q6HR PRN 3 Days #12 tab 06/04/23 7.5-325] Ketorolac [Toradol] 10 mg PO Q6HR PRN #15 tab 06/04/23 Allergies Allergy/AdvReac Type Severity Reaction Status Date / Time No Known Allergies Allergy Verified 06/04/23 11:04 Review of Systems ROS Statement: Those systems with pertinent positive or pertinent negative responses have been documented in the HPI. ROS Other: All systems not noted in ROS Statement are negative. Past Medical History Past Medical History: Hypertension Additional Past Medical History / Comment(s): Patient has had 4 spontaneous vaginal deliveries ranging from 8 lbs. 9 oz.-9 lbs. 6 oz. History of HTN - states she took antihypertensives 3 years ago and just stopped taking them. History of Any Multi-Drug Resistant Organisms: MRSA Date of last positivie culture/infection: 08/10/20 MDRO Source:: MRSA URINE Past Surgical History: Tubal Ligation Past Anesthesia/Blood Transfusion Reactions: No Reported Reaction Additional Past Anesthesia/Blood Transfusion Reaction / Comment(s): n o hx. Past Psychological History: No Psychological Hx Reported Smoking Status: Current every day smoker Past Alcohol Use History: None Reported Past Drug Use History: None Reported - Past Family History Brother(s) Additional Family Medical History / Comment(s): Hemophilia Father Family Medical History: No Reported History General Exam Limitations: no limitations General appearance: alert, in distress Head exam: Present: atraumatic, normocephalic, normal inspection Respiratory exam: Present: normal lung sounds bilaterally. Absent: respiratory distress, wheezes, rales, rhonchi, stridor Cardiovascular Exam: Present: regular rate, normal rhythm, normal heart sounds. Absent: systolic murmur, diastolic murmur, rubs, gallop, clicks GI/Abdominal exam: Present: soft, tenderness (Left mid to lower abdomen), normal bowel sounds. Absent: distended Back exam: Present: CVA tenderness (L). Absent: CVA tenderness (R) Neurological exam: Present: alert, oriented X3, CN II-XII intact Psychiatric exam: Present: normal affect, normal mood Skin exam: Present: warm, dry, intact, normal color. Absent: rash Course Vital Signs 06/04/23 06/04/23 06/04/23 11:02 12:27 13:31 Temperature 98 F Pulse Rate 70 70 Respiratory 18 18 18 Rate Blood Pressure 144/87 106/69 116/72 O2 Sat by Pulse 100 98 98 Oximetry 06/04/23 06/04/23 06/04/23 14:26 15:59 17:52 Temperature Pulse Rate 66 70 80 Respiratory 18 18 18 Rate Blood Pressure 111/68 122/87 132/76 O2 Sat by Pulse 98 99 100 Oximetry Medical Decision Making - Medical Decision Making This is a 27-year-old female who presents to the emergency department for abdominal pain and flank pain. Was pt. sent in by a medical professional or institution? @ -No Did you speak to anyone other than the patient for history? @ -No Did you review nursing and triage notes? @ -Yes, and I agree, it is accurate with regards to the patient's symptoms. Were old charts reviewed? @ -No Differential Diagnosis? @ -Differential Abdominal Pain Women: Appendicitis, Cholecystitis, diverticulosis, ischemic bowel, pancreatitis, hepatitis, UTI, gastroenteritis, AAA, incarcerated hernia, bowel obstruction, c onstipation, inflammatory bowel, hepatitis, peptic ulcer disease, splenic infarction, perforated viscus, vulvitis, ovarian torsion, PID, kidney stone, placenta abruption, this is not meant to be an all-inclusive list EKG interpreted by me (3pts min.)? @ -Not obtained X-rays interpreted by me (1pt min.)? @ -Not obtained CT interpreted by me (1pt min.)? @ -Computed tomography scan of the abdomen and pelvis obtained. My interpretation identifies left-sided hydronephrosis. U/S interpreted by me (1pt. min.)? @ -Not obtained What testing was considered but not performed? (CT, X-rays, U/S, labs)? Why? @ -None What meds were considered but not given? Why? @ -None Did you discuss the management of the patient with other professionals? @ -No Did you reconcile home meds? @ -No Was smoking cessation discussed for >3mins.? @ -No Was critical care preformed (if so, how long)? @ -No Were there social determinants of health that impacted care today? How? (Homelessness, low income, unemployed, alcoholism, drug addiction, transportation, low edu. Level, literacy, decrease access to med. care, detention, rehab)? @ -No Was there de-escalation of care discussed even if they declined? (Discuss DNR or withdrawal of care, Hospice)? @ -No What co-morbidities impacted this encounter? (DM, HTN, Smoking, COPD, CAD, Cancer, CVA, Hep., AIDS, mental health diagnosis, sleep apnea, morbid obesity)? @ -None Was patient admitted / discharged? @ -Discharged. Lab work obtained and found to be unremarkable. Urinalysis reveals blood but no evidence of infection. She was found to have mild left- sided hydronephrosis, however her ureter was difficult to track distally and no definite stone could be identified, and they advised that a small distal stone was possible. There were multiple phleboliths and a low attenuation area in the right adnexal/pelvic region thought to relate to a possible ovarian cyst. Patient however exhibited no pain on this side. Given that symptoms are similar to prior stones with the hydronephrosis and blood in her urine, this is likely related to a ureteral calculus or recently passed stone. Her pain was somewhat difficult to control, but eventually well managed in the emergency department. She was given prescriptions for Waterflow and Toradol with dosing instructions reviewed. Patient otherwise discharged home in stable condition. Undiagnosed new problem with uncertain prognosis? @ -None Drug Therapy requiring intensive monitoring for toxicity (Heparin, Nitro, Insulin, Cardizem)? @ -None Were any procedures done? @ -None Diagnosis/symptom? @ -Hydronephrosis Acute, or Chronic, or Acute on Chronic? @ -Acute Uncomplicated (without systemic symptoms) or Complicated (systemic symptoms)? @ -Uncomplicated Side effects of treatment? @ -None Exacerbation, Progression, or Severe Exacerbation] @ -Not applicable Poses a threat to life or bodily function? @ -No Return precautions reviewed in depth, the patient is instructed to return to the emergency department with any new, worsening, or concerning symptoms. Patient verbalized understanding. This case was discussed in detail with the attending ED physician, Dr. Ortega. Presentation, findings, and treatment plan discussed in detail as well. - Lab Data Result diagrams: 06/04/23 12:13 06/04/23 12:13 Lab Results 06/04/23 06/04/23 06/04/23 Range/Units 11:28 11:35 12:13 WBC 5.6 (3.8-10.6) k/uL RBC 4.07 (3.80-5.40) m/uL Hgb 12.9 (11.4-16.0) gm/dL Hct 38.2 (34.0-46.0) % MCV 93.9 (80.0-100.0) fL MCH 31.7 (25.0-35.0) pg MCHC 33.8 (31.0-37.0) g/dL RDW 12.7 (11.5-15.5) % Plt Count 163 (150-450) k/uL MPV 8.9 Neutrophils % 60 % Lymphocytes % 30 % Monocytes % 7 % Eosinophils % 1 % Basophils % 0 % Neutrophils # 3.4 (1.3-7.7) k/uL Lymphocytes # 1.7 (1.0-4.8) k/uL Monocytes # 0.4 (0-1.0) k/uL Eosinophils # 0.1 (0-0.7) k/uL Basophils # 0.0 (0-0.2) k/uL Sodium (137-145) mmol/L Potassium (3.5-5.1) mmol/L Chloride (98-107) mmol/L Carbon Dioxide (22-30) mmol/L Anion Gap mmol/L BUN (7-17) mg/dL Creatinine (0.52-1.04) mg/dL Est GFR (CKD-EPI)AfAm (>60 ml/min/1.73 sqM) Est GFR (CKD-EPI)NonAf (>60 ml/min/1.73 sqM) Glucose (74-99) mg/dL Plasma Lactic Acid Bob (0.7-2.0) mmol/L Calcium (8.4-10.2) mg/dL Total Bilirubin (0.2-1.3) mg/dL AST (14-36) U/L ALT (4-34) U/L Alkaline Phosphatase (38-126) U/L Total Protein (6.3-8.2) g/dL Albumin (3.5-5.0) g/dL Amylase (30-110) U/L Lipase (23-300) U/L Urine Color Yellow Urine Appearance Cloudy H (Clear) Urine pH 7.5 (5.0-8.0) Ur Specific Muse 1.027 (1.001-1.035) Urine Protein Trace H (Negative) Urine Glucose (UA) Negative (Negative) Urine Ketones Negative (Negative) Urine Blood Small H (Negative) Urine Nitrite Negative (Negative) Urine Bilirubin Negative (Negative) Urine Urobilinogen <2.0 (<2.0) mg/dL Ur Leukocyte Esterase Trace H (Negative) Urine RBC 4 (0-5) /hpf Urine WBC 9 H (0-5) /hpf Ur Squamous Epith Cells 10 H (0-4) /hpf Urine Mucus Few H (None) /hpf Urine HCG, Qual Not Detected (Not Detectd) 06/04/23 06/04/23 Range/Units 12:13 12:13 WBC (3.8-10.6) k/uL RBC (3.80-5.40) m/uL Hgb (11.4-16.0) gm/dL Hct (34.0-46.0) % MCV (80.0-100.0) fL MCH (25.0-35.0) pg MCHC (31.0-37.0) g/dL RDW (11.5-15.5) % Plt Count (150-450) k/uL MPV Neutrophils % % Lymphocytes % % Monocytes % % Eosinophils % % Basophils % % Neutrophils # (1.3-7.7) k/uL Lymphocytes # (1.0-4.8) k/uL Monocytes # (0-1.0) k/uL Eosinophils # (0-0.7) k/uL Basophils # (0-0.2) k/uL Sodium 140 (137-145) mmol/L Potassium 3.9 (3.5-5.1) mmol/L Chloride 103 (98-107) mmol/L Carbon Dioxide 26 (22-30) mmol/L Anion Gap 11 mmol/L BUN 13 (7-17) mg/dL Creatinine 0.61 (0.52-1.04) mg/dL Est GFR (CKD-EPI)AfAm >90 (>60 ml/min/1.73 sqM) Est GFR (CKD-EPI)NonAf >90 (>60 ml/min/1.73 sqM) Glucose 87 (74-99) mg/dL Plasma Lactic Acid Bob 1.1 (0.7-2.0) mmol/L Calcium 9.5 (8.4-10.2) mg/dL Total Bilirubin 0.3 (0.2-1.3) mg/dL AST 18 (14-36) U/L ALT 15 (4-34) U/L Alkaline Phosphatase 63 (38-126) U/L Total Protein 7.6 (6.3-8.2) g/dL Albumin 4.6 (3.5-5.0) g/dL Amylase 56 (30-110) U/L Lipase 59 (23-300) U/L Urine Color Urine Appearance (Clear) Urine pH (5.0-8.0) Ur Specific Muse (1.001-1.035) Urine Protein (Negative) Urine Glucose (UA) (Negative) Urine Ketones (Negative) Urine Blood (Negative) Urine Nitrite (Negative) Urine Bilirubin (Negative) Urine Urobilinogen (<2.0) mg/dL Ur Leukocyte Esterase (Negative) Urine RBC (0-5) /hpf Urine WBC (0-5) /hpf Ur Squamous Epith Cells (0-4) /hpf Urine Mucus (None) /hpf Urine HCG, Qual (Not Detectd) - Radiology Data Radiology results: report reviewed, image reviewed Disposition Clinical Impression: Hydronephrosis, left, Ureteral calculus, left Disposition: HOME SELF-CARE Instructions (If sedation given, give patient instructions): Renal Colic (ED), Hydronephrosis (ED) Additional Instructions: Return to the emergency department with any new, worsening, or concerning symptoms. Take the Toradol with Tylenol as needed for pain relief. If you choose to take the Toradol, do not take any other anti-inflammatories such as ibuprofen, take one or the other. Take the Waterflow sparingly when your pain is the most severe and be aware that it may make you drowsy. Make sure that you remain well-hydrated. Follow up with your primary care provider in 1-2 days. Prescriptions: HYDROcodone/APAP 7.5-325MG [Waterflow 7.5-325] 1 tab PO Q6HR PRN 3 Days #12 tab PRN Reason: Pain Ketorolac [Toradol] 10 mg PO Q6HR PRN #15 tab PRN Reason: Pain Is patient prescribed a controlled substance at d/c from ED?: Yes When asked, does pt state using other controlled substances?: No If prescribed controlled substance>3 days was MAPS reviewed?: Prescribed <3 Days Referrals: Anjel El MD [Primary Care Provider] - 1-2 days
[2023-06-04 12:45] LABS: ALT 15 U/L (4-34); AST 18 U/L (14-36); African American GFR (CKD) >90 (>60 ml/min/1.73 sqM); Albumin 4.6 g/dL (3.5-5.0); Alkaline Phosphatase 63 U/L (38-126); Amylase 56 U/L (30-110); Anion Gap 11 mmol/L; Blood Urea Nitrogen 13 mg/dL (7-17); Calcium 9.5 mg/dL (8.4-10.2); Carbon Dioxide 26 mmol/L (22-30); Chloride 103 mmol/L (98-107); Glucose 87 mg/dL (74-99); Lipase 59 U/L (23-300); Non-African American GFR(CKD) >90 (>60 ml/min/1.73 sqM); Potassium 3.9 mmol/L (3.5-5.1); Sodium 140 mmol/L (137-145); Total Bilirubin 0.3 mg/dL (0.2-1.3); Total Protein 7.6 g/dL (6.3-8.2)
--- NOTE | 2023-06-04 13:17 | CT ---
EXAMINATION TYPE: CT abdomen pelvis wo con CT DLP: 432.2 mGycm, Automated exposure control for dose reduction was used. DATE OF EXAM: 06/04/2023 12:25 PM COMPARISON: CLINICAL INDICATION:Female, 27 years old with history of Left flank pain; LT flank pain, hx claudio, ki dney issues TECHNIQUE: Axial CT of the abdomen and pelvis. Sagittal and coronal reformats were created on a [employer] workstation. Contrast used: mL of , (none if empty) Oral contrast used: without Oral Contrast (none if empty) FINDINGS: Exam is limited by lack of contrast. LOWER CHEST: Heart size upper normal. Lung bases are clear. ABDOMEN LIVER: Unremarkable GALLBLADDER AND BILE DUCTS: The gallbladder is surgically absent. No biliary dilatation suggested. PANCREAS: Unremarkable. SPLEEN: Unremarkable. ADRENAL GLANDS: Unremarkable. KIDNEYS AND URETERS: Multiple pelvic phleboliths, interfere with interpretation. Punctate calculus peralta ggested in the lower pole right kidney. No right ureteral calculi or hydronephrosis. There is a 2 mm calculus in the lower pole left kidney. Mild left-sided hydronephrosis appears present. The left uret er is difficult to trace distally, there are multiple pelvic phleboliths and there could be a distal ureteral stone however uncertain. PELVIS BLADDER: Fluid-filled and shows no definite intraluminal calculi. REPRODUCTIVE: Not well evaluated by CT. The uterus is slightly retroverted, otherwise grossly unremar kable. Ovaries are not clearly demonstrated. In the right pelvis, there is low-attenuation which appe ars of near fluid density however appears somewhat more focal and rounded posteriorly measuring 3.1 c m, and anteriorly measuring about 2.8 cm. ABDOMEN & PELVIS STOMACH AND BOWEL: Stomach and small bowel show no significant distention to suggest obstruction. The cecum is low lying, extending down into the pelvis near the urinary bladder. A gas-filled appendix i s seen, without evidence of inflammation. There is moderate stool seen throughout the colon through t o the rectal level. PERITONEUM/RETROPERITONEUM: No evidence of pneumoperitoneum or free fluid in the abdomen. There is the suggestion of some possible pelvic fluid as above. VASCULATURE: No evidence of aortic aneurysm. MUSCULOSKELETAL: No acute osseous abnormalities. No significant degenerative changes. LYMPH NODES: No gross evidence for lymphadenopathy. SOFT TISSUE/ABDOMINAL WALL: Unremarkable IMPRESSION: 1. Bilateral renal calculi, largest 2 mm in the left lower pole. 2. Mild left-sided hydronephrosis appears present, however the ureter is difficult to trace distally and no definite ureteral stone can be identified. There are multiple phleboliths in the pelvis, and a small distal ureteral stone is possible. 3. Right adnexal/pelvic areas of low-attenuation, could relate to ovarian cyst/cystic lesion and/or some free pelvic fluid. Further evaluation with ultrasound could be considered as clinically warrante d. 4. Status post cholecystectomy.
[2023-06-04] MEDS ORDERED: HYDROmorphone 1 MG/ML 1 ML SYRINGE IVP STA ×2 (13:43→15:35)
[2023-06-04] MEDS ORDERED: HYDROcodone/APAP 7.5-325MG 1 EACH TAB PO ONE (15:21)
[2023-06-04 17:58] VITALS: BP 132/76; PULSE 80
== END 2023-06-04 17:56 | disposition home or self-care (01) ==
LOC: EC 10:49
DX: N13.2 Hydronephrosis with renal and ureteral calculous obstruction (principal); I10 Essential (primary) hypertension; F17.200 Nicotine dependence, unspecified, uncomplicated
CPT/HCPCS: 99284; 96374; 96375 ×2; 96376 ×2; 96361; 36415; 80053; 82150; 83605; 83690; 85025; 81001; 81025; 74176; J2270; J1170; J1885

== ENCOUNTER 2024-04-11 00:17 | Emergency (ER) | payer OTHER ==
[2024-04-11 00:21] VITALS: RESP 18
[2024-04-11 01:54] LABS: Appearance,Urine Cloudy (Clear); Color,Urine Orange
[2024-04-11] MEDS: KETOROLAC 15 MG/ML 1 ML VIAL IVP STA (01:59)
[2024-04-11] MEDS: LIDOCAINE 4% PATCH TOPICAL ONE (02:01)
[2024-04-11 02:12] LABS: Basophils % (A) 0 %; Eosinophils # (A) 0.1 k/uL (0-0.7); Eosinophils % (A) 1 %; HCT 38.1 % (34.0-46.0); HGB 12.9 gm/dL (11.4-16.0); Lymphocytes # (A) 1.7 k/uL (1.0-4.8); Lymphocytes % (A) 17 %; MCH 31.2 pg (25.0-35.0); MCHC 33.9 g/dL (31.0-37.0); Mean Platelet Volume 8.8; Monocytes # (A) 0.6 k/uL (0-1.0); Monocytes % (A) 5 %; Neutrophils # (A) 7.9 k/uL (1.3-7.7); Neutrophils % (A) 76 %; Platelet Count 163 k/uL (150-450); RBC 4.14 m/uL (3.80-5.40); RDW 12.3 % (11.5-15.5); WBC 10.5 k/uL (3.8-10.6)
[2024-04-11 02:13] LABS: African American GFR (CKD) >90 (>60 ml/min/1.73 sqM); Anion Gap 6 mmol/L; Blood Urea Nitrogen 12 mg/dL (7-17); Carbon Dioxide 28 mmol/L (22-30); Chloride 107 mmol/L (98-107); Glucose 99 mg/dL (74-99); Potassium 3.9 mmol/L (3.5-5.1); Sodium 141 mmol/L (137-145)
[2024-04-11 02:14] LABS: Bacteria,Urine Many /hpf; RBC,Urine 144 /hpf (0-5); Squamous Epithelial Cell,Urine 9 /hpf (0-4); WBC,Urine 75 /hpf (0-5)
[2024-04-11 02:14] LABS: ALT 13 U/L (4-34); AST 24 U/L (14-36); Albumin 4.4 g/dL (3.5-5.0); Alkaline Phosphatase 63 U/L (38-126); Calcium 9.3 mg/dL (8.4-10.2); Non-African American GFR(CKD) >90 (>60 ml/min/1.73 sqM); Total Bilirubin 0.6 mg/dL (0.2-1.3)
[2024-04-11] MEDS: MORPHINE SULFATE 4 MG/ML SYRINGE IVP STA (04:34)
--- NOTE | 2024-04-11 04:39 | CT ---
EXAM: CT Abdomen and Pelvis Without Intravenous Contrast CLINICAL HISTORY: ITS.REASON CT Reason: flank pain TECHNIQUE: Axial computed tomography images of the abdomen and pelvis without intravenous contrast. CTDI is 8.3 mGy and DLP is 471.6 mGy-cm. This CT exam was performed using one or more of the following dose reduction techniques: automated exposure control, adjustment of the mA and/or kV according to patient size, and/or use of iterative reconstruction technique. COMPARISON: CT abdomen pelvis October 30, 2022. FINDINGS: Lung bases: Unremarkable. No mass. No consolidation. ABDOMEN: Liver: Unremarkable. Gallbladder and bile ducts: Cholecystectomy. No ductal dilation. Pancreas: Unremarkable. No ductal dilation. Spleen: Unremarkable. No splenomegaly. Adrenals: Unremarkable. No mass. Kidneys and ureters: Early medullary nephrocalcinosis. Correlate for hypercalcemic states. Developing nonobstructing 1 mm stone in the LEFT lower pole. Stomach and bowel: Unremarkable. No obstruction. No mucosal thickening. PELVIS: Appendix: No findings to suggest acute appendicitis. Bladder: Unremarkable. No stones. Reproductive: RIGHT ovarian cyst measures 4.1 x 3.6 cm. Nonemergent pelvic ultrasound correlation recommended. ABDOMEN and PELVIS: Intraperitoneal space: Unremarkable. No free air. No significant fluid collection. Bones/joints: No acute fracture. No dislocation. Soft tissues: Unremarkable. Vasculature: Unremarkable. No abdominal aortic aneurysm. Lymph nodes: Unremarkable. No enlarged lymph nodes. IMPRESSION: 1. Cholecystectomy. 2. RIGHT ovarian cyst measures 4.1 x 3.6 cm. Nonemergent pelvic ultrasound correlation recommended. 3. Early medullary nephrocalcinosis. Correlate for hypercalcemic states. Developing nonobstructing 1 mm stone in the LEFT lower pole.
--- NOTE | 2024-04-11 05:01 | ED ---
Abdominal Pain HPI - General Chief Complaint: Abdominal Pain Stated Complaint: Abdominal Pain Time Seen by Provider: 04/11/24 01:23 Source: patient Mode of arrival: ambulatory - History of Present Illness Initial Comments: 28-year-old female presenting with chief complaint of abdominal and back pain. Patient is having pain to the bilateral flanks. She does have history of kidney stones. She is also having some pain that wraps around from the flank into the abdomen on each side. She does admit to dysuria. No hematuria. No vaginal bleeding or abnormal discharge. No fevers or chills. She admits to nausea with no vomiting. No diarrhea. - Related Data Home Medications Medication Instructions Recorded Confirmed Ibuprofen [Motrin] 600 mg PO Q6H PRN 10/30/22 10/30/22 Previous Rx's Medication Instructions Recorded HYDROcodone/APAP 7.5-325MG [[place] 1 tab PO Q6HR PRN 3 Days #12 tab 06/04/23 7.5-325] Ketorolac [Toradol] 10 mg PO Q6HR PRN #15 tab 06/04/23 Cephalexin [Keflex] 500 mg PO Q6HR 7 Days #28 cap 04/11/24 Allergies Allergy/AdvReac Type Severity Reaction Status Date / Time No Known Allergies Allergy Verified 04/11/24 00:21 Review of Systems ROS Statement: Those systems with pertinent positive or pertinent negative responses have been documented in the HPI. ROS Other: All systems not noted in ROS Statement are negative. Past Medical History Past Medical History: Hypertension Additional Past Medical History / Comment(s): Patient has had 4 spontaneous vaginal deliveries ranging from 8 lbs. 9 oz.-9 lbs. 6 oz. History of HTN - states she took antihypertensives 3 years ago and just stopped taking them. History of Any Multi-Drug Resistant Organisms: MRSA Date of last positivie culture/infection: 08/10/20 MDRO Source:: MRSA URINE Past Surgical History: Tubal Ligation Past Anesthesia/Blood Transfusion Reactions: No Reported Reaction Additional Past Anesthesia/Blood Transfusion Reaction / Comment(s): n o hx. Past Psychological History: No Psychological Hx Reported Smoking Status: Current every day smoker, Vaper Past Alcohol Use History: None Reported Past Drug Use History: None Reported - Past Family History Brother(s) Additional Family Medical History / Comment(s): Hemophilia Father Family Medical History: No Reported History General Exam General appearance: alert, in no apparent distress Head exam: Present: atraumatic, normocephalic, normal inspection Eye exam: Present: normal appearance, EOMI Neck exam: Present: normal inspection. Absent: meningismus Respiratory exam: Present: normal lung sounds bilaterally. Absent: respiratory distress, wheezes, rales, rhonchi, stridor Cardiovascular Exam: Present: regular rate, normal rhythm, normal heart sounds. Absent: systolic murmur, diastolic murmur, rubs, gallop, clicks GI/Abdominal exam: Present: soft, tenderness (Nonlocalized). Absent: distended, guarding, rebound, rigid Back exam: Present: tenderness (Tenderness to the lower back with no true CVA tenderness). Absent: CVA tenderness (R), CVA tenderness (L) Neurological exam: Present: alert, oriented X3 Psychiatric exam: Present: normal affect, normal mood Skin exam: Present: warm, dry Course Vital Signs 04/11/24 04/11/24 04/11/24 00:18 01:33 04:32 Temperature 98.2 F 98.0 F 98.0 F Pulse Rate 99 73 83 Respiratory 18 18 18 Rate Blood Pressure 130/77 105/60 101/84 O2 Sat by Pulse 99 96 97 Oximetry 04/11/24 05:43 Temperature 97.8 F Pulse Rate 66 Respiratory 18 Rate Blood Pressure 101/69 O2 Sat by Pulse 99 Oximetry Medical Decision Making - Medical Decision Making Was pt. sent in by a medical professional or institution (MUSTAPHA Valladares, LABEL PRESS OPERATOR, urgent care, hospital, or jail...) When possible be specific @ -No Did you speak to anyone other than the patient for history (EMS, parent, family, police, friend...)? What history was obtained from this source @ -No Did you review nursing and triage notes (agree or disagree)? Why? @ -I reviewed and agree with nursing and triage notes Were old charts reviewed (outside hosp., previous admission, EMS record, old EKG, old radiological studies, urgent care reports/EKG's, jail records)? Report findings @ -No old charts were reviewed Differential Diagnosis (chest pain, altered mental status, abdominal pain women, abdominal pain men, vaginal bleeding, weakness, fever, dyspnea, syncope, headache, dizziness, GI bleed, back pain, seizure, CVA, palpatations, mental health, musculoskeletal)? @ - MDM Differential Back Pain: Strain, zoster, cauda equina syndrome, epidural abscess, vertebral osteomyelitis, discitis, fracture, subluxation, disc herniation, DJD, spinal stenosis, dissection, AAA, pancreatitis, peptic ulcer disease, pyelonephritis, kidney stone this is not meant to be an all-inclusive list. EKG interpreted by me (3pts min.). @ -As above X-rays interpreted by me (1pt min.). @ -None done CT interpreted by me (1pt min.). @ -CT shows cholecystectomy. Right ovarian cyst measures 4.1 x 3.6 cm. Nonemergent pelvic ultrasound correlation recommended. Early medullary nephrocalcinosis. Correlate for hypercalcemic states. Developing nonobstructing 1 mm stone in the left renal pole U/S interpreted by me (1pt. min.). @ -None done What testing was considered but not performed or refused? (CT, X-rays, U/S, labs)? Why? @ -None What meds were considered but not given or refused? Why? @ -None Did you discuss the management of the patient with other professionals (professionals i.e. , PA, LABEL PRESS OPERATOR, lab, RT, psych nurse, social work specialist, restorer lace and textiles, teacher, loan review officer, registered nurse hh case manager)? Give summary @ -No Was smoking cessation discussed for >3mins.? @ -No Was critical care preformed (if so, how long)? @ -No Were there social determinants of health that impacted care today? How? (Homelessness, low income, unemployed, alcoholism, drug addiction, transportation, low edu. Level, literacy, decrease access to med. care, snf, rehab)? @ -No Was there de-escalation of care discussed even if they declined (Discuss DNR or withdrawal of care, Hospice)? DNR status @ -No What co-morbidities impacted this encounter? (DM, HTN, Smoking, COPD, CAD, Cancer, CVA, ARF, Chemo, Hep., AIDS, mental health diagnosis, sleep apnea, morbid obesity)? @ -None Was patient admitted / discharged? Hospital course, mention meds given and route, prescriptions, significant lab abnormalities, going to OR and other pertinent info. @ -28-year-old female presenting with chief complaint of lower back pain that radiates into the abdomen. History and physical examination are conducted. No leukocytosis or anemia. CMP is essentially unremarkable. Urine shows 144 RBCs and [address] is obtained which shows right ovarian cyst, patient is not having localized right-sided abdominal pain, this is more of a generalized abdominal pain that radiates from her back on each side. She has a developing renal stone in the left side. Patient is educated on today's findings. She will be treated for UTI. She is given 1 g of Rocephin here in the ER and will be sent home on Keflex. Discharged. Follow-up with PCP. Rep ort back to ER with any new or worsening symptoms. Discussed return parameters and answered all questions. Patient conveyed verbal understanding and agreed to the plan. I discussed this case in detail with my attending Dr. Junior Undiagnosed new problem with uncertain prognosis? @ -No Drug Therapy requiring intensive monitoring for toxicity (Heparin, Nitro, Insulin, Cardizem)? @ -No Were any procedures done? @ -No Diagnosis/symptom? @ -UTI Acute, or Chronic, or Acute on Chronic? @ -Acute Uncomplicated (without systemic symptoms) or Complicated (systemic symptoms)? @ -Uncomplicated Side effects of treatment? @ -No Exacerbation, Progression, or Severe Exacerbation? @ -No Poses a threat to life or bodily function? How? (Chest pain, USA, OR, pneumonia, PE, COPD, DKA, ARF, appy, cholecystitis, CVA, Diverticulitis, Homicidal, Suicidal, threat to staff... and all critical care pts) @ -Low likelihood - Lab Data Result diagrams: 04/11/24 01:54 04/11/24 01:54 Lab Results 04/11/24 04/11/24 04/11/24 Range/Units 01:44 01:44 01:54 WBC 10.5 (3.8-10.6) k/uL RBC 4.14 (3.80-5.40) m/uL Hgb 12.9 (11.4-16.0) gm/dL Hct 38.1 (34.0-46.0) % MCV 92.0 (80.0-100.0) fL MCH 31.2 (25.0-35.0) pg MCHC 33.9 (31.0-37.0) g/dL RDW 12.3 (11.5-15.5) % Plt Count 163 (150-450) k/uL MPV 8.8 Neutrophils % 76 % Lymphocytes % 17 % Monocytes % 5 % Eosinophils % 1 % Basophils % 0 % Neutrophils # 7.9 H (1.3-7.7) k/uL Lymphocytes # 1.7 (1.0-4.8) k/uL Monocytes # 0.6 (0-1.0) k/uL Eosinophils # 0.1 (0-0.7) k/uL Basophils # 0.0 (0-0.2) k/uL Sodium (137-145) mmol/L Potassium (3.5-5.1) mmol/L Chloride (98-107) mmol/L Carbon Dioxide (22-30) mmol/L Anion Gap mmol/L BUN (7-17) mg/dL Creatinine (0.52-1.04) mg/dL Est GFR (CKD-EPI)AfAm (>60 ml/min/1.73 sqM) Est GFR (CKD-EPI)NonAf (>60 ml/min/1.73 sqM) Glucose (74-99) mg/dL Calcium (8.4-10.2) mg/dL Total Bilirubin (0.2-1.3) mg/dL AST (14-36) U/L ALT (4-34) U/L Alkaline Phosphatase (38-126) U/L Total Protein (6.3-8.2) g/dL Albumin (3.5-5.0) g/dL Urine Color [place] Urine Appearance Cloudy H (Clear) Urine RBC 144 H (0-5) /hpf Urine WBC 75 H (0-5) /hpf Ur Squamous Epith Cells 9 H (0-4) /hpf Urine Bacteria Many H (None) /hpf Urine HCG, Qual Not Detected (Not Detectd) 04/11/24 Range/Units 01:54 WBC (3.8-10.6) k/uL RBC (3.80-5.40) m/uL Hgb (11.4-16.0) gm/dL Hct (34.0-46.0) % MCV (80.0-100.0) fL MCH (25.0-35.0) pg MCHC (31.0-37.0) g/dL RDW (11.5-15.5) % Plt Count (150-450) k/uL MPV Neutrophils % % Lymphocytes % % Monocytes % % Eosinophils % % Basophils % % Neutrophils # (1.3-7.7) k/uL Lymphocytes # (1.0-4.8) k/uL Monocytes # (0-1.0) k/uL Eosinophils # (0-0.7) k/uL Basophils # (0-0.2) k/uL Sodium 141 (137-145) mmol/L Potassium 3.9 (3.5-5.1) mmol/L Chloride 107 (98-107) mmol/L Carbon Dioxide 28 (22-30) mmol/L Anion Gap 6 mmol/L BUN 12 (7-17) mg/dL Creatinine 0.81 (0.52-1.04) mg/dL Est GFR (CKD-EPI)AfAm >90 (>60 ml/min/1.73 sqM) Est GFR (CKD-EPI)NonAf >90 (>60 ml/min/1.73 sqM) Glucose 99 (74-99) mg/dL Calcium 9.3 (8.4-10.2) mg/dL Total Bilirubin 0.6 (0.2-1.3) mg/dL AST 24 (14-36) U/L ALT 13 (4-34) U/L Alkaline Phosphatase 63 (38-126) U/L Total Protein 7.0 (6.3-8.2) g/dL Albumin 4.4 (3.5-5.0) g/dL Urine Color Urine Appearance (Clear) Urine RBC (0-5) /hpf Urine WBC (0-5) /hpf Ur Squamous Epith Cells (0-4) /hpf Urine Bacteria (None) /hpf Urine HCG, Qual (Not Detectd) Disposition Clinical Impression: UTI (urinary tract infection) Disposition: HOME SELF-CARE Condition: Good Instructions (If sedation given, give patient instructions): Urinary Tract Infection in Women (ED) Additional Instructions: Follow-up with PCP. Report back to ER with any new or worsening symptoms. Take medication as prescribed. Prescriptions: Cephalexin [Keflex] 500 mg PO Q6HR 7 Days #28 cap Is patient prescribed a controlled substance at d/c from ED?: No Referrals: None,Stated [Primary Care Provider] - 1-2 days [facility] [[facility]] - 1-2 days Time of Disposition: 05:00
[2024-04-11] MEDS: SODIUM CHLORIDE 0.9% 1,000 ML IV ONE (05:14)
[2024-04-11] MEDS: cefTRIAXone IN SWFI 1,000 MG/10 ML SYRINGE IVP STA (05:16)
[2024-04-11 05:44] VITALS: BP 101/69; PULSE 66; TEMP 97.8
== END 2024-04-11 05:50 | disposition home or self-care (01) ==
LOC: EC 00:17
CPT/HCPCS: 36415; 74176; 80053; 81001; 81025; 85025; 87077; 87086; 87186; 96374; 96375; 99284